=== PATIENT | female | born 1955 | race Caucasian/White ===

== ENCOUNTER → 2020-03-20 09:13 | Outpatient (CLI) | payer MEDICAID, SELFPAY ==
--- NOTE | 2020-03-20 09:13 | US_ITS ---
PROCEDURE: US GALLBLADDER CLINICAL INDICATION: nausea and pain Right upper quadrant pain diarrhea COMPARISON: No exams were available for comparison FINDINGS: Pancreas: Unremarkable/Not well seen Liver: Unremarkable. There is appropriate direction of blood flow within a non dilated portal vein. Right kidney: 3 cm cyst is present along the lower pole of the right kidney. Unremarkable appearing. No hydronephrosis. Gallbladder: No stones are evident. There is no gallbladder wall thickening. Common duct is normal in diameter at 5 mm. IMPRESSION: Negative gallbladder ultrasound. No stones evident. 3 cm right renal cyst Dictated by: Dennys Almaraz MD 03/21/2020 10:21 Electronically signed by Dennys Almaraz MD in [place] 03/21/2020 10:21
--- NOTE | 2020-03-20 09:13 | US_ITS ---
PROCEDURE: US THYROID CLINICAL INDICATION: r/o mass Thyroid nodule COMPARISON: No exams were available for comparison FINDINGS: The right lobe is 3.6 x 1.3 x 1.3 cm. 3 mm mixed nodule mid polar region with some heterogeneous echogenicity. The left lobe is 4.2 x 1.3 x 1.2 cm. There is an isoechoic 1 cm solid nodule in the mid aspect of the left lobe. A 5 mm cyst is present in the lower pole with some internal echoes IMPRESSION: Small bilateral thyroid nodules measuring up to 1 cm in the mid polar region on the left, T rads level 2. Recommend follow-up in 6 months. Dictated by: Dennys Almaraz MD 03/22/2020 08:12 Electronically signed by Dennys Almaraz MD in [place] 03/22/2020 08:12
== END ==
PROVIDERS: PCP Family Medicine; Visit Provider Family Medicine
DX: R10.9 Unspecified abdominal pain (principal); R11.0 Nausea; E04.9 Nontoxic goiter, unspecified
CPT/HCPCS: 76536; 76705

== ENCOUNTER → 2020-06-07 15:15 | Outpatient (CLI) | payer MEDICAID, SELFPAY ==
[2020-06-08 16:53] LABS: Basophils # 0.1 K/mm3 (0-0.2); Basophils % 1.5 % (0.1-2.0); Eosinophils # 0.2 K/mm3 (0.0-0.4); Eosinophils % 2.1 % (0.1-12.0); Hemoglobin 17.4 g/dL (12.2-16.2); Lymphocytes # 2.8 K/mm3 (0.7-4.5); Mean Corpuscular Hemoglobin 31.5 pg (27.0-31.2); Mean Corpuscular Volume 101.6 fl (81-99); Mean Platelet Volume 9.6 fl (7.4-10.4); Monocytes # 0.4 K/mm3 (0.1-1.0); Monocytes % 4.6 % (1.7-9.3); Neutrophils # 5.5 K/mm3 (1.8-7.8); Neutrophils % 60.7 % (37.0-80.0); Platelet Count 321 K/mm3 (142-424); Red Blood Count 5.51 M/mm3 (4.20-5.40); Red Cell Distribution Width 13.5 % (11.5-17.5); White Blood Count 9.1 K/mm3 (4.8-10.8)
[2020-06-08 17:09] LABS: Alanine Aminotransferase 17 U/L (12-78); Albumin/Globulin Ratio 1.5 (1.1-1.8); Alkaline Phosphatase 103 U/L (38-126); Anion Gap 10.7 mEq/L (5-15); Aspartate Amino Transferase 34 U/L (14-36); Bilirubin,Total 0.5 mg/dl (0.2-1.3); Blood Urea Nitrogen 16 mg/dl (7-17); Calcium 9.4 mg/dl (8.4-10.2); Carbon Dioxide 33 mmol/L (22.0-30.0); Chloride 100 mmol/L (98-107); Estimated Glomerular Filt Rate 50 ml/min (>60); GFR (African American) 61 ML/MIN (>60); Globulin 2.6 g/dL (1.3-3.2); Glucose 73 mg/dl (74-100); Potassium 3.7 mmoL/L (3.5-5.1); Sodium 140 mmol/L (136-145); Total Protein,Serum 6.6 g/dl (6.3-8.2)
[2020-06-08 17:26] LABS: T4 (Thyroxine) 9.2 ug/dl (5.53-11.0)
[2020-06-08 17:40] LABS: Thyroid Stimulating Hormone 1.64 uIU/mL (0.465-4.68)
== END ==
PROVIDERS: Visit Provider Family Medicine
DX: G62.9 Polyneuropathy, unspecified (principal); Z98.890 Other specified postprocedural states
CPT/HCPCS: 80053; 84436; 84443; 85025

== ENCOUNTER 2020-11-02 16:23 | Emergency (ER) | payer MEDICAID, SELFPAY ==
[2020-11-02 16:25] VITALS: BP 96/53; PULSE 83; RESP 16; TEMP 37; O2SAT 98; BMI 21.2
--- NOTE | 2020-11-02 16:42 | XR_ITS ---
PROCEDURE: XR FOOT RT MIN 3V CLINICAL INDICATION: injury Pain COMPARISON: No exams were available for comparison FINDINGS: No fracture or dislocation. No lytic or blastic change. There is normal mineralization. The joint spaces are well-preserved. No significant degenerative/arthritic changes. No erosive changes evident. Other findings:None. IMPRESSION: No acute findings. Dictated by: Dennys Almaraz MD 11/02/2020 17:33 Dennys Almaraz MD in [place] 11/02/2020 17:33
--- NOTE | 2020-11-02 16:42 | HMH.EDGENADL ---
ED Disposition Clinical Impression: Right ankle sprain Qualifiers: Encounter type: initial encounter Involved ligament of ankle: unspecified ligament Qualified Code(s): S93.401A - Sprain of unspecified ligament of right ankle, initial encounter Right foot sprain Qualifiers: Encounter type: initial encounter Qualified Code(s): S93.601A - Unspecified sprain of right foot, initial encounter Fracture, fibula, proximal Qualifiers: Encounter type: initial encounter Fracture type: closed Fracture morphology: unspecified fracture morphology Laterality: right Qualified Code(s): S82.831A - Other fracture of upper and lower end of right fibula, initial encounter for closed fracture Disposition: Home, Self-Care Condition on Discharge: Good Instructions: DI for Ankle Sprain, Fibula Shaft Fracture Additional Instructions: Crutches as needed. Orthopedic boot. Ice and elevation to reduce swelling and pain. Ibuprofen for pain. Follow-up with Dr. Gunn, next week. Call Thursday to make appointment Referrals: Branden Rivas MD [Primary Care Provider] - - Critical Care Critical Care Time: No Attestation: On 11/02/20, the high probability of a clinically significant, sudden or life threatening deterioration of the following system(s) required my full and direct attention, intervention and personal management. The time I documented below is in addition to time spent performing reported procedures but includes the following listed in this critical care notation. Medical Decision Making - Medical Records Medical records reviewed: Yes: I reviewed the patient's medical records. MR Comment: Records obtained from [facility]. During the patient's emergency department visit, she had x-rays of both ankles and her right knee. No acute ankle fractures noted. Old avulsion fracture noted left navicular. Unchanged from previous x-rays. Fracture of the fibular neck right lower extremity. - Gerard Inquiry Pt receiving controlled substance: No Vital Signs: 11/02/20 16:25 11/02/20 17:20 Temperature 98.6 F Temperature Source Oral Pulse Rate [Radial] 83 75 Respiratory Rate 16 18 Blood Pressure [Right Arm] 96/53 L 107/60 L Blood Pressure Mean [Right Arm] 67 75 Blood Pressure Source [Right Arm] Automatic Cuff Blood Pressure Position [Right Arm] Sitting Sitting 02 Sat by Pulse Oximetry 98 96 Oxygen Delivery Method Room Air Room Air Orders (Tests/Meds): ORDERS Category Date Time Status Ankle XR -Right minimum 3 Views [XR ankle RT min 3V] Exams 11/02/20 16:43 Taken Stat Foot XR right minimum 3 views [XR foot RT min 3V] Stat Exams 11/02/20 16:42 Taken Tibia/fibula XR right 2 views [XR tibia fibula RT 2V] Exams 11/02/20 16:43 Taken Stat - Radiology Data #1 Image(s): Tib/Fib, Ankle, Foot/Toes Image Reviewed: Yes I reviewed the patient's radiology image Ankle, foot, tib-fib: Acute fracture proximal right fibula. No fracture seen of the ankle or foot. There is soft tissue swelling present. General Adult HPI - General Chief complaint: PAIN Stated complaint: physician referel AO fall injured R knee and ankle Time Seen by Provider: 11/02/20 16:30 Mode of Arrival: Wheelchair Limitations: No Limitations Description of Symptoms (Recalled from ER Triage Doc. by RN): TO ED PER [facility] PT SENT FROM DR RIVAS' OFFICE FOR EVAL DUE TO PAIN RT LEG AND ANKLE. C/O PAIN RT ANKLE AND RT LOWER LEG PT STATES FELL LAST THURSDAY SEEN [facility] DX WITH FRACTURE LEG AND ANKLE SENT HOME WITH KNEE IMMOBILIZER, SEEN BY ORTHO AND IMMOBILIZER WAS D/[facility] AND PT WAS TOLD TO WALK ON IT PT STATES SHE HAS BEEN UNABLE TO BEAR WEIGHT. - History of Present Illness HPI narrative: The patient was sent from her primary care provider, Dr. Rivas, for injuries to her right knee and right ankle. She fell on Thursday 5 days ago at when she got up from the couch. She twisted her ankle. She was seen in the emergency department at
--- NOTE | 2020-11-02 16:43 | XR_ITS ---
PROCEDURE: XR TIBIA FIBULA RT 2V CLINICAL INDICATION: injury Pain COMPARISON: No exams were available for comparison FINDINGS: There is a nondisplaced fracture involving the proximal shaft of the fibula 3 cm distal to the proximal articular surface of the fibula. The joint spaces are well-preserved. No significant degenerative/arthritic changes. No erosive changes evident. Other findings:None. IMPRESSION: Nondisplaced proximal fibular fracture Dictated by: Dennys Almaraz MD 11/02/2020 17:31 Dennys Almaraz MD in [place] 11/02/2020 17:31
--- NOTE | 2020-11-02 16:43 | XR_ITS ---
PROCEDURE: XR ANKLE RT MIN 3V CLINICAL INDICATION: injury Pain pain COMPARISON: No exams were available for comparison FINDINGS: No fracture or dislocation. No lytic or blastic change. There is normal mineralization. The joint spaces are well-preserved. No significant degenerative/arthritic changes. No erosive changes evident. Other findings:Mild soft tissue swelling both medial and lateral. IMPRESSION: Soft tissue swelling otherwise negative Dictated by: Dennys Almaraz MD 11/02/2020 17:32 Dennys Almaraz MD in [place] 11/02/2020 17:32
[2020-11-02 17:20] VITALS: BP 107/60; PULSE 75; RESP 18; O2SAT 96
--- NOTE | 2020-11-02 17:28 | PC.NURSE ---
checked on pt got her a warm blanket. nothing else was needed at this time
[2020-11-02 17:39] VITALS: BP 103/63; PULSE 82; RESP 18; O2SAT 96
[2020-11-02 18:04] VITALS: BP 103/63; PULSE 82; RESP 18; TEMP 37; O2SAT 96
== END 2020-11-02 18:05 | disposition home or self-care (01) ==
PROVIDERS: Emergency Provider Emergency Medicine; PCP Family Medicine
DX: S82.831A Other fracture of upper and lower end of right fibula, initial encounter for closed fracture (principal); X50.1XXA Overexertion from prolonged static or awkward postures, initial encounter; Y92.019 Unspecified place in single-family (private) house as the place of occurrence of the external cause; S93.401A Sprain of unspecified ligament of right ankle, initial encounter; S93.601A Unspecified sprain of right foot, initial encounter; K21.9 Gastro-esophageal reflux disease without esophagitis; I25.10 Atherosclerotic heart disease of native coronary artery without angina pectoris; J44.9 Chronic obstructive pulmonary disease, unspecified; F41.8 Other specified anxiety disorders; Z79.899 Other long term (current) drug therapy
CPT/HCPCS: 73590; 73610; 73630; 99282

== ENCOUNTER 2020-11-12 22:27 | Emergency (ER) | payer MEDICAID, SELFPAY ==
[2020-11-12 22:37] VITALS: BP 121/70; PULSE 98; RESP 22; TEMP 36.5; O2SAT 90; BMI 21.6
[2020-11-12 22:45] VITALS: BP 106/65; PULSE 88; RESP 16; O2SAT 97
--- NOTE | 2020-11-12 23:00 | HMH.EDSOB ---
ED Disposition Clinical Impression: COPD exacerbation Disposition: Home, Self-Care Condition on Discharge: Good Instructions: DI for Chronic Bronchitis Prescriptions: Albuterol Sulfate [Albuterol 0.083% 2.5mg/3mL neb] 2.5 mg IH Q4-6H PRN #30 neb PRN Reason: Shortness Of Breath Transmission Status: Pending to [facility] Doxycycline Hyclate [Doxycycline 100mg Capsule] 100 mg PO Q12 10 Days #20 cap Transmission Status: Pending to [facility] predniSONE [Prednisone 20mg Tab] 40 mg PO DAILY 5 Days #10 tab Transmission Status: Pending to [facility] Referrals: Branden Rivas MD [Primary Care Provider] - Time of Disposition: 00:29 - Critical Care Critical Care Time: No Attestation: On 11/12/20, the high probability of a clinically significant, sudden or life threatening deterioration of the following system(s) required my full and direct attention, intervention and personal management. The time I documented below is in addition to time spent performing reported procedures but includes the following listed in this critical care notation. Medical Decision Making - Medical Records Medical records reviewed: Yes: I reviewed the patient's medical records. - Gerard Inquiry Pt receiving controlled substance: No Vital Signs: 11/12/20 22:37 11/12/20 22:45 Temperature 97.7 F Temperature Source Oral Pulse Rate 88 Pulse Rate [Right] 98 H Respiratory Rate 22 16 Blood Pressure 106/65 L Blood Pressure [Right Arm] 121/70 Blood Pressure Mean [Right Arm] 87 Blood Pressure Source Automatic Cuff Blood Pressure Source [Right Arm] Automatic Cuff Blood Pressure Position Sitting Blood Pressure Position [Right Arm] Supine 02 Sat by Pulse Oximetry 90 L 97 Oxygen Delivery Method Room Air Room Air - Lab Data Lab Results 11/12/20 22:50: WBC 10.3, RBC 4.43, Hgb 13.6, Hct 41.2, MCV 93.1, MCH 30.7, MCHC 33.0, RDW 14.0, Plt Count 361, MPV 7.7, Neut % (Auto) 62.4, Lymph % (Auto) 29.3, Bryan % (Auto) 6.3, Eos % (Auto) 1.3, Baso % (Auto) 0.7, Neut # (Auto) 6.4, Lymph # (Auto) 3.0, Bryan # (Auto) 0.6, Eos # (Auto) 0.1, Baso # (Auto) 0.1 11/12/20 22:50: Sodium 143, Potassium 2.7 L*, Chloride 105, Carbon Dioxide 31 H, Anion Gap 9.7, BUN 6 L, Creatinine 0.80, Estimated Creat Clear 50, Estimated GFR 72, Est GFR ( Amer) 87, Glucose 91, Calcium 9.6, Total Bilirubin 0.5, AST 21, ALT 15, Alkaline Phosphatase 83, Total Protein 6.8, Albumin 3.7, Globulin 3.1, Albumin/Globulin Ratio 1.2 Result diagrams: 11/12/20 22:50 11/12/20 22:50 Orders (Tests/Meds): ED MEDICATIONS Discontinued Medications Generic Name Dose Route Start Last Admin Trade Name Freq PRN Reason Stop Dose Admin Albuterol/Ipratropium 3 ml 11/12/20 23:02 11/12/20 23:20 Albuterol/Ipratropium 3 Ml Neb IH 11/12/20 23:03 3 ml ONCE ONE Administration Methylprednisolone Sodium Succinate 125 mg 11/12/20 23:02 11/12/20 23:20 Methylprednisolone Sod Succ 125mg Vial IV 11/12/20 23:03 125 mg ONCE ONE Administration Potassium Chloride 60 meq 11/13/20 00:08 Potassium Chloride 20meq Tab PO 11/13/20 00:09 ONCE ONE ORDERS Category Date Time Status XR chest AP Stat Exams 11/12/20 23:01 Taken - Radiology Data #1 Image(s): Chest Image Reviewed: Yes I reviewed the patient's radiology image Preliminary Findings: Abnormal Hyperinflation with parenchymal loss consistent with severe chronic lung disease. Atelectasis in the left base with moderate airspace disease in the right lower lobe consistent with pneumonia versus atelectasis. No evidence of pneumothorax or bony abnormality. - ECG Data Tracing #1 Normal sinus rhythm with a rate of [address] segment changes, MA interval within normal limits, QT is 454, no evidence of symptomatic hypokalemia or U wave. ECG initial impression date: 11/13/20 ECG initial impression time: 00:28 Normal Sinus Rhythm: Yes Medical Decision Na
--- NOTE | 2020-11-12 23:01 | XR_ITS ---
PROCEDURE: XR CHEST AP CLINICAL HISTORY: dyspnea COMPARISON: No exams were available for comparison FINDINGS: Emphysema with pulmonary fibrotic changes. No lobar consolidation or collapse. No acute bony findings. Normal heart size. IMPRESSION: Emphysema with pulmonary fibrotic changes Dictated by: Dennys Almaraz MD 11/13/2020 05:21 Dennys Almaraz MD in [place] 11/13/2020 05:21
[2020-11-12 23:08] LABS: Basophils # 0.1 K/mm3 (0-0.2); Basophils % 0.7 % (0.1-2.0); Eosinophils # 0.1 K/mm3 (0.0-0.4); Eosinophils % 1.3 % (0.1-12.0); Hematocrit 41.2 % (37.0-47.0); Hemoglobin 13.6 g/dL (12.2-16.2); Lymphocytes % 29.3 % (10-50); Mean Corpuscular Hemoglobin 30.7 pg (27.0-31.2); Mean Corpuscular Volume 93.1 fl (81-99); Mean Platelet Volume 7.7 fl (7.4-10.4); Monocytes # 0.6 K/mm3 (0.1-1.0); Monocytes % 6.3 % (1.7-9.3); Neutrophils # 6.4 K/mm3 (1.8-7.8); Neutrophils % 62.4 % (37.0-80.0); Platelet Count 361 K/mm3 (142-424); Red Blood Count 4.43 M/mm3 (4.20-5.40); White Blood Count 10.3 K/mm3 (4.8-10.8)
[2020-11-12 23:10] LABS: Chloride 105 mmol/L (98-107); Sodium 143 mmol/L (136-145)
[2020-11-12 23:12] LABS: Blood Urea Nitrogen 6 mg/dl (7-17); Creatinine Clearance Estimated 50 mL/min (50-200); Estimated Glomerular Filt Rate 72 ml/min (>60); GFR (African American) 87 ML/MIN (>60)
[2020-11-12 23:13] LABS: Alanine Aminotransferase 15 U/L (12-78); Albumin Level 3.7 g/dl (3.5-5.0); Albumin/Globulin Ratio 1.2 (1.1-1.8); Alkaline Phosphatase 83 U/L (38-126); Anion Gap 9.7 mEq/L (5-15); Aspartate Amino Transferase 21 U/L (14-36); Bilirubin,Total 0.5 mg/dl (0.2-1.3); Calcium 9.6 mg/dl (8.4-10.2); Carbon Dioxide 31 mmol/L (22.0-30.0); Globulin 3.1 g/dL (1.3-3.2); Glucose 91 mg/dl (74-100); Total Protein,Serum 6.8 g/dl (6.3-8.2)
[2020-11-12 23:26] LABS: Potassium 2.7 mmoL/L (3.5-5.1)
--- NOTE | 2020-11-12 23:27 | PC.NURSE ---
Critical potassium called from lab and relayed to Dr Case
--- NOTE | 2020-11-13 00:10 | ECG_ITS ---
APPROVED REPORT Exam: Resting ECG HR:97 bpm ECG Measurements Heart Rate 97 AXES IL 142 P 82 QRSd 78 QRS 49 QT 358 T 79 QTc 454 Conclusion Normal sinus rhythm Normal ECG Electronically signed by : Nils Martinez, 11/14/2020 17:48:33
[2020-11-13 01:02] VITALS: BP 104/64; PULSE 84; RESP 20; TEMP 36.5; O2SAT 94
== END 2020-11-13 01:05 | disposition home or self-care (01) ==
PROVIDERS: Emergency Provider Student in an Organized Health Care Education/Training Program; PCP Family Medicine
DX: J44.1 Chronic obstructive pulmonary disease with (acute) exacerbation (principal); Z20.822 Contact with and (suspected) exposure to COVID-19; I48.91 Unspecified atrial fibrillation; F41.8 Other specified anxiety disorders; I25.10 Atherosclerotic heart disease of native coronary artery without angina pectoris; K21.9 Gastro-esophageal reflux disease without esophagitis; G43.709 Chronic migraine without aura, not intractable, without status migrainosus; F17.210 Nicotine dependence, cigarettes, uncomplicated; Z79.899 Other long term (current) drug therapy; Z88.0 Allergy status to penicillin; Z88.5 Allergy status to narcotic agent
CPT/HCPCS: 71045; 80053; 85025; 93005; 96374; 99283; U0003

== ENCOUNTER 2021-11-15 11:39 | Emergency (ER) | payer MEDICARE, MEDICAID, SELFPAY ==
[2021-11-15 11:41] VITALS: BP 169/82; PULSE 104; RESP 20; TEMP 36.7; O2SAT 94; BMI 19.8
--- NOTE | 2021-11-15 11:50 | XR_ITS ---
FINAL REPORT TECHNIQUE: Chest PA & Lateral CLINICAL HISTORY: c/o SOA, smoker, dizziness COMPARISON: November 12, 2020 FINDINGS: 2 views of the chest were performed. The heart size is normal. The mediastinum is within normal limits. The lungs are hyperinflated. There is coarse linear density in both lungs probably due to chronic scarring. There are no pleural effusions. There is no pneumothorax. The bony thorax appears intact. IMPRESSION: No acute cardiopulmonary process. Reviewed, Interpreted and Dictated by Michael Nuñez MD Transcribed by David Godinez Authenticated by Michael Nuñez MD on 11/15/2021 12:57:36 PM [facility]
--- NOTE | 2021-11-15 11:51 | PC.NURSE ---
notified Rad of cxr order
--- NOTE | 2021-11-15 12:19 | HMH.EDGENADL ---
ED Disposition Clinical Impression: Acute bronchitis Qualifiers: Bronchitis organism: unspecified organism Qualified Code(s): J20.9 - Acute bronchitis, unspecified COPD (chronic obstructive pulmonary disease) Qualifiers: COPD type: emphysema Emphysema type: unspecified Qualified Code(s): J43.9 - Emphysema, unspecified Disposition: Home, Self-Care Condition on Discharge: Good Instructions: DI for Acute Bronchitis Additional Instructions: Levaquin and Medrol Dosepak as prescribed. See Dr. Rivas on Thursday as scheduled. Return to the emergency department if severe shortness of breath or fever greater than 100 degrees Prescriptions: levoFLOXacin [Levaquin 500mg tab] 500 mg PO DAILY #10 tab Transmission Status: Pending to [facility] methylPREDNISolone [Medrol 4mg tab] 4 mg PO DIRECTED #21 tab Transmission Status: Pending to [facility] Referrals: Branden Rivas MD [Primary Care Provider] - - Critical Care Critical Care Time: No Attestation: On 11/15/21, the high probability of a clinically significant, sudden or life threatening deterioration of the following system(s) required my full and direct attention, intervention and personal management. The time I documented below is in addition to time spent performing reported procedures but includes the following listed in this critical care notation. Medical Decision Making - Gerard Inquiry Pt receiving controlled substance: No Vital Signs: 11/15/21 11:41 Temperature 98.0 F Temperature Source Oral Pulse Rate [Bilateral Radial] 104 H Respiratory Rate 20 Blood Pressure [Right Arm] 169/82 H Blood Pressure Mean [Right Arm] 111 Blood Pressure Source [Right Arm] Automatic Cuff Blood Pressure Position [Right Arm] Sitting 02 Sat by Pulse Oximetry 94 L Oxygen Delivery Method Room Air Orders (Tests/Meds): ORDERS Category Date Time Status Chest XR 2 view (NOT portable) [XR chest 2V] Stat Exams 11/15/21 11:50 Taken Medical Decision Narrative: Continued symptoms of bronchitis. I do not see pneumonia on her chest x-ray. She does have severe emphysema/COPD. Appears to have a resolving right otitis media. I will put her on Levaquin and another Medrol Dosepak and she can follow-up with Dr. Rivas on Thursday as scheduled. General Adult HPI - General Chief complaint: Shortness of Breath/Dyspnea Stated complaint: weakness, soa, sore throat, cough Time Seen by Provider: 11/15/21 12:19 Mode of Arrival: Ambulatory Limitations: No Limitations Description of Symptoms (Recalled from ER Triage Doc. by RN): Pt reports feeling SOA and generalized weakness. Pt states no appetite, poor PO intake. Pt denies n/v/d. Pt states she was treated for pneumonia per her PCP approx 1.5 weeks ago, states not improving. Reports non-productive cough, denies fever - History of Present Illness HPI narrative: States that she has not felt well for a week and a half. She says that she saw her primary care doctor, Dr. Rivas, 11/04/2021. Diagnosed with bronchitis, ear infection, pneumonia. She did not have a chest x-ray. She was given an injection of Rocephin and Decadron and discharged on Zithromax and Medrol Dosepak. She says she has not improved. She has an appointment to see Dr. Rivas on Thursday. She tried to get an sooner but says that she was not able to. She currently complains of shortness of breath, cough producing green sputum. Denies fever. She does not have any earache. She does have a sore throat. - Related Data Home Medications Medication Instructions Recorded Confirmed albuterol sulfate 2.5 mg CONTINUOUS NEBULIZATION 03/16/20 11/04/21 Q4-6H ml aspirin 81 mg tablet,delayed 81 mg PO DAILY 03/16/20 11/04/21 release Previous Rx's Medication Instructions Recorded promethazine 25 mg tablet 25 mg PO Q8H PRN #30 tab 03/08/20 hydrochlorothiazide 25 mg tablet 25 mg PO DAILY #90 tab 03/16/20 potassium chloride 10 mEq 10 meq PO DAILY #90
[2021-11-15 12:50] VITALS: BP 169/82; PULSE 93; RESP 20; TEMP 36.7; O2SAT 97
== END 2021-11-15 12:55 | disposition home or self-care (01) ==
PROVIDERS: Emergency Provider Emergency Medicine; PCP Family Medicine
DX: J20.9 Acute bronchitis, unspecified (principal); J43.9 Emphysema, unspecified; F41.8 Other specified anxiety disorders; K21.9 Gastro-esophageal reflux disease without esophagitis; F17.210 Nicotine dependence, cigarettes, uncomplicated; Z88.0 Allergy status to penicillin; Z79.899 Other long term (current) drug therapy
CPT/HCPCS: 71046; 99283

== ENCOUNTER 2022-04-16 12:15 | Emergency (ER) | payer MEDICARE, MEDICAID, SELFPAY ==
[2022-04-16 14:24] VITALS: BP 0/0; PULSE 0; RESP 0; TEMP -17.7; TEMP 0
== END 2022-04-16 14:25 | disposition home or self-care (01) ==
LOC: UTC 12:21
PROVIDERS: Emergency Provider Nurse Practitioner; PCP Family Medicine
DX: Z53.21 Procedure and treatment not carried out due to patient leaving prior to being seen by health care provider (principal)

== ENCOUNTER → 2022-06-19 12:58 | Outpatient (CLI) | payer MEDICARE, MEDICAID, SELFPAY ==
--- NOTE | 2022-06-19 13:03 | XR_ITS ---
FINAL REPORT TECHNIQUE: Chest PA & Lateral CLINICAL HISTORY: pna COMPARISON: June 08, 2022; October 2021 FINDINGS: 2 views of the chest were performed. The heart size is normal. The mediastinum is within normal limits. The lungs are hyperinflated consistent with COPD. There is a right upper lobe opacity of uncertain significance. There is right apical pleural thickening. There are no pleural effusions. There is no pneumothorax. The bony thorax appears intact. IMPRESSION: Right upper lobe opacity of uncertain significance could represent mycobacterial/fungal disease. Neoplasm cannot be excluded. Reviewed, Interpreted and Dictated by Mark Downs III, MD Transcribed by David Godinez Authenticated and [facility]
== END ==
PROVIDERS: PCP Family Medicine; Visit Provider Family Medicine
DX: J18.9 Pneumonia, unspecified organism (principal)
CPT/HCPCS: 71046

== ENCOUNTER → 2022-08-12 12:43 | Outpatient (CLI) | payer MEDICARE, MEDICAID, SELFPAY ==
--- NOTE | 2022-08-12 13:00 | FL_ITS ---
FINAL REPORT CLINICAL HISTORY: 1:53 FLUORO TIME aspiration pneumonia FINDINGS: MODIFIED BARIUM SWALLOW History: Dysphagia FINDINGS: Fluoroscopy was provided for the speech pathologist to evaluate the swallowing mechanism. The patient was given several different consistencies of barium while the swallow was visualized fluoroscopically. The report of the speech pathologist should be consulted prior to making dietary decisions. FLUOROSCOPY TIME: 1 minute 53 seconds IMPRESSION: Modified barium swallow under fluoroscopic guidance. Please see the report of the speech pathologist for Dietary recommendations. Reviewed, Interpreted and Dictated by Mark Downs III, MD Transcribed by PARUL Harrison Authenticated and [facility]
--- NOTE | 2022-08-13 13:35 | HMH.SLMBS2 ---
Speech & Language Evaluation Speech/Language Mod Barium Swallow Start: 08/12/22 13:41 Freq: once Status: Complete Protocol: Document 08/12/22 13:42 VIDAL (Rec: 08/12/22 14:10 CWEIGLEIN [id number]) General Information General Current Food Consistency Regular,Thin Liquids Dentition Edentulous Oxygen Status Nasal Cannula MBS Recommendations Diet Dietary Recommendations Regular,Thin Liquids Treatment/Strategies Strategy/Precaution Recommend Sitting Upright (90 deg),Small Bites and Sips,Alternate Liquids/Solids Mod Barium Swallow Impressions Summary and Impressions Oral Phase Impression Minimal Impairment Oral Phase Summary Milimal oral dysfunction. Mildly prolonged mastication time with solids 2' lack of dentition. Minimal premature spillage 2' reduced back of tongue strength and coordination. Pharyngeal Phase Impression Minimal Impairment Pharyngeal Phase Summary Minimal pharyngeal dysfunction . No penetration or aspiration was noted on the study. Mild swallow delay. Adequate airway protection noted. Speech/Language MBS Assessment/Goals/Plan Assessment Date of Evaluation: 08/12/22 Evaluation Type Initial Certification Assessment/Problems Aspiration pneumonia Does Patient Qualify for Service No Qualify/Failure Comment Swallow function is WFL, no further skilled ST services warranted at this time. Recommendations PHYSICIAN CERTIFICATION: The specified therapy services are required, authorized, and reviewed every 30 days. Diet Recommendations Normal Liquid Type Recommendations Normal/Thin SL Swallow Guidelines Alt bite w/sip thru meal Dysphagia Swallow Precautions/Strategies Sitting Upright (90 deg),Small Bites and Sips,Alternate Liquids/Solids Place Food on Either side of Mouth Plan Pt/Guardian verbally ack understanding Yes of dx/prognosis/goals Pt/Guardian verbally ack understanding Yes of/consent to tx prog G -code Required No Education Instructions provided MBSS and recommendations discussed with pt and family, who expressed understanding. Pt/Caregiver able to recall information Able to recall/restate Reinforcement needed No Mod Barium Swallow Setup Exam Setup Radiologist Mark Araiza
== END ==
PROVIDERS: PCP Family Medicine; Visit Provider Family Medicine
DX: J69.0 Pneumonitis due to inhalation of food and vomit
CPT/HCPCS: 70371; 92611

== ENCOUNTER 2022-08-25 19:50 | Emergency (ER) | payer MEDICARE, MEDICAID, SELFPAY ==
[2022-08-25] VITALS (8 sets, daily range): BP systolic 77–116; BP diastolic 34–71; PULSE 92–100; RESP 12–22; TEMP 36.5–36.8; O2SAT 96–100; BMI 20.9
--- NOTE | 2022-08-25 19:55 | XR_ITS ---
PROCEDURE INFORMATION: Exam: XR Chest Exam date and time: 08/25/2022 8:38 PM Age: 66 years old Clinical indication: Shortness of breath; Additional info: SOA TECHNIQUE: Imaging protocol: Radiologic exam of the chest. Views: 1 view. COMPARISON: CR XR CHEST 2V 06/19/2022 1:24 PM FINDINGS: Lungs: Hyperventilation with persistent opacity at the right lung apex. Pleural spaces: No pneumothorax. Heart/Mediastinum: No cardiomegaly. Bones/joints: No acute abnormality. IMPRESSION: Hyperventilation with persistent opacity at the right lung apex which may be benign or malignant.
--- NOTE | 2022-08-25 20:11 | HMH.EDGENADL ---
Discharge Plan Disposition Patient Disposition: Home, Self-Care Condition: Good Prescriptions Prescriptions: New Ensure Liquid 3 ea PO DAILY Qty: 3792 2RF No Action mirtazapine 15 mg tablet See Rx Instructions .ROUTE .COMPLEX Qty: 90 3RF Dose Instruction: TAKE ONE TABLET AT BEDTIME FOR APPETITE Rx Instructions: TAKE ONE TABLET AT BEDTIME FOR APPETITE albuterol sulfate 2.5 mg /3 mL (0.083 %) solution for nebulization 2.5 mg continuous nebulization Q4-6H PRN (Reason: Shortness Of Breath) Qty: 90 10RF nicotine 14 mg/24 hr patch 24 hour 1 patch TRANSDERMA Q24H Qty: 28 5RF budesonide-formoterol [Symbicort] 160-4.5 mcg/actuation HFA aerosol inhaler See Rx Instructions .ROUTE .COMPLEX Qty: 10.2 10RF Dose Instruction: INHALE 2 PUFFS BY MOUTH TWO TIMES DAILY Rx Instructions: INHALE 2 PUFFS BY MOUTH TWO TIMES DAILY hydrochlorothiazide 25 mg tablet 25 mg PO DAILY Qty: 90 3RF nicotine 14 mg/24 hr patch 24 hour 1 patch transdermal DAILY Qty: 28 0RF amitriptyline 25 mg tablet See Rx Instructions .ROUTE .COMPLEX Qty: 90 3RF Dose Instruction: TAKE 1 TABLET (25 MG) BY MOUTH ONCE DAILY AT BEDTIME Rx Instructions: TAKE 1 TABLET (25 MG) BY MOUTH ONCE DAILY AT BEDTIME furosemide 40 mg tablet See Rx Instructions .ROUTE .COMPLEX Qty: 90 0RF Dose Instruction: TAKE 1 TABLET BY MOUTH ONCE A DAY Rx Instructions: TAKE 1 TABLET BY MOUTH ONCE A DAY guaifenesin 600 mg tablet extended release 12hr 600 mg PO BID Qty: 60 0RF metoprolol succinate [Toprol XL] 25 mg tablet extended release 24 hr 25 mg PO DAILY Qty: 30 2RF prednisone 10 mg tablet 10 mg PO potassium chloride 10 mEq tablet extended release 10 meq PO DAILY Qty: 90 3RF prednisone 1 mg tablet 1 mg PO Dulera 100-5 mcg/actuation HFA aerosol inhaler 2 inh inhalation levofloxacin 500 mg tablet 500 mg PO DAILY 10 Days Qty: 10 0RF aspirin 81 mg tablet,delayed release (DR/EC) 81 mg PO DAILY ondansetron HCl [Zofran] 4 mg tablet 4 mg PO Q8H Qty: 60 3RF hydroxyzine HCl 50 mg tablet See Rx Instructions .ROUTE .COMPLEX Qty: 90 3RF Dose Instruction: TAKE 1 TABLET (50 MG) BY MOUTH FOUR TIMES DAILY NEEDED FOR ANXIETY Rx Instructions: TAKE 1 TABLET (50 MG) BY MOUTH FOUR TIMES DAILY NEEDED FOR ANXIETY Spiriva Respimat 2.5 mcg/actuation mist 2 inh IH DAILY Qty: 4 10RF alendronate 70 mg tablet See Rx Instructions .ROUTE .COMPLEX Qty: 4 5RF Dose Instruction: TAKE 1 TABLET (70 MG) BY MOUTH ONCE WEEKLY. DO NOT LAY DOWN FOR 30-60 MINUTES AFTER EACH DOSE. TAKE WITH A FULL GLASS OF WATER. Rx Instructions: TAKE 1 TABLET (70 MG) BY MOUTH ONCE WEEKLY. DO NOT LAY DOWN FOR 30-60 MINUTES AFTER EACH DOSE. TAKE WITH A FULL GLASS OF WATER. sumatriptan succinate 100 mg tablet See Rx Instructions .ROUTE .COMPLEX Qty: 9 5RF Dose Instruction: TAKE 1 TABLET BY MOUTH ONCE AT ONSET OF HEADACHE, MAY REPEAT IN 4 HOURS NEEDED, MAX OF 2 TABLETS IN 24 HOURS Rx Instructions: TAKE 1 TABLET BY MOUTH ONCE AT ONSET OF HEADACHE, MAY REPEAT IN 4 HOURS NEEDED, MAX OF 2 TABLETS IN 24 HOURS buspirone 10 mg tablet See Rx Instructions .ROUTE .COMPLEX Qty: 90 5RF Dose Instruction: TAKE 1 TABLET BY MOUTH 3 TIMES A DAY Rx Instructions: TAKE 1 TABLET BY MOUTH 3 TIMES A DAY donepezil 10 mg tablet See Rx Instructions .ROUTE .COMPLEX Qty: 30 5RF Dose Instruction: TAKE 1 TABLET (10 MG) BY MOUTH ONCE DAILY AT BEDTIME Rx Instructions: TAKE 1 TABLET (10 MG) BY MOUTH ONCE DAILY AT BEDTIME gabapentin 100 mg capsule 200 mg PO TID Qty: 180 5RF albuterol sulfate [Ventolin HFA] 90 mcg/actuation HFA aerosol inhaler See Rx Instructions .ROUTE .COMPLEX Qty: 18 10RF Dose Instruction: INAHLE 2 PUFFS BY MOUTH EVERY 4 HOURS NEEDED FOR SHORTNESS OF BREATH Rx Instructions: INAH
[2022-08-25 20:22] LABS: Basophils # 0.1 K/mm3 (0-0.2); Basophils % 0.7 % (0.1-2.0); Eosinophils # 0.2 K/mm3 (0.0-0.4); Eosinophils % 1.8 % (0.1-12.0); Hematocrit 32.6 % (37.0-47.0); Hemoglobin 10.5 g/dL (12.2-16.2); Lymphocytes # 2.3 K/mm3 (0.7-4.5); Mean Corpuscular HGB Conc 32.3 g/dL (31.8-35.4); Mean Corpuscular Hemoglobin 30.6 pg (27.0-31.2); Mean Corpuscular Volume 94.6 fl (81-99); Monocytes # 0.6 K/mm3 (0.1-1.0); Monocytes % 5.3 % (1.7-9.3); Neutrophils # 7.9 K/mm3 (1.8-7.8); Neutrophils % 71.3 % (37.0-80.0); Platelet Count 395 K/mm3 (142-424); Red Blood Count 3.45 M/mm3 (4.20-5.40); Red Cell Distribution Width 15.6 % (11.5-17.5); White Blood Count 11.1 K/mm3 (4.8-10.8)
--- NOTE | 2022-08-25 20:27 | PC.NURSE ---
swab sent to lab
[2022-08-25 20:45] LABS: Coronavirus 19, PCR Not Detected (NotDetected); Influenza A, PCR Not Detected (NotDetected); Influenza B, PCR Not Detected (NotDetected)
[2022-08-25 20:57] LABS: Alanine Aminotransferase 11 U/L (12-78); Albumin Level 2.9 g/dl (3.5-5.0); Albumin/Globulin Ratio 0.9 (1.1-1.8); Alkaline Phosphatase 65 U/L (38-126); Anion Gap 8.3 mEq/L (5-15); Aspartate Amino Transferase 29 U/L (14-36); Bilirubin,Total 0.4 mg/dl (0.2-1.3); Blood Urea Nitrogen 11 mg/dl (7-17); Calcium 7.6 mg/dl (8.4-10.2); Carbon Dioxide 32 mmol/L (22.0-30.0); Chloride 101 mmol/L (98-107); Creatinine Clearance Estimated 47 mL/min (50-200); Estimated Glomerular Filt Rate 84 ml/min (>60); GFR (African American) 101 ML/MIN (>60); Globulin 3.3 g/dL (1.3-3.2); Glucose 109 mg/dl (74-100); Potassium 3.3 mmoL/L (3.5-5.1); Sodium 138 mmol/L (136-145); Total Protein,Serum 6.2 g/dl (6.3-8.2)
[2022-08-25 21:06] LABS: NT Pro Brain Natriuretic Pep. 130 pg/mL (0-125)
[2022-08-25 21:09] LABS: VBG HCO3 34.1 mmol/L (23-30); VBG Oxygen Saturation 37.9 % (50-70); VBG PH 7.32 mmol/L (7.31-7.41); VBG Total CO2 36.2 mmol/L (23-27)
[2022-08-25 21:15] LABS: VBG PCO2 67.4 mmol/L (35-51)
--- NOTE | 2022-08-25 21:19 | CT_ITS ---
PROCEDURE INFORMATION: Exam: CT Chest With Contrast; Diagnostic Exam date and time: 08/25/2022 9:50 PM Age: 66 years old Clinical indication: Shortness of breath; Additional info: Concern for mass TECHNIQUE: Imaging protocol: Diagnostic computed tomography of the chest with contrast. Radiation optimization: All CT scans at this facility use at least one of these dose optimization techniques: automated exposure control; mA and/or kV adjustment per patient size (includes targeted exams where dose is matched to clinical indication); or iterative reconstruction. Contrast material: ISOVUE; Contrast volume: 75 ml; Contrast route: IV; COMPARISON: CR (CHEST, CXR AP LANDSCAPE) 08/25/2022 8:38 PM FINDINGS: Lungs: Advanced emphysema with cavitary area of consolidation within the right upper lobe measuring approximately 4.8 x 6.2 x 5.2 cm. Several additional nodules for example 11 mm nodule within posteromedial right lower lobe and 9 mm subpleural nodule lateral left lower lobe. Pleural spaces: No pneumothorax. No pleural effusion. Heart: No cardiomegaly. No pericardial effusion. Lymph nodes: Enlarged right hilar lymph node measuring 14 mm. Vasculature: Unremarkable. No aortic aneurysm. Bones/joints: No acute fracture. Soft tissues: No signigicant swelling. IMPRESSION: Advanced emphysema with adenopathy multiple pulmonary nodules and dominant masslike area of consolidation anterolateral right upper lobe which may be sequela chronic infectious or inflammatory process versus malignancy.
== END 2022-08-25 23:24 | disposition home or self-care (01) ==
PROVIDERS: Emergency Provider Emergency Medicine; PCP Family Medicine
DX: J42 Unspecified chronic bronchitis (principal); F17.210 Nicotine dependence, cigarettes, uncomplicated; Z87.01 Personal history of pneumonia (recurrent); Z82.49 Family history of ischemic heart disease and other diseases of the circulatory system; Z20.822 Contact with and (suspected) exposure to COVID-19
CPT/HCPCS: 71045; 71260; 80053; 82803; 83605; 83880; 85025; 87040; 99285; C9803; Q9967; U0003; U0005

== ENCOUNTER → 2022-10-03 14:48 | Outpatient (CLI) | payer MEDICARE, MEDICAID, SELFPAY | PROVIDERS: PCP Family Medicine; Visit Provider Family Medicine | DX: J18.9 Pneumonia, unspecified organism (principal) | CPT/HCPCS: 87070; 87116; 87186; 87205; 87206; 87220 ==

== ENCOUNTER 2022-12-01 08:29 | Day surgery (SDC) | payer MEDICARE, MEDICAID, SELFPAY ==
[2022-11-26 09:49] VITALS: BMI 19.7
[2022-12-01] VITALS (11 sets, daily range): BP systolic 103–124; BP diastolic 54–79; PULSE 78–95; RESP 16–18; TEMP 36.1–43; O2SAT 98–100
--- NOTE | 2022-12-01 09:05 | SUR.PREOP ---
Attempted to go through all home medications one by one to determine last dose but pt says they are packaged by pharmacy and her son takes care of all of that so doesn't know the names or when she took them last. Just says she took spiriva and albuterol this morning and some pills last night and some yesterday morning.
--- NOTE | 2022-12-01 09:38 | P.PN_ITS ---
[facility] Disclaimer: The information contained in this section may have been updated after the patient was seen, as this information can be updated by other users. Medical History Anxiety and depression Arrhythmia Cavitary lesion of lung Chronic respiratory failure with hypoxia COPD (chronic obstructive pulmonary disease) COPD mixed type Dyspnea on exertion Family history of coronary artery disease Lung abscess Pulmonary emphysema Smoking greater than 30 pack years Tobacco abuse Surgical History No history of previous surgery Family History Other Cancer Diabetes Social History Smoking Status: Current every day smoker tobacco type: cigarettes packs per day: 2 alcohol intake: never substance use type: denies use current occupational status: unemployed and retired Travel in the last 8 weeks: None [facility] Anesthesia Checklist Patient Identification Patient Identification: Arm Band and Verbal (Name & ) Structural Data Admitted From: Home Planned Operative Procedure/s: Bronchoscopy Consent for Planned Operative Procedure(s) Verified: Yes NPO Status Verified Time NPO: 00:00 Additional verifications Anesthesia Reactions: No Hx Blood Transfusions: No Airway Assessment C-Spine Mobility Assessed: Yes TMJ Mobility Assessed: Yes Dentition: Edentulous Neurological Assessment Level of Consciousness: Awake Hx Seizures: No Numbness or tingling in extremities: No Anesthesia Plan Anesthesia Risk discussed: Yes Anesthesia Plan: Verified ASA Class: IV Anesthesia Type: General
--- NOTE | 2022-12-01 09:38 | SUR.PREOP ---
Notified Dayana Kraft RN of pt unsure of medication days and times. Verbalized understanding.
--- NOTE | 2022-12-01 10:56 | XR_ITS ---
FINAL REPORT CLINICAL HISTORY: BRONCHOSCOPY, FLUORO TIME 138 SECONDS FINDINGS: FLUORO TIME PROCEDURE: Bronchoscopy FINDINGS: Fluoroscopy time was provided by the radiology department for the clinical service. Three films were obtained. Fluoroscopy exposure time: 138 seconds IMPRESSION: See above Reviewed, Interpreted and Dictated by Mark Downs III, MD Transcribed by Rosa Rivas Authenticated and [facility]
--- NOTE | 2022-12-01 11:08 | EXP.ANES.I ---
[facility] Anesthesia Record Part I Anesthesia Record I Intake, IV Amount: 900 Estimated blood loss (mL): 0 Urine output (mL): 0 Blood Products used (#): none Blood Pressure: 124/77 SaO2: 100 Pulse Rate: 84 Respiratory Rate: 16 Temperature: 97.5 F Patient is:: Drowsy and Stable Stable to PACU at:: 11:05
--- NOTE | 2022-12-01 11:12 | XR_ITS ---
FINAL REPORT CLINICAL HISTORY: S/P bronchoscopy COMPARISON: 08/25/2022 FINDINGS: A single portable view of the chest was obtained. The heart size and pulmonary vascularity are within normal limits. The mediastinum is within normal limits. There is worsening right upper lobe opacity. There is bilateral scarring. There is no pneumothorax. The bony thorax is intact. IMPRESSION: Worsening right upper lobe opacity with bilateral pulmonary scarring. No pneumothorax. Reviewed, Interpreted and Dictated by Mark Downs III, MD Transcribed by Rosa Rivas Authenticated and [facility]
--- NOTE | 2022-12-01 11:15 | EXP.BRONCH.N ---
Procedure: Date: 12/01/22 Patient Date of :: 1955 Procedure Performed:: Bronchoscopy airway examination, bronchoalveolar lavage and transbronchial lung biopsy Indications:: Cavitary Lung lesion, Fungal Pneumonia. Performing Provider:: Ana Rosa Aly MD Referring Provider:: Dr:Branden Corona MD Sedation:: General Anesthesia Procedure:: Bronchoscopy airway examination, bronchoalveolar lavage and transbronchial lung biopsy: A clean DIAGNOSTIC bronchoscopy was advanced through the ET tube and airways were examined up to subsegmental bronchi. Airways appeared grossly normal except for Copious amount of mucoid secretions noted. No evidence of mucous plugging active bleeding/old blood clots noted. Bronchoalveolar lavage was performed in the RIGHT UPPER LOBE with instillation of 60 cc normal saline with return of 30 cc back. BAL fluid was sent for cell count and differential along with bacterial fungal and AFB stain and cultures. Transbronchial biopsy was performed in the RIGHT UPPER LOBE with a total of 7 biopsies performed, 5 biopsy specimens were sent in formalin for cytopathologic examination. The other 2 biopsy samples, were sent one each in two separate normal saline specimen cups for bacterial fungal and AFB stain cultures. Special request was also made for the pathologist to evaluate for AFB and fungal organisms on the cytopathologic examination. Patient tolerated the procedure with no immediate acute complications. We will follow the patient in pulmonary clinic in 7 to 10 days. Findings:: Please see the procedure notes. Recommendations:: Follow in clinic in 5-7 days. Bronchoscopy postprocedure discharge instruction Complications:: No acute immediate complicitions Estimated blood obtained (mL): 10
--- NOTE | 2022-12-01 11:21 | PC.NURSE ---
Chest XR completed per radiology.
[2022-12-01 12:32] LABS: Basophils # 0.1 K/mm3 (0-0.2); Basophils % 0.4 % (0.1-2.0); Eosinophils # 0.2 K/mm3 (0.0-0.4); Eosinophils % 1.5 % (0.1-12.0); Hematocrit 41.5 % (37.0-47.0); Hemoglobin 12.5 g/dL (12.2-16.2); Lymphocytes # 2.3 K/mm3 (0.7-4.5); Lymphocytes % 20.2 % (10-50); Mean Corpuscular HGB Conc 30.1 g/dL (31.8-35.4); Mean Corpuscular Hemoglobin 28.2 pg (27.0-31.2); Mean Corpuscular Volume 93.6 fl (81-99); Mean Platelet Volume 7.2 fl (7.4-10.4); Monocytes # 0.3 K/mm3 (0.1-1.0); Monocytes % 2.9 % (1.7-9.3); Neutrophils # 8.6 K/mm3 (1.8-7.8); Neutrophils % 75.1 % (37.0-80.0); Platelet Count 424 K/mm3 (142-424); Red Blood Count 4.43 M/mm3 (4.20-5.40); Red Cell Distribution Width 15.8 % (11.5-17.5); White Blood Count 11.5 K/mm3 (4.8-10.8)
--- NOTE | 2022-12-01 12:36 | EXP.ANES.II ---
[facility] Anesthesia Record Part II Anesthesia Record Part II Discharge Time: 11:25 Destination: Surgical Day Care (OP Surgery) PACU nurse assessment reviewed?: Yes Patient Condition:: Good Anesthesia Complications:: None Swallowing reflex intact?: Yes Cyanosis?: No Blood Pressure: 111/69 Pulse Rate: 79 Temperature: 97 F Mental Status: Alert & Oriented Pain level:: 0 Nausea and/or vomitting:: None Intake, IV Amount: 0
[2022-12-01 14:25] LABS: Chloride 104 mmol/L (98-107); Potassium 4.1 mmoL/L (3.5-5.1); Sodium 141 mmol/L (136-145)
[2022-12-01 14:28] LABS: Alanine Aminotransferase 15 U/L (12-78); Albumin Level 3.6 g/dl (3.5-5.0); Albumin/Globulin Ratio 1.1 (1.1-1.8); Alkaline Phosphatase 83 U/L (38-126); Anion Gap 8.1 mEq/L (5-15); Aspartate Amino Transferase 29 U/L (14-36); Bilirubin,Total 0.3 mg/dl (0.2-1.3); Blood Urea Nitrogen 9 mg/dl (7-17); Carbon Dioxide 33 mmol/L (22.0-30.0); Creatinine Clearance Estimated 46 mL/min (50-200); Estimated Glomerular Filt Rate 84 ml/min (>60); GFR (African American) 101 ML/MIN (>60); Globulin 3.3 g/dL (1.3-3.2); Total Protein,Serum 6.9 g/dl (6.3-8.2)
[2022-12-01 14:29] LABS: Glucose 105 mg/dl (74-100)
[2022-12-01 14:34] LABS: C-Reactive Protein 6.8 mg/L (0-4)
[2022-12-03 19:56] LABS: QuantiFERON-TB Gold Plus Negative (Negative)
[2022-12-04 06:13] LABS: Aspergillus Antigen, BAL/Serum 0.06 Index (0.00-0.49)
[2022-12-04 16:33] LABS: M003-IgE Aspergillus fumigatus <0.10 kU/L (Class 0)
[2022-12-07 11:08] LABS: Aspergillus flavus Negative (Neg:<1:1); Aspergillus niger Negative (Neg:<1:1); Blastomyces Antibody Negative (Neg:<1:1)
== END 2022-12-01 12:11 | disposition home or self-care (01) ==
PROVIDERS: PCP Family Medicine; Visit Provider Internal Medicine Pulmonary Disease
DX: J84.10 Pulmonary fibrosis, unspecified (principal); B44.9 Aspergillosis, unspecified; B49 Unspecified mycosis; J16.8 Pneumonia due to other specified infectious organisms; J45.909 Unspecified asthma, uncomplicated; J84.9 Interstitial pulmonary disease, unspecified; R06.09 Other forms of dyspnea; F17.210 Nicotine dependence, cigarettes, uncomplicated; Z79.899 Other long term (current) drug therapy; J98.4 Other disorders of lung
CPT/HCPCS: 31624; 31628; 36415; 71045; 80053; 85025; 86003; 86140; 86480; 86606; 86612; 87070; 87077; 87102; 87116; 87186; 87205; 87206; 87305; 88112; 88305; 89051; J2405

== ENCOUNTER 2023-09-20 17:44 | Inpatient (IN) | payer MEDICARE, OTHER, MEDICAID, SELFPAY ==
[2023-09-20 17:46] VITALS: BP 100/67; PULSE 95; RESP 31; TEMP 36.6; O2SAT 97; BMI 19.5
[2023-09-20 18:07] VITALS: BP 100/67; PULSE 95; RESP 26; O2SAT 96
--- NOTE | 2023-09-20 18:27 | ECG_ITS ---
APPROVED REPORT Exam: Resting ECG HR:75 bpm ECG Measurements Heart Rate 75 AXES QRSd 79 QRS 24 QT 364 T 78 QTc 393 Conclusion SUPRAVENTRICULAR RHYTHM NONSPECIFIC ST & T-WAVE ABNORMALITY ABNORMAL RHYTHM ECG UNCONFIRMED REPORT Electronically signed by : Nils Martinez MD 09/22/2023 16:43:56
[2023-09-20 18:32] LABS: Microscopic, Urine URINE MICROSCOPIC (MICROSCOPIC)
[2023-09-20 18:32] LABS: Coronavirus 19, PCR Not Detected (NotDetected); Influenza A, PCR Not Detected (NotDetected); Influenza B, PCR Not Detected (NotDetected)
[2023-09-20 18:34] LABS: Basophils # 0.1 K/mm3 (0-0.2); Basophils % 0.5 % (0.1-2.0); Eosinophils % 0.1 % (0.1-12.0); Hematocrit 40.2 % (37.0-47.0); Hemoglobin 13.4 g/dL (12.2-16.2); Lymphocytes # 2.9 K/mm3 (0.7-4.5); Lymphocytes % 15.9 % (10-50); Mean Corpuscular HGB Conc 33.2 g/dL (31.8-35.4); Mean Corpuscular Hemoglobin 30.2 pg (27.0-31.2); Mean Corpuscular Volume 90.9 fl (81-99); Mean Platelet Volume 7.8 fl (7.4-10.4); Monocytes # 0.5 K/mm3 (0.1-1.0); Monocytes % 2.8 % (1.7-9.3); Neutrophils # 14.5 K/mm3 (1.8-7.8); Neutrophils % 80.6 % (37.0-80.0); Platelet Count 229 K/mm3 (142-424); Red Blood Count 4.42 M/mm3 (4.20-5.40); Red Cell Distribution Width 14.8 % (11.5-17.5)
[2023-09-20 18:36] LABS: Appearance,Urine CLEAR (Clear); Bilirubin,Urine Negative (Negative); Blood, Urine TRACE-I (Negative); Color,Urine YELLOW (Yellow); Glucose,Urine (UA) Negative (Negative); Ketones,Urine Negative (Negative); Leukocyte Esterase,Urine Negative (Negative); Nitrate,Urine Negative (Negative); Protein,Urine 1+ (Negative); Specific Gravity, Urine 1.025 (1.005-1.030); Urobilinogen,Urine 0.2 EU/dl (0.2)
[2023-09-20 18:36] LABS: Chloride 82 mmol/L (98-107); Sodium 135 mmol/L (136-145)
[2023-09-20 18:39] LABS: Alanine Aminotransferase 30 U/L (12-78); Albumin Level 3.2 g/dl (3.5-5.0); Albumin/Globulin Ratio 0.9 (1.1-1.8); Alkaline Phosphatase 95 U/L (38-126); Aspartate Amino Transferase 53 U/L (14-36); Bilirubin,Total 0.6 mg/dl (0.2-1.3); Blood Urea Nitrogen 9 mg/dl (7-17); Creatinine Clearance Estimated 43 mL/min (50-200); Estimated Glomerular Filt Rate 55 ml/min (>60); GFR (African American) 67 ML/MIN (>60); Globulin 3.6 g/dL (1.3-3.2); MANUAL DIFFERENTIAL MANUAL DIFFERENTIAL (MANUAL DIFF); Total Protein,Serum 6.8 g/dl (6.3-8.2)
[2023-09-20 18:40] LABS: Glucose 107 mg/dl (74-100)
[2023-09-20 18:47] LABS: Anion Gap 8.7 mEq/L (5-15); Carbon Dioxide 47 mmol/L (22.0-30.0)
[2023-09-20 18:48] LABS: Potassium 2.7 mmoL/L (3.5-5.1)
[2023-09-20 18:50] LABS: Bacteria,Urine Trace /lpf; Hyaline Casts,Urine Occasional #/lpf (0); RBC,Urine Occasional #/hpf (0-3)
[2023-09-20 18:51] LABS: Troponin I 0.02 ng/ml (0.00-0.034)
[2023-09-20 18:53] LABS: Lymphocytes % 23 % (10-50); Monocytes % 2 % (2-9); Neutrophils % 75 % (42-76); Platelet Estimate Normal; Total Cells Counted 100
[2023-09-20 18:54] LABS: Hypochromasia 1+
--- NOTE | 2023-09-20 19:00 | HMH.EDGENADL ---
Discharge Plan Disposition Patient Disposition: Admitted Prescriptions Prescriptions: No Action hydroxyzine HCl 50 mg tablet See Rx Instructions .ROUTE .COMPLEX Qty: 120 0RF Rx Instructions: TAKE 1 TABLET (50 MG) BY MOUTH FOUR TIMES DAILY NEEDED FOR ANXIETY itraconazole 100 mg capsule 200 mg PO BID Qty: 60 0RF Rx Instructions: Must administer with a meal/food albuterol sulfate [Ventolin HFA] 90 mcg/actuation HFA aerosol inhaler See Rx Instructions .ROUTE .COMPLEX Qty: 8.5 10RF Rx Instructions: INAHLE 2 PUFFS BY MOUTH EVERY 4 HOURS NEEDED FOR SHORTNESS OF BREATH alendronate 70 mg tablet See Rx Instructions .ROUTE .COMPLEX Qty: 5 10RF Rx Instructions: TAKE 1 TABLET (70 MG) BY MOUTH ONCE WEEKLY. DO NOT LAY DOWN FOR 30-60 MINUTES AFTER EACH DOSE. TAKE WITH A FULL GLASS OF WATER. amitriptyline 25 mg tablet See Rx Instructions .ROUTE .COMPLEX Qty: 90 3RF Rx Instructions: TAKE 1 TABLET (25 MG) BY MOUTH ONCE DAILY AT BEDTIME diazepam 10 mg tablet 10 mg PO QHS PRN (Reason: Anxiety) Qty: 30 5RF gabapentin 100 mg capsule 200 mg PO TID Qty: 90 5RF ipratropium-albuterol 0.5 mg-3 mg(2.5 mg base)/3 mL solution for nebulization 3 ml inhalation Q6H PRN (Reason: shortness of breath or wheezing) Qty: 180 10RF Rx Instructions: for 3 doses ipratropium-albuterol 0.5 mg-3 mg(2.5 mg base)/3 mL solution for nebulization 3 ml inhalation QID PRN (Reason: shortness of breath or wheezing) 90 Days Qty: 270 3RF Trelegy Ellipta 200-62.5-25 mcg blister with device 1 inh inhalation DAILY Qty: 60 10RF furosemide 20 mg tablet 20 mg PO DAILY Qty: 30 0RF prednisone 20 mg tablet 20 mg PO .COMPLEX Qty: 15 0RF Rx Instructions: 20 mg orally BID x 5 days then daily x 5 days levofloxacin 500 mg tablet 500 mg PO Q24H Qty: 10 0RF Spiriva Respimat 2.5 mcg/actuation mist See Rx Instructions .ROUTE .COMPLEX Qty: 4 10RF Dose Instruction: USE 2 INHALATIONS BY MOUTH DAILY Rx Instructions: USE 2 INHALATIONS BY MOUTH DAILY dronabinol [Marinol] 2.5 mg capsule 2.5 mg PO BID PRN (Reason: appetite) Qty: 60 3RF Rx Instructions: administer before lunch and evening meal/dinner sumatriptan succinate 100 mg tablet See Rx Instructions .ROUTE .COMPLEX Qty: 9 0RF Dose Instruction: TAKE 1 TABLET BY MOUTH ONCE AT ONSET OF HEADACHE, MAY REPEAT IN 4 HOURS NEEDED, MAX OF 2 TABLETS IN 24 HOURS Rx Instructions: TAKE 1 TABLET BY MOUTH ONCE AT ONSET OF HEADACHE, MAY REPEAT IN 4 HOURS NEEDED, MAX OF 2 TABLETS IN 24 HOURS levofloxacin 750 mg tablet 750 mg PO DAILY 10 Days Qty: 10 0RF prochlorperazine maleate 10 mg tablet See Rx Instructions .ROUTE .COMPLEX Qty: 60 0RF Dose Instruction: TAKE 1 TABLET BY MOUTH 2 TIMES A DAY NEEDED FOR NAUSEA AND/OR VOMITING Rx Instructions: TAKE 1 TABLET BY MOUTH 2 TIMES A DAY NEEDED FOR NAUSEA AND/OR VOMITING [id number]-[id number] [Fioricet] 50-300-40 mg capsule 1 cap PO TID PRN (Reason: headache) Qty: 60 3RF aspirin 81 mg tablet,delayed release (DR/EC) 81 mg PO DAILY Dulera 100-5 mcg/actuation HFA aerosol inhaler 2 inh inhalation BID Referrals Follow up/Referrals: Branden Rivas MD [Primary Care Provider] - See instructions Clinical Impressions Clinical Impression: Dehydration, moderate, Diarrhea, Generalized weakness, Hypokalemia, Adult failure to thrive Discharge ED Provider: Priyanka Lenz General Adult HPI General Chief complaint: Weakness Stated complaint: [id number], weak, fell at home Time Seen by Provider: 09/20/23 18:46 Mode of Arrival: Wheelchair Source of Information: Patient and Relative Limitations: No Limitations Description of Symptoms (Recalled from ER Triage Doc. by RN): pt is here today for generalized weakness x2 weeks, pt is very thin and fragile appearing and wearing a nasal cannula on empty o2 tank. family states she had messed on herself. pt has hx of chf and opd. pt family is worried about feet swelling not going down with her lasix History of Present Illness HPI narrative: Patient is a 67-year-old female presents today with multiple complaints. States that she was started several weeks ago on antibiotics for lower extremity cellulitis which has since improved but since that time she developed diarrhea and has had persistent diarrhea for the last 2 weeks. And over the last several days she has had profound decline in her functional status she typically lives at home but has required him creased help with her sons. States she is very generally weak at the moment. No focal weakness. No significant abdominal pain chest pain shortness of breath fevers chills etc. Related Data Home Medications Medication Instructions Recorded Confirmed aspirin 81 mg tablet,delayed 81 mg PO DAILY Supplement 11/26/22 09/08/23 release mometasone-formoterol HFA 100 2 inh inhalation BID . 11/26/22 09/08/23 mcg-5 mcg/actuation aerosol inhaler (Dulera) Previous Rx's Medication Instructions Recorded hydroxyzine HCl 50 mg tablet See Rx Instructions .Route 12/26/22 .COMPLEX . #120 tabs tiotropium bromide 2.5 See Rx Instructions .Route 02/03/23 mcg/actuation mist for inhalation .COMPLEX #4 grams (Spiriva Respimat) itraconazole 100 mg capsule 200 mg PO BID #60 caps 02/10/23 dronabinol 2.5 mg capsule (Marinol) 2.5 mg PO BID PRN appetite #60 caps 02/12/23 sumatriptan succinate 100 mg tablet See Rx Instructions .Route 05/06/23 .COMPLEX #9 tabs albuterol sulfate 90 mcg/actuation See Rx Instructions .Route 07/03/23 aerosol inhaler (Ventolin HFA) .COMPLEX COPD #8.5 grams alendronate 70 mg tablet See Rx Instructions .Route 07/03/23 .COMPLEX . #5 tabs amitriptyline 25 mg tablet See Rx Instructions .Route 07/03/23 .COMPLEX Depression #90 tabs diazepam 10 mg tablet 10 mg PO QHS PRN Anxiety #30 tabs 07/03/23 fluticasone fur. 200 mcg-umeclid 1 inh inhalation DAILY #60 ea 07/03/23 62.5 mcg-vilant 25 mcg inhalat.powder (Trelegy Ellipta) gabapentin 100 mg capsule 200 mg PO TID Pain #90 caps 07/03/23 ipratropium 0.5 mg-albuterol 3 mg 3 ml inhalation Q6H PRN shortness 07/03/23 (2.5 mg base)/3 mL nebulization of breath or wheezing #180 mL soln ipratropium 0.5 mg-albuterol 3 mg 3 ml inhalation QID PRN shortness 07/03/23 (2.5 mg base)/3 mL nebulization of breath or wheezing 90 days #270 soln mL furosemide 20 mg tablet 20 mg PO DAILY #30 tabs 09/08/23 levofloxacin 500 mg tablet 500 mg PO Q24H #10 tabs 09/08/23 prednisone 20 mg tablet 20 mg PO .COMPLEX #15 tabs 09/08/23 levofloxacin 750 mg tablet 750 mg PO DAILY 10 days #10 tabs 09/16/23 rfdggkgpfe-biaodxitizeao-irydcnji 1 cap PO TID PRN headache #60 caps 09/18/23 50 mg-300 mg-40 mg capsule (Fioricet) prochlorperazine maleate 10 mg See Rx Instructions .Route 09/18/23 tablet .COMPLEX #60 tabs Allergies Allergy/AdvReac Type Severity Reaction Status Date / Time codeine Allergy Verified 09/08/23 08:52 Penicillins Allergy Verified 09/08/23 08:52 lithium AdvReac Unknown Verified 09/08/23 08:52 [facility] Disclaimer: The information contained in this section may have been updated after the patient was seen, as this information can be updated by other users. Medical History (Updated 09/20/23 @ 19:00 by Priyanka Lenz MD) Abnormal computerized axial tomography of chest Anxiety and depression Arrhythmia Bilateral lower extremity edema Bronchopulmonary aspergillosis Cavitary lesion of lung Chronic respiratory failure with hypoxia COPD (chronic obstructive pulmonary disease) COPD mixed type Dyspnea on exertion Family history of coronary artery disease Fungal pneumonia ILD (interstitial lung disease) Lung abscess Pulmonary emphysema Smoking greater than 30 pack years Tobacco abuse Surgical History History of knee surgery Family History Other Cancer Diabetes Social History Smoking Status: Current every day smoker tobacco type: cigarettes packs per day: 2 alcohol intake: never substance use type: denies use current occupational status: unemployed and retired Travel in the last 8 weeks: None ROS Obtained: Yes All systems reviewed & no additional complaints except as documented Physical Exam General General appearance: cachectic Respiratory Respiratory exam: Present normal lung sounds bilaterally; Absent respiratory distress Cardiovascular Cardiovascular exam: Present other (Delayed capillary refill poor skin turgor dry mucous membrane); Absent tachycardia Abdominal Exam Abdominal exam: Present soft; Absent distention or tenderness Neurological Exam Neurological exam: Present alert and oriented X3 Medical Decision Making Gerard Inquiry Pt receiving controlled substance: No Vital Signs: 09/20/23 17:46 Temperature 97.9 F Temperature Source Oral Pulse Rate [Right Radial] 95 H Respiratory Rate 31 H Blood Pressure [Right Arm] 100/67 L Blood Pressure Mean [Right Arm] 78 02 Sat by Pulse Oximetry 97 Oxygen Delivery Method Nasal Cannula Oxygen Flow Rate (LPM) 3 Lab Data Lab results reviewed: Yes I reviewed the patient's lab results. Lab Results 09/20/23 17:55: SARS-CoV-2 (PCR) Not detected, Influenza A Untype (PCR) Not detected, Influenza Type B (PCR) Not detected 09/20/23 18:05: WBC 18.0 H, RBC 4.42, Hgb 13.4, Hct 40.2, MCV 90.9, MCH 30.2, MCHC 33.2, RDW 14.8, Plt Count 229, MPV 7.8, Neut % (Auto) 80.6 H, Lymph % (Auto) 15.9, [place] % (Auto) 2.8, Eos % (Auto) 0.1, Baso % (Auto) 0.5, Neut # (Auto) 14.5 H, Lymph # (Auto) 2.9, [place] # (Auto) 0.5, Eos # (Auto) 0.0, Baso # (Auto) 0.1, Total Counted 100, Neutrophils % (Manual) 75, Lymphocytes % (Manual) 23, Monocytes % (Manual) 2, Platelet Estimate Normal, Hypochromasia 1+, Sodium 135 L, Potassium 2.7 L*, Chloride 82 L, Carbon Dioxide 47 H*, Anion Gap 8.7, BUN 9, Creatinine 1.00, Estimated Creat Clear 43, Estimated GFR 55 L, Est GFR ( Amer) 67, Glucose 107 H, Calcium 8.0 L, Total Bilirubin 0.6, AST 53 H, ALT 30, Alkaline Phosphatase 95, Troponin I 0.02, Total Protein 6.8, Albumin 3.2 L, Globulin 3.6 H, Albumin/Globulin Ratio 0.9 L 09/20/23 18:06: Urine Color Yellow, Urine Appearance Clear, Urine pH 6.0, Ur Specific [place] 1.025, Urine Protein 1+, Urine Glucose (UA) Negative, Urine Ketones Negative, Urine Blood Trace-i, Urine Nitrate Negative, Urine Bilirubin Negative, Urine Urobilinogen 0.2, Ur Leukocyte Esterase Negative, Urine RBC Occasional, Urine WBC 3-5, Ur Squamous Epith Cells 3-5, Urine Bacteria Trace, Hyaline Casts Occasional 09/20/23 18:05 09/20/23 18:05 Orders (Tests/Meds): ED MEDICATIONS Generic Name Dose Route Start Last Admin Trade Name Freq PRN Reason Stop Dose Admin Lactated Ringer's 500 mls @ 999 mls/hr 09/20/23 19:00 Lactated Ringer's 1000 Ml Bag IV 09/20/23 19:30 .Q31M IVANA Potassium Chloride/Water 100 mls @ 100 mls/hr 09/20/23 19:00 Potassium Chloride 10meq/100ml Ivpb IV 09/20/23 21:59 Q1H IVANA Potassium Chloride 40 meq 09/20/23 18:55 Potassium Chloride 20meq Tab PO 09/20/23 18:56 ONCE ONE ORDERS Category Date Time Status Complete Blood Count Auto Diff Stat Lab 09/20/23 18:05 Completed Comprehensive Metabolic Panel Stat Lab 09/20/23 18:05 Completed Diarrhea 23 Panel, PCR Stat Lab 09/20/23 18:55 Ordered Lactic Acid Stat Lab 09/20/23 18:55 Ordered Magnesium Stat Lab 09/20/23 18:55 Ordered Phosphorous Stat Lab 09/20/23 18:55 Ordered Rapid PCR Covid and Flu A/B Stat Lab 09/20/23 17:55 Completed Troponin I Q3H Lab 09/20/23 21:30 Ordered Troponin I Q3H Lab 09/21/23 00:30 Ordered Troponin I Stat Lab 09/20/23 18:05 Completed UA [Urinalysis and Microscopic] Stat Lab 09/20/23 18:06 Completed Medical Decision Narrative: Patient is a 67-year-old cachectic appearing female presenting today with functional decline after several weeks of diarrhea that were preceded by antibiotic use for lower extremity cellulitis which is since improved. I suspect she probably has C. difficile colitis we will send a GI PCR panel off. IV fluids are initiated she is profoundly hypokalemic this will require an extensive period of replacement. Abdominal exam is completely benign at this point I do not suspect toxic megacolon no indication for emergent CT imaging. She will need to be admitted for IV fluids and replacement of her potassium and further evaluation and treatment for possible C. difficile colitis. Family is aware of this plan I discussed the case with hospital medicine. Critical Care Critical Care Time Critical Care Time: No
[2023-09-20 19:07] LABS: Phosphorous 3.1 mg/dl (2.5-4.5)
[2023-09-20 19:08] LABS: Magnesium 1.5 mg/dl (1.6-2.3)
[2023-09-20 19:10] LABS: Lactic Acid 2.5 mmol/L (0.7-2.1)
[2023-09-20] MEDS: POTASSIUM CHLORIDE 20MEQ TAB 40 MEQ PO (19:21)
[2023-09-20] MEDS: LACTATED RINGERS 1000ML 500 ML 999 ML IV (19:22)
[2023-09-20] MEDS: KCl 10mEq/100ml 100 ML 100 MEQ IV ×3 (19:38→22:48)
--- NOTE | 2023-09-20 20:01 | EXP.HP ---
History of Present Illness *Admission Date: 09/20/23 *Reason for visit:: dehydration. weakness *History of present illness: This is a 67-year-old female with extensive PMHx, including but not limited to COPD, with cachexia, smoker, ILD, Afib, of presented today c/o weakness, secondary to diarrhea. Stated she been on antibiotic (levofloxacin) for cellulitis of the lower extremities, and developed a persistent diarrhea over the last 2 weeks . She also c/o for over the last several days she has had profound weakness with declining in her functional status. Requiring help from her son. States she is very generally weak at the moment. No focal weakness. No significant abdominal pain chest pain shortness of breath fevers chills etc. [facility] Disclaimer: The information contained in this section may have been updated after the patient was seen, as this information can be updated by other users. Medical History (Updated 09/21/23 @ 10:58 by Jordan Pacheco MD) Abnormal computerized axial tomography of chest Anxiety and depression Arrhythmia Bilateral lower extremity edema Bronchopulmonary aspergillosis Cavitary lesion of lung Chronic respiratory failure with hypoxia COPD (chronic obstructive pulmonary disease) COPD mixed type Dyspnea on exertion Family history of coronary artery disease Fungal pneumonia ILD (interstitial lung disease) Lung abscess Pulmonary emphysema Smoking greater than 30 pack years Tobacco abuse Surgical History (Updated 09/20/23 @ 23:13 by Adamaris Katz RN) H/O thyroidectomy History of knee surgery Family History Other Cancer Diabetes Social History Smoking Status: Current every day smoker tobacco type: cigarettes packs per day: 2 alcohol intake: never substance use type: denies use current occupational status: unemployed and retired Travel in the last 8 weeks: None Review of Systems Review of Systems Review of systems:: pertinent systems reviewed and negative unless documented below Meds Home Medications and Allergies Home Medications Medication Instructions Recorded Confirmed Type gabapentin 100 mg capsule 200 mg PO TID Pain #90 caps 07/03/23 09/21/23 Rx albuterol sulfate 90 mcg/actuation 2 puff inhalation Q4HP PRN 09/21/23 09/21/23 History aerosol inhaler (Ventolin HFA) Shortness Of Breath Or Wheezing alendronate 70 mg tablet 70 mg PO WEEKLY Bone Health 09/21/23 09/21/23 History amitriptyline 25 mg tablet 25 mg PO HS Mood 09/21/23 09/21/23 History budesonide-formoterol HFA 160 2 puff inhalation BID Breathing 09/21/23 09/21/23 History mcg-4.5 mcg/actuation aerosol Problems inhaler (Symbicort) buspirone 10 mg tablet 10 mg PO TID Anxiety 09/21/23 09/21/23 History bjhobfjium-fhccijcrembdq-lxqsojns 1 cap PO TIDP PRN headache 09/21/23 09/21/23 History 50 mg-300 mg-40 mg capsule (Fioricet) diazepam 10 mg tablet 10 mg PO HSP PRN Insomnia 09/21/23 09/21/23 History fluticasone fur. 200 mcg-umeclid 1 inh inhalation DAILY Breathing 09/21/23 09/21/23 History 62.5 mcg-vilant 25 mcg Problems inhalat.powder (Trelegy Ellipta) furosemide 20 mg tablet 20 mg PO DAILY Fluid 09/21/23 09/21/23 History ipratropium 0.5 mg-albuterol 3 mg 3 ml inhalation Q6HP PRN shortness 09/21/23 09/21/23 History (2.5 mg base)/3 mL nebulization of breath or wheezing soln metoprolol succinate 25 mg 25 mg PO DAILY High Blood Pressure 09/21/23 09/21/23 History tablet,extended release 24 hr mirtazapine 15 mg tablet (Remeron) 15 mg PO HS Mood 09/21/23 09/21/23 History potassium chloride 10 mEq 10 meq PO DAILY 09/21/23 09/21/23 History tablet,extended release prochlorperazine maleate 10 mg 10 mg PO BIDP PRN Nausea And 09/21/23 09/21/23 History tablet Vomiting tiotropium bromide 2.5 2 puff inhalation DAILY Breathing 09/21/23 09/21/23 History mcg/actuation mist for inhalation Problems (Spiriva Respimat) New Prescriptions to Start Prescriptions: Allergies Allergy/AdvReac Type Severity Reaction Status Date / Time codeine Allergy Verified 09/08/23 08:52 Penicillins Allergy Verified 09/08/23 08:52 lithium AdvReac Unknown Verified 09/08/23 08:52 Exam Data for Last 24 hours Vital signs and Labs for Last 24 Hours: Temp Pulse Resp BP Pulse Ox O2 Del Method O2 Flow Rate 97.9 F 95 H 31 H 100/67 L 97 Nasal Cannula 3 09/20/23 17:46 09/20/23 17:46 09/20/23 17:46 09/20/23 17:46 09/20/23 17:46 09/20/23 17:46 09/20/23 17:46 Laboratory Results - last 24 hr 09/20/23 17:55: SARS-CoV-2 (PCR) Not detected, Influenza A Untype (PCR) Not detected, Influenza Type B (PCR) Not detected 09/20/23 18:05: WBC 18.0 H, RBC 4.42, Hgb 13.4, Hct 40.2, MCV 90.9, MCH 30.2, MCHC 33.2, RDW 14.8, Plt Count 229, MPV 7.8, Neut % (Auto) 80.6 H, Lymph % (Auto) 15.9, Bailey % (Auto) 2.8, Eos % (Auto) 0.1, Baso % (Auto) 0.5, Neut # (Auto) 14.5 H, Lymph # (Auto) 2.9, Bailey # (Auto) 0.5, Eos # (Auto) 0.0, Baso # (Auto) 0.1, Total Counted 100, Neutrophils % (Manual) 75, Lymphocytes % (Manual) 23, Monocytes % (Manual) 2, Platelet Estimate Normal, Hypochromasia 1+, Sodium 135 L, Potassium 2.7 L*, Chloride 82 L, Carbon Dioxide 47 H*, Anion Gap 8.7, BUN 9, Creatinine 1.00, Estimated Creat Clear 43, Estimated GFR 55 L, Est GFR ( Amer) 67, Glucose 107 H, Lactate 2.5 H, Calcium 8.0 L, Phosphorus 3.1, Magnesium 1.5 L, Total Bilirubin 0.6, AST 53 H, ALT 30, Alkaline Phosphatase 95, Troponin I 0.02, Total Protein 6.8, Albumin 3.2 L, Globulin 3.6 H, Albumin/Globulin Ratio 0.9 L 09/20/23 18:06: Urine Color Yellow, Urine Appearance Clear, Urine pH 6.0, Ur Specific Mcintosh 1.025, Urine Protein 1+, Urine Glucose (UA) Negative, Urine Ketones Negative, Urine Blood Trace-i, Urine Nitrate Negative, Urine Bilirubin Negative, Urine Urobilinogen 0.2, Ur Leukocyte Esterase Negative, Urine RBC Occasional, Urine WBC 3-5, Ur Squamous Epith Cells 3-5, Urine Bacteria Trace, Hyaline Casts Occasional I & O for Last 24 hours: Intake & Output 09/17/23 09/18/23 09/19/23 09/20/23 23:59 23:59 23:59 23:59 Weight 49.895 kg Constitutional Constitutional: cachectic, chronically ill appearing and cooperative *Routine HEENT Exam Head: Present normocephalic and atraumatic Eye: Present EOMI, PERRL and normal accommodation ENT: Present mucous membranes dry *Routine Neck Exam Neck: Present supple, full ROM and trachea midline *Routine Respiratory Exam Respiratory: Present decreased breath sounds, prolonged expiratory phase, wheezes, normal respiratory effort and symmetric chest movement *Routine Cardiovascular Exam Cardiovascular: Present RRR, Normal S1, Normal S2 and tachycardia *Routine Abdominal Exam Abdominal: Present soft and normoactive bowel sounds; Absent organomegaly *Routine Rectal Exam Rectal:: deferred *Routine Genitalia Exam Genitalia:: deferred *Routine Extremities Exam Extremities: Present clubbing, edema, full ROM and pulses intact; Absent cyanosis *Routine Skin Exam Skin: Present intact, dry, warm and rash *Routine Neurological Exam Neurological: Present alert, oriented X3, normal reflexes, moving all extremities and normal speech Routine Psychiatric Exam Psychiatric: Present normal thought process, cooperative and good judgment H&P: Result Imaging and Cardiology EKG: Status: image reviewed by me and Preliminary report Assessment and Plan *Assessment and plan (1) Hypokalemia: Status: Acute Category: Medical Code(s): E87.6 - Hypokalemia (2) Diarrhea: Status: Acute Qualifiers: Diarrhea type: unspecified type Qualified Code(s): R19.7 - Diarrhea, unspecified Category: Medical Code(s): R19.7 - Diarrhea, unspecified (3) Generalized weakness: Status: Acute Category: Medical Code(s): R53.1 - Weakness (4) Dehydration, moderate: Status: Acute Category: Medical Code(s): E86.0 - Dehydration (5) COPD mixed type: Status: Chronic Category: Medical Code(s): J44.9 - Chronic obstructive pulmonary disease, unspecified (6) Smoking greater than 30 pack years: Status: Chronic Category: Social Hx Code(s): F17.210 - Nicotine dependence, cigarettes, uncomplicated (7) Pulmonary cachexia due to COPD: Status: Acute Category: Medical Code(s): J44.9 - Chronic obstructive pulmonary disease, unspecified; R64 - Cachexia Plan 67-year-old female with extensive PMHx, including but not limited to COPD, with cachexia, smoker, ILD, Afib, of presented today c/o weakness, secondary to diarrhea. Patient arrived to the ER with an empty oxygen tank. Supposed to be on 2L . Dehydrated. Labs showed severe hypokalemia. CO2 was elevated. As well as lactic acid. Patient started on IV fluids. Magnesium and potassium being replaced. ER called for admission. Discussed findings with the provider. In the setting of chronic diarrhea and previous antibiotic regimen, C. difficile colitis concern has been raised. Blood culture was taking diarrhea panel ordered .Due to was revealed lesions in the electrolyte and potential results complication patient was admitted for further treatment and management. Plan as follow: -Severe hypokalemia, likely secondary to chronic diarrhea: To rule out C. difficile colitis. Or any other infectious diarrhea. Patient be on antibiotics for several days prior to admission. \ Admit patient for medical services. Dispo MedSurg Continue IV fluid hydration. Normal saline at 50. Magnesium replaced at ER Potassium ordered x 3 Patient on current potassium pills. Resumed Repeat CMP in the morning. Watch for other electrolyte imbalance director of instructional technology Diarrhea panel ordered. Started on vancomycin p.o. CBC. Ordered C. difficile toxin ordered -Generalized weakness. Likely secondary to dehydration and hypokalemia: Continue plan as above Functional decline: Suspected protein calorie malnutrition versus pulmonary COPD PT/OT to eval and treat supportive care. supplemental house shake -History of COPD, pulmonary aspergillosis,ILD: Elevated CO2 on admission. Monitor for O2 saturation Oxygen 2 L continuously mask cannula douneb q6h Resume home nebulizer home regimen History of tobacco dependency: Nicotine patch as needed. Lovenox for DVT prophylaxis. On Protonix for GI bleed protection and GERD Full code Rounded on patient after nurse practitioner. Personally examined and interviewed patient. Agree with exam findings and care plan as documented.
--- NOTE | 2023-09-20 20:17 | PC.NURSE ---
report called to Adamaris PALMER
[2023-09-20 20:26] VITALS: BP 100/63; PULSE 90; RESP 20; TEMP 36.6; O2SAT 96
[2023-09-20 20:31] VITALS: BP 100/63; RESP 26; O2SAT 97
--- NOTE | 2023-09-20 21:03 | PC.NURSE ---
called lab, spoke with So who stated they only had one set of cultures. Notified receiving nurse they needed 1 additional set.
[2023-09-20 21:56] VITALS: BP 118/71; PULSE 91; RESP 28; TEMP 37.8; O2SAT 99; BMI 17.7
[2023-09-20] MEDS: PANTOPRAZOLE 40MG TABLET 40 MG PO (22:03)
[2023-09-20 22:15] LABS: Reflex Lactic Add Lactic Reflex
[2023-09-20 22:34] LABS: Lactic Acid Follow Up (RFLX 1) 1.9 mmol/L (0.7-2.1)
[2023-09-20] MEDS: 0.9 % SODIUM CHLORIDE 1000ML 1,000 ML 50 ML IV (22:48)
[2023-09-20] MEDS: MAGNESIUM SULFATE IN WATER 2 GM/50 ML PIGGYBACK IV (22:48)
[2023-09-20 23:00] VITALS: O2SAT 97
[2023-09-20 23:19] LABS: Troponin I 0.02 ng/ml (0.00-0.034)
[2023-09-21] VITALS (13 sets, daily range): BP systolic 72–127; BP diastolic 44–67; PULSE 84–113; RESP 16–24; TEMP 36.6–36.8; O2SAT 90–97; BMI 17.9
[2023-09-21] MEDS: VANCOMYCIN HCL 50MG/ML 150ML KIT 125 MG PO ×5 (00:47→21:03)
[2023-09-21 01:09] LABS: Troponin I 0.01 ng/ml (0.00-0.034)
[2023-09-21] MEDS: ALBUTEROL-HFA 90MCG/PUFF INHALER 8GM 1 PUFF IH (04:51)
[2023-09-21] MEDS: IPRATROPIUM/ALBUTEROL 3 ML NEB IH ×4 (05:52→22:14)
[2023-09-21 06:26] LABS: Basophils % 0.2 % (0.1-2.0); Eosinophils % 0.1 % (0.1-12.0); Hematocrit 38.3 % (37.0-47.0); Hemoglobin 12.5 g/dL (12.2-16.2); Lymphocytes # 2.8 K/mm3 (0.7-4.5); Lymphocytes % 14.4 % (10-50); Mean Corpuscular HGB Conc 32.7 g/dL (31.8-35.4); Mean Corpuscular Hemoglobin 29.9 pg (27.0-31.2); Mean Corpuscular Volume 91.5 fl (81-99); Mean Platelet Volume 7.9 fl (7.4-10.4); Monocytes # 0.6 K/mm3 (0.1-1.0); Monocytes % 2.9 % (1.7-9.3); Neutrophils # 15.9 K/mm3 (1.8-7.8); Neutrophils % 82.5 % (37.0-80.0); Platelet Count 214 K/mm3 (142-424); Red Blood Count 4.18 M/mm3 (4.20-5.40); Red Cell Distribution Width 14.8 % (11.5-17.5); White Blood Count 19.3 K/mm3 (4.8-10.8)
[2023-09-21 06:38] LABS: Alanine Aminotransferase 21 U/L (12-78); Albumin Level 2.9 g/dl (3.5-5.0); Albumin/Globulin Ratio 0.9 (1.1-1.8); Alkaline Phosphatase 86 U/L (38-126); Aspartate Amino Transferase 41 U/L (14-36); Bilirubin,Total 0.6 mg/dl (0.2-1.3); Blood Urea Nitrogen 6 mg/dl (7-17); Chloride 90 mmol/L (98-107); Creatinine Clearance Estimated 40 mL/min (50-200); Estimated Glomerular Filt Rate 72 ml/min (>60); GFR (African American) 87 ML/MIN (>60); Globulin 3.2 g/dL (1.3-3.2); Glucose 92 mg/dl (74-100); Magnesium 2.3 mg/dl (1.6-2.3); Potassium 3.1 mmoL/L (3.5-5.1); Sodium 136 mmol/L (136-145); Total Protein,Serum 6.1 g/dl (6.3-8.2)
[2023-09-21 06:40] LABS: MANUAL DIFFERENTIAL MANUAL DIFFERENTIAL (MANUAL DIFF)
[2023-09-21 06:45] LABS: Anion Gap 10.1 mEq/L (5-15); Carbon Dioxide 39 mmol/L (22.0-30.0)
--- NOTE | 2023-09-21 07:43 | HMH.PHAINT1 ---
Pharmacy Intervention Comments: MEDICATION RECONCILIATION COMPLETED ON PATIENT USING EXTERNAL FILL HISTORY FROM PHARMACY. -EDDI BARRIOS, BRITD
[2023-09-21 07:52] LABS: Lymphocytes % 16 % (10-50); Monocytes % 5 % (2-9); Neutrophils % 75 % (42-76); Total Cells Counted 100
[2023-09-21 07:55] LABS: Anisocytosis 1+; Platelet Estimate Normal; Rouleaux 1+
[2023-09-21 07:56] LABS: Hypochromasia 1+
--- NOTE | 2023-09-21 08:33 | PC.NURSE ---
pt stating at 99 on room air
--- NOTE | 2023-09-21 08:38 | PC.NURSE ---
Pt's O2 ON RA Is 74%. states she wears 02-5L AT HOME.
[2023-09-21] MEDS: PANTOPRAZOLE 40MG TABLET 40 MG PO (09:28)
[2023-09-21] MEDS: BUSPIRONE HCL 10 MG TABLET PO ×3 (09:28→21:05)
[2023-09-21] MEDS: LACTOBACILLUS PROBIOTIC COMB CAPSULE 1 CAP PO (09:28)
[2023-09-21] MEDS: METOPROLOL SUCCINATE XL 25MG TABLET 25 MG PO (09:28)
[2023-09-21] MEDS: POTASSIUM CHLORIDE 20MEQ TAB 40 MEQ PO ×2 (09:28→21:05)
--- NOTE | 2023-09-21 09:35 | SW/DCPLANNER ---
Addendum entered by Caprice Milford 09/28/23 08:53: Updated patient information has been faxed to [facility] tran/ Taya Bowser. Addendum entered by Caprice Milford 09/25/23 13:10: Per A.D. marc/ Taya Bowser patient has been admitted as Hospice inpatient as of 11:45AM 09/25/23. Addendum entered by Caprice Milford 09/21/23 13:09: Patient is agreeable to home health services w/ [facility] at time of discharge. Addendum entered by Caprice Milford 09/21/23 12:46: I spoke w/ patient's son (Abdi) this afternoon. Abdi stated that patient will have a sitter w/ her at home through [facility], family checks on her often and they are not interested in placement at this time. I will speak w/ patient about home health services prior to discharge. Discharge date is unknown at this time. Original Note: I spoke w/ patient regarding plans once medically stable for discharge. PT/OT evaluated patient and recommended SNF level of care. Patient stated that she resides at home alone, her children assist w/ her care at home and she does wear home O2. Patient is adamant to return home once medically stable for discharge. Patient is NOT interested in SNF level of care. I did ask patient if I could call and discuss discharge plans w/ her son (Rl) and she is agreeable. I attempted to contact Rl: no answer at this time. I will continue to get in contact w/ patient's family. Discharge date is unknown at this time.
--- NOTE | 2023-09-21 09:47 | HMH.OTEV ---
OT Inpatient Evaluation Rehab OT IP Evaluation Start: 09/21/23 02:40 Freq: ONCE Status: Active Protocol: Document 09/21/23 09:41 EDYTA (Rec: 09/21/23 09:47 JOHANNEDES MOINES [id number]) Rehab OT IP Assessment Subjective History Pt oriented x 3 on arrival. Pt agreeable to engage in therapy evaluation. Pt admitted on 09/20/23 due to dehydration and hypokalemia. History and physical report: This is a 67-year-old female with extensive PMHx, including but not limited to COPD, with cachexia, smoker, ILD, Afib, of presented today c/o weakness, secondary to diarrhea. Stated she been on antibiotic (levofloxacin) for cellulitis of the lower extremities, and developed a persistent diarrhea over the last 2 weeks . She also c/o for over the last several days she has had profound weakness with declining in her functional status. Requiring help from her son. States she is very generally weak at the moment. No focal weakness. No significant abdominal pain chest pain shortness of breath fevers chills etc. Subjective Don't make me do much. Pt reports prior to being in the hospital, pt lived at home alone. Pt claims normally she is independent with all ADLs and IADLs. Family does assist with heavier household tasks and grocery shopping. Pt uses a walker at all times and is on oxygen 16/03. Pt claims she still drives. Pt has steps to get in her home she must have assitance getting up and down. Objective Patient Orientation Person,Place,Birthday Right Upper Extremity Gross ROM Min Limitation <25% Left Upper Extremity Gross ROM Min Limitation <25% Shoulder ROM Limitations Muscle Weakness Elbow ROM Limitations Muscle Weakness Wrist Limitations of Range of Motion Muscle Weakness Bed Mobility bed mobility-scooting,bed mobility - supine/sit Assist Level Minimal x 1 (25% assist) Transfer Training Sit/Stand Transfer Assist Level Minimal x 1 (25% assist) Lower Body Dressing Ability Maximum Assistance Rehab OT IP prob,goals,plan Problems Date of Evaluation: 09/21/23 OT IP Problems Bed Mobility,Transfers,Balance ,Self care,Safety Rehab Potential Rehab Potential Good Equipment Needs Assistive Devices Rolling / Wheeled Walker Plan OT intervention Plan Bed Mobility,Transfers,Balance ,Self care,Safety,Therapeutic Exercise OT Plan Frequency Daily Duration LOS Discharge Goals Bed Mobility Ability Standby Assistance Sit to Stand Chair Transfer Ability Contact Guard/Hand Hold Chair Transfer Ability Contact Guard/Hand Hold Chair Transfer Technique Sit to/from Ambulatory Chair Transfer Assistive Devices Rolling Walker Feeding Ability Assist with Tray Set Up Lower Body Dressing Ability Minimal Assistance Upper Body Dressing Ability Standby Assistance Bathing Ability Minimal Assistance Performing Toilet Hygiene Ability Minimal Assistance Overall Commode/Toilet Transfer Ability Contact Guard Commode/Toilet Transfer Technique Sit to/from Ambulatory Commode/Toilet Transfer Assistive Raised Toilet Seat,Grab Bars Devices Oral Care Assist Standby Assistance Decrease in Endurance Yes Discharge Plan OT Discharge Plan Pt will continues to be seen for OT services while at [facility]. Pt would benefit most from short term rehab at [facility]. However, pt appears to be reluctant to do this. Pt could return home with 24/7 assist from family and HHOT evaluation. Continued skilled therapy is important for patient to reach PLOF. Eval Complexity Eval Charge Codes 55749 - Moderate Complexity PHYSICIAN CERTIFICATION: I certify the specified therapy services for Christelle Yuan are required, authorized, and reviewed every 30 days.
--- NOTE | 2023-09-21 10:06 | HMH.PTEV ---
Physical Therapy Evaluation Rehab PT IP Evaluation Start: 09/21/23 02:40 Freq: ONCE Status: Active Protocol: Document 09/21/23 09:57 JAY (Rec: 09/21/23 10:03 JAY [id number]) Subjective/History History History Per history and physical: This is a 67-year-old female with extensive PMHx, including but not limited to COPD, with cachexia, smoker, ILD, Afib, of presented today c/o weakness, secondary to diarrhea. Stated she been on antibiotic (levofloxacin) for cellulitis of the lower extremities, and developed a persistent diarrhea over the last 2 weeks . She also c/o for over the last several days she has had profound weakness with declining in her functional status. Requiring help from her son. States she is very generally weak at the moment. No focal weakness. No significant abdominal pain chest pain shortness of breath fevers chills etc. Subjective Subjective Pt agreeable to PT evaluation. Pt reports she lives by herself independently using a RW. Pt reports there are a few steps to enter her home but requires assistance from children to negotiate steps. Pt driving and using supplemental O2 prior to admission. New diagnosis of cancer in past 12 No months? Rehab PT IP Eval Objective Appearance Patient Behavior Appropriate,Cooperative Patient Orientation Person,Place,Birthday Speech Pattern Clear Ambulation Patient Able to Ambulate No Transfers Bed Transfer Ability Moderate x 1 (50% assist) Sit to Stand Bed Transfer Ability Minimal x 1 (25% assist) Rehab PT IP prob,goals,plan Problems Date of Evaluation: 09/21/23 PT IP Problems Bed Mobility,Transfers,Gait, Balance,Self care,Safety Rehab Potential Rehab Potential Good Equipment Needs Assistive Devices Rolling / Wheeled Walker Plan PT Intervention Plan Bed Mobility,Transfers,Gait, Balance,Self care,Safety, Therapeutic Exercise Other Intervention Plan 1-2 x daily PT Plan Frequency Daily Discharge Goals Bed Transfer Ability Minimal x 1 (25% assist) Sit to Stand Chair Transfer Ability Contact Guard/Hand Hold Ambulation Assistive Device Rolling Walker Ambulation Distance (feet) 10 Discharge Plan PT Discharge Plan Recommending pt d/c to short- term rehabilitation placement as pt is not safe to return home alone at this time. Pt would benefit from skilled physical therapy while at [facility] to address deficits and decrease further functional decline. Eval Complexity Eval Charge Codes 77952 - High Complexity PHYSICIAN CERTIFICATION: I certify the specified therapy services for Christelle Lissy are required, authorized, and reviewed every 30 days.
--- NOTE | 2023-09-21 10:56 | P.PN_ITS ---
Subjective *Date: 09/21/23 *Time: 10:56 Interval history: On 5 L nasal cannula this morning. Patient cachectic. Afebrile overnight. No diarrhea since admission. Adamant she wants to go home when she is better. Denies any chest pain. Still feels quite weak. Medical Exam Vital signs and Labs for Last 24 Hours: Vital Signs Temp Pulse Pulse Resp BP BP Pulse Ox 09/21/23 08:00 90 09/21/23 09:42 09/21/23 09:00 09/21/23 07:39 97.8 F 95 H 16 101/52 L 94 L 09/21/23 07:00 09/21/23 05:00 09/21/23 05:52 90 09/21/23 05:52 92 H 09/21/23 04:20 88 09/21/23 04:00 97.8 F 85 24 115/60 95 09/21/23 00:30 84 09/21/23 03:00 09/21/23 00:00 98.2 F 86 22 127/67 95 09/21/23 01:00 09/20/23 23:00 09/20/23 21:00 09/20/23 23:00 97 09/20/23 21:56 100.1 F H 91 H 28 H 118/71 99 09/20/23 20:31 26 H 100/63 L 97 09/20/23 18:07 95 H 26 H 100/67 L 96 09/20/23 20:26 98 F 90 20 100/63 L 09/20/23 17:46 97.9 F 95 H 31 H 100/67 L 97 O2 Del Method O2 Flow Rate 09/21/23 08:00 09/21/23 09:42 Nasal Cannula 3 09/21/23 09:00 Nasal Cannula 3 09/21/23 07:39 Nasal Cannula 4 09/21/23 07:00 Nasal Cannula 5 09/21/23 05:00 Nasal Cannula 5 09/21/23 05:52 09/21/23 05:52 09/21/23 04:20 09/21/23 04:00 Nasal Cannula 4 09/21/23 00:30 09/21/23 03:00 Nasal Cannula 4 09/21/23 00:00 Nasal Cannula 5 09/21/23 01:00 Nasal Cannula 5 09/20/23 23:00 Nasal Cannula 5 09/20/23 21:00 Nasal Cannula 5 09/20/23 23:00 Nasal Cannula 5 09/20/23 21:56 5 09/20/23 20:31 09/20/23 18:07 09/20/23 20:26 Nasal Cannula 2.5 09/20/23 17:46 Nasal Cannula 3 Intake and Output 09/20/23 09/21/23 09/21/23 23:59 07:59 15:59 Intake Total 240 / 240 Output Total 0 / 0 Balance 240 / 240 Intake: Intake, Oral Amount 240 / 240 Output: Output, Urine Amount 0 / 0 Other: Number of Unmeasured Voids 1 Weight 45.388 kg 45.841 kg Patient Weight 09/21/23 23:59 Weight 45.841 kg Laboratory Results - last 24 hr 09/20/23 17:55: SARS-CoV-2 (PCR) Not detected, Influenza A Untype (PCR) Not detected, Influenza Type B (PCR) Not detected 09/20/23 18:05: WBC 18.0 H, RBC 4.42, Hgb 13.4, Hct 40.2, MCV 90.9, MCH 30.2, MCHC 33.2, RDW 14.8, Plt Count 229, MPV 7.8, Neut % (Auto) 80.6 H, Lymph % (Auto) 15.9, [place] % (Auto) 2.8, Eos % (Auto) 0.1, Baso % (Auto) 0.5, Neut # (Auto) 14.5 H, Lymph # (Auto) 2.9, [place] # (Auto) 0.5, Eos # (Auto) 0.0, Baso # (Auto) 0.1, Total Counted 100, Neutrophils % (Manual) 75, Lymphocytes % (Manual) 23, Monocytes % (Manual) 2, Platelet Estimate Normal, Hypochromasia 1+, Sodium 135 L, Potassium 2.7 L*, Chloride 82 L, Carbon Dioxide 47 H*, Anion Gap 8.7, BUN 9, Creatinine 1.00, Estimated Creat Clear 43, Estimated GFR 55 L, Est GFR ( Amer) 67, Glucose 107 H, Lactate 2.5 H, Calcium 8.0 L, Phosphorus 3.1, Magnesium 1.5 L, Total Bilirubin 0.6, AST 53 H, ALT 30, Alkaline Phosphatase 95, Troponin I 0.02, Total Protein 6.8, Albumin 3.2 L, Globulin 3.6 H, Albumin/Globulin Ratio 0.9 L 09/20/23 18:06: Urine Color Yellow, Urine Appearance Clear, Urine pH 6.0, Ur Specific [place] 1.025, Urine Protein 1+, Urine Glucose (UA) Negative, Urine Ketones Negative, Urine Blood Trace-i, Urine Nitrate Negative, Urine Bilirubin Negative, Urine Urobilinogen 0.2, Ur Leukocyte Esterase Negative, Urine RBC Occasional, Urine WBC 3-5, Ur Squamous Epith Cells 3-5, Urine Bacteria Trace, Hyaline Casts Occasional 09/20/23 22:00: Lactate 1.9, Troponin I 0.02 09/21/23 00:35: Troponin I 0.01 09/21/23 05:35: WBC 19.3 H, RBC 4.18 L, Hgb 12.5, Hct 38.3, MCV 91.5, MCH 29.9, MCHC 32.7, RDW 14.8, Plt Count 214, MPV 7.9, Neut % (Auto) 82.5 H, Lymph % (Auto) 14.4, [place] % (Auto) 2.9, Eos % (Auto) 0.1, Baso % (Auto) 0.2, Neut # (Auto) 15.9 H, Lymph # (Auto) 2.8, [place] # (Auto) 0.6, Eos # (Auto) 0.0, Baso # (Auto) 0.0, Total Counted 100, Neutrophils % (Manual) 75, Band Neutrophils % 4.0, Lymphocytes % (Manual) 16, Monocytes % (Manual) 5, Platelet Estimate Normal, Hypochromasia 1+, Anisocytosis 1+, Rouleaux 1+, Sodium 136, Potassium 3.1 L, Chloride 90 L, Carbon Dioxide 39 H, Anion Gap 10.1, BUN 6 L D, Creatinine 0.80, Estimated Creat Clear 40, Estimated GFR 72, Est GFR ( Amer) 87 D, Glucose 92, Calcium 8.0 L, Magnesium 2.3 D, Total Bilirubin 0.6, AST 41 H, ALT 21 D, Alkaline Phosphatase 86, Total Protein 6.1 L, Albumin 2.9 L, Globulin 3.2, Albumin/Globulin Ratio 0.9 L I & O for Labs for Last 24 Hours: Intake & Output 09/18/23 09/19/23 09/20/23 09/21/23 23:59 23:59 23:59 23:59 Intake Total 240 / 240 Output Total 0 / 0 Balance 240 / 240 Weight 45.388 kg 45.841 kg Constitutional: Present mild distress, cachectic and chronically ill appearing Head: Present atraumatic and normocephalic ENT: Present normal exam Comment:: Bitemporal wasting Respiratory: Present prolonged expiratory phase and wheezes; Absent rhonchi or crackles Cardiac: Present Reg Rate and Rhythm GI: Present soft, tenderness (Nonfocal) and normal bowel sounds; Absent distention Extremities: Present normal inspection and full ROM Comment:: Sarcopenia Skin: Present intact; Absent erythema Neuro: Present Grossly Intact, alert, awake, oriented x 3 and moves all extremities Assessment and Plan *Assessment and plan (1) Hypokalemia: Status: Acute Category: Medical Code(s): E87.6 - Hypokalemia (2) Diarrhea: Status: Acute Qualifiers: Diarrhea type: unspecified type Qualified Code(s): R19.7 - Diarrhea, unspecified Category: Medical Code(s): R19.7 - Diarrhea, unspecified (3) Generalized weakness: Status: Acute Category: Medical Code(s): R53.1 - Weakness (4) Dehydration, moderate: Status: Acute Category: Medical Code(s): E86.0 - Dehydration (5) COPD mixed type: Status: Chronic Category: Medical Code(s): J44.9 - Chronic obstructive pulmonary disease, unspecified (6) Smoking greater than 30 pack years: Status: Chronic Category: Social Hx Code(s): F17.210 - Nicotine dependence, cigarettes, uncomplicated (7) Pulmonary cachexia due to COPD: Status: Acute Category: Medical Code(s): J44.9 - Chronic obstructive pulmonary disease, unspecified; R64 - Cachexia (8) Severe protein-calorie malnutrition: Status: Acute Category: Medical Code(s): E43 - Unspecified severe protein-calorie malnutrition Plan 67-year-old female with extensive PMHx, including but not limited to COPD, with cachexia, smoker, ILD, Afib, of presented today c/o weakness, secondary to diarrhea. Patient arrived to the ER with an empty oxygen tank. Supposed to be on 2L . Dehydrated. Labs showed severe hypokalemia. CO2 was elevated. As well as lactic acid. Patient started on IV fluids. Magnesium and potassium being replaced. ER called for admission. Discussed findings with the provider. In the setting of chronic diarrhea and previous antibiotic regimen, C. difficile colitis concern has been raised. Blood culture was taking diarrhea panel ordered. Patient continues to require inpatient management. Plan as follows: -Severe hypokalemia, likely secondary to chronic diarrhea: -Suspected C. difficile colitis -Generalized weakness -Severe protein calorie malnutrition Continue oral vancomycin 125 mg p.o. 4 times a day. Stool panel pending. C. difficile toxin pending. continue IV fluid hydration. Normal saline at 50. Magnesium replaced at ER, magnesium 2.3 this morning. Repeat CBC, CMP, magnesium ordered for the morning. Increase potassium supplementation to 40 mEq twice daily. Potassium 3.1 this morning. PT/OT to eval and treat Nutrition consulted, supplementation with meals -History of COPD, pulmonary aspergillosis,ILD: Elevated CO2 on admission. Monitor for O2 saturation O2 sat goal greater than 90%. Currently on 5 L nasal cannula oxygen douneb increased to every 4 hours scheduled Resume home nebulizer home regimen History of tobacco dependency:Nicotine patch as needed. Lovenox for DVT prophylaxis On Protonix for GI bleed protection and GERD Full code
--- NOTE | 2023-09-21 12:33 | PC.NURSE ---
RT called for breathing treatment.
[2023-09-21] MEDS: 0.9 % SODIUM CHLORIDE 1000ML 1,000 ML 50 ML IV (18:16)
[2023-09-21] MEDS: MIRTAZAPINE 15 MG TABLET PO (21:05)
[2023-09-21] MEDS: ACETAMINOPHEN 325MG TAB 650 MG PO (21:05)
[2023-09-22] VITALS (17 sets, daily range): BP systolic 74–141; BP diastolic 49–93; PULSE 62–112; RESP 16–28; TEMP 36.2–38.9; O2SAT 91–100; BMI 18.8
--- NOTE | 2023-09-22 00:11 | PC.NURSE ---
[employer] notified in house PA of low Blood Pressure of 74/44. New orders to give 500cc Bolus of 0.9% NS and then increase IV Fluids from 50mL/hr to 100mL/hr. [employer] notified patient and she verbalized understanding. Patient is alert and orient X4. Voiced to marine underwriter that she just feels a little tired . Will continue to monitor.
[2023-09-22] MEDS: IPRATROPIUM/ALBUTEROL 3 ML NEB IH ×5 (02:23→21:36)
[2023-09-22] MEDS: 0.9 % SODIUM CHLORIDE 1000ML 1,000 ML 100 ML IV ×2 (02:44→17:04)
[2023-09-22] MEDS: SODIUM CHLORIDE 0.9% 500ML BAG 500 ML IV (02:44)
--- NOTE | 2023-09-22 05:27 | PC.NURSE ---
Patient alert and orient X4. Patient rested in bed with eyes closed intermittently this shift. Patient denies any pain or discomfort. Patient tolerated the 500mL bolus of 0.9% NaCl and the increase in fluids from 50mL/hr of 0.9% NaCl to 100mL/hr. BP is 96/60
[2023-09-22] MEDS: FLUTICASONE/UMECLIDIN/VILANTER 200/62.5/25MCG INHALER 1 PUFF IH (06:03)
[2023-09-22] MEDS: TIOTROPIUM 18MCG/PUFF INHALER 1 CAP IH (06:03)
[2023-09-22 06:40] LABS: Basophils % 0.2 % (0.1-2.0); Eosinophils % 0.1 % (0.1-12.0); Hematocrit 34.7 % (37.0-47.0); Hemoglobin 11.1 g/dL (12.2-16.2); Lymphocytes # 1.5 K/mm3 (0.7-4.5); Mean Corpuscular HGB Conc 32.1 g/dL (31.8-35.4); Mean Corpuscular Hemoglobin 29.9 pg (27.0-31.2); Mean Corpuscular Volume 93.1 fl (81-99); Mean Platelet Volume 8.2 fl (7.4-10.4); Monocytes # 0.7 K/mm3 (0.1-1.0); Monocytes % 3.9 % (1.7-9.3); Neutrophils # 16.2 K/mm3 (1.8-7.8); Neutrophils % 87.8 % (37.0-80.0); Platelet Count 197 K/mm3 (142-424); Red Blood Count 3.72 M/mm3 (4.20-5.40); Red Cell Distribution Width 14.7 % (11.5-17.5); White Blood Count 18.4 K/mm3 (4.8-10.8)
[2023-09-22 06:43] LABS: Alanine Aminotransferase 17 U/L (12-78); Albumin Level 2.3 g/dl (3.5-5.0); Albumin/Globulin Ratio 0.9 (1.1-1.8); Alkaline Phosphatase 67 U/L (38-126); Aspartate Amino Transferase 30 U/L (14-36); Bilirubin,Total 0.5 mg/dl (0.2-1.3); Blood Urea Nitrogen 7 mg/dl (7-17); Calcium 7.6 mg/dl (8.4-10.2); Carbon Dioxide 38 mmol/L (22.0-30.0); Chloride 105 mmol/L (98-107); Creatinine Clearance Estimated 42 mL/min (50-200); Estimated Glomerular Filt Rate 83 ml/min (>60); GFR (African American) 101 ML/MIN (>60); Globulin 2.7 g/dL (1.3-3.2); Glucose 96 mg/dl (74-100); Sodium 141 mmol/L (136-145)
[2023-09-22 06:49] LABS: MANUAL DIFFERENTIAL MANUAL DIFFERENTIAL (MANUAL DIFF)
[2023-09-22] MEDS: LACTOBACILLUS PROBIOTIC COMB CAPSULE 1 CAP PO (08:16)
[2023-09-22] MEDS: PANTOPRAZOLE 40MG TABLET 40 MG PO (08:16)
[2023-09-22] MEDS: BUSPIRONE HCL 10 MG TABLET PO ×3 (08:16→20:10)
[2023-09-22] MEDS: METOPROLOL SUCCINATE XL 25MG TABLET 25 MG PO (08:17)
[2023-09-22] MEDS: POTASSIUM CHLORIDE 20MEQ TAB 40 MEQ PO ×2 (08:17→20:10)
[2023-09-22] MEDS: ENOXAPARIN 40MG/0.4ML SYRINGE 40 MG SQ (08:24)
[2023-09-22] MEDS: VANCOMYCIN HCL 50MG/ML 150ML KIT 125 MG PO ×4 (08:24→21:03)
[2023-09-22 08:54] LABS: Lymphocytes % 5 % (10-50); Monocytes % 4 % (2-9); Neutrophils % 87 % (42-76); Total Cells Counted 100
[2023-09-22 08:57] LABS: Anisocytosis 1+; Hypochromasia 1+; Platelet Estimate Normal
--- NOTE | 2023-09-22 09:14 | CT_ITS ---
FINAL REPORT TECHNIQUE: Axial images through the abdomen and pelvis were performed without contrast. This study was performed with techniques to keep radiation doses as low as reasonably achievable, (ALARA). Individualized dose reduction techniques using automated exposure control or adjustment of mA and/or kV according to the patient's size were employed. CLINICAL HISTORY: abd pain COMPARISON: 09/22/2023 FINDINGS: ABDOMEN: There is new airspace disease within the right lower lobe, probably pneumonia although given the mild nodularity, neoplasm is not entirely excluded. There is a new small right pleural effusion. Advanced emphysema is identified. The heart size is normal. Limited images of the liver are unremarkable. The gallbladder is contracted. The spleen is normal. No adrenal mass is identified. The aorta is normal in caliber. There is no significant free fluid or adenopathy. There is a 45 mm nodular mass in the lower pole of the right kidney, probably a cyst although not well characterized without contrast. There is no nephrolithiasis. There is no hydronephrosis. PELVIS: The appendix is normal. The bladder is distended. Pelvic bowel loops are unremarkable. There is no significant free fluid or adenopathy. IMPRESSION: No bowel obstruction or obvious intra-abdominal inflammatory changes. Distended bladder. Right lower lobe parenchymal opacity, favor pneumonia over neoplasm. Recommend [address] follow-up. Reviewed, Interpreted and Dictated by Triin Ortiz MD Transcribed by Angie Villegas Authenticated and [facility]
--- NOTE | 2023-09-22 16:43 | XR_ITS ---
PROCEDURE INFORMATION: Exam: XR Chest Exam date and time: 09/22/2023 5:11 PM Age: 67 years old Clinical indication: Cough; Additional info: Pna TECHNIQUE: Imaging protocol: Radiologic exam of the chest. Views: 1 view. COMPARISON: CR XR CHEST PORTABLE 12/01/2022 11:11 AM FINDINGS: Lungs: Interval development of right basilar interstitial and airspace opacities suggesting developing pneumonia. Questionable developing subtle similar changes in the left lung base. Biapical pleural-parenchymal scarring [id number]-left and emphysematous changes redemonstrated. Lungs are otherwise clear. Pleural spaces: Interval development of small left effusion. Heart/Mediastinum: Unremarkable. No cardiomegaly. Bones/joints: Unremarkable. IMPRESSION: 1. Developing bibasilar opacities [id number]-left suggesting developing pneumonia. Associated small left effusion. Advise follow-up to ensure resolution. 2. Emphysematous changes and biapical scarring.
--- NOTE | 2023-09-22 16:44 | P.PN_ITS ---
Subjective *Date: 09/22/23 *Time: 16:51 Interval history: Seen and examined at bedside. Patient appears cachectic, but not in distress, alert and awake Exam Data for Last 24 hours Vital signs and Labs for Last 24 Hours: Temp Pulse Resp BP Pulse Ox O2 Del Method O2 Flow Rate 97.2 F L 103 H 20 121/65 97 Nasal Cannula 5 09/22/23 15:30 09/22/23 15:30 09/22/23 15:30 09/22/23 15:30 09/22/23 15:30 09/22/23 15:30 09/22/23 15:30 Laboratory Results - last 24 hr 09/22/23 05:57: WBC 18.4 H, RBC 3.72 L, Hgb 11.1 L, Hct 34.7 L, MCV 93.1, MCH 29.9, MCHC 32.1, RDW 14.7, Plt Count 197, MPV 8.2, Neut % (Auto) 87.8 H, Lymph % (Auto) 8.0 L, [place] % (Auto) 3.9, Eos % (Auto) 0.1, Baso % (Auto) 0.2, Neut # (Auto) 16.2 H, Lymph # (Auto) 1.5, [place] # (Auto) 0.7, Eos # (Auto) 0.0, Baso # (Auto) 0.0, Total Counted 100, Neutrophils % (Manual) 87 H, Band Neutrophils % 4.0, Lymphocytes % (Manual) 5 L, Monocytes % (Manual) 4, Platelet Estimate Normal, Hypochromasia 1+, Anisocytosis 1+, Sodium 141, Potassium 4.0 D, Chloride 105, Carbon Dioxide 38 H, Anion Gap 2.0 L, BUN 7, Creatinine 0.70, Estimated Creat Clear 42, Estimated GFR 83, Est GFR ( Amer) 101, Glucose 96, Calcium 7.6 L, Magnesium 2.0 D, Total Bilirubin 0.5, AST 30 D, ALT 17, Alkaline Phosphatase 67, Total Protein 5.0 L, Albumin 2.3 L D, Globulin 2.7, Albumin/Globulin Ratio 0.9 L I & O for Last 24 hours: Intake & Output 09/19/23 09/20/23 09/21/23 09/22/23 23:59 23:59 23:59 23:59 Intake Total 1050 / 1360 2462 / 2462 Output Total 0 / 0 850 / 850 Balance 1050 / 1360 1612 / 1612 Weight 45.388 kg 45.84 kg 48.308 kg Constitutional Constitutional: no acute distress Comments: appears weak and frail *Routine HEENT Exam Head: Present normocephalic Eye: Present EOMI and PERRL ENT: Present mucous membranes moist *Routine Neck Exam Neck: Present supple; Absent lymphadenopathy *Routine Respiratory Exam Respiratory: Present CTA bilaterally *Routine Cardiovascular Exam Cardiovascular: Present RRR *Routine Abdominal Exam Abdominal: Present soft and normoactive bowel sounds; Absent tenderness *Routine Extremities Exam Extremities: Absent cyanosis, clubbing or edema *Routine Skin Exam Skin: Present warm; Absent rash *Routine Neurological Exam Neurological: Present alert and oriented X3 Assessment and Plan *Assessment and plan (1) Hypokalemia: Status: Acute Category: Medical Code(s): E87.6 - Hypokalemia (2) Diarrhea: Status: Acute Qualifiers: Diarrhea type: unspecified type Qualified Code(s): R19.7 - Diarrhea, unspecified Category: Medical Code(s): R19.7 - Diarrhea, unspecified (3) Generalized weakness: Status: Acute Category: Medical Code(s): R53.1 - Weakness (4) Dehydration, moderate: Status: Acute Category: Medical Code(s): E86.0 - Dehydration (5) COPD mixed type: Status: Chronic Category: Medical Code(s): J44.9 - Chronic obstructive pulmonary disease, unspecified (6) Smoking greater than 30 pack years: Status: Chronic Category: Social Hx Code(s): F17.210 - Nicotine dependence, cigarettes, uncomplicated (7) Pulmonary cachexia due to COPD: Status: Acute Category: Medical Code(s): J44.9 - Chronic obstructive pulmonary disease, unspecified; R64 - Cachexia (8) Severe protein-calorie malnutrition: Status: Acute Category: Medical Code(s): E43 - Unspecified severe protein-calorie malnutrition Plan 67-year-old female with extensive PMHx, including but not limited to COPD, with cachexia, smoker, ILD, Afib, of presented today c/o weakness, secondary to diarrhea. Patient arrived to the ER with an empty oxygen tank. Supposed to be on 2L . Dehydrated. Labs showed severe hypokalemia. CO2 was elevated. As well as lactic acid. Patient started on IV fluids. Magnesium and potassium being replaced. ER called for admission. Discussed findings with the provider. In the setting of chronic diarrhea and previous antibiotic regimen, C. difficile colitis concern has been raised. Blood culture was taking diarrhea panel ordered. Patient continues to require inpatient management. Plan as follows: -Severe hypokalemia, likely secondary to chronic diarrhea: - improved, no BM in past 2 days -Suspected C. difficile colitis -Generalized weakness -Severe protein calorie malnutrition Continue oral vancomycin 125 mg p.o. 4 times a day. Stool panel pending. C. difficile toxin pending. continue IV fluid hydration. Normal saline at 50. PT/OT to eval and treat - patient and family wishes to go to Home with Nutrition consulted, supplementation with meals Lung opacities on CT abd check CXR start empirical Abx with vanc and cefepime check PCT -History of COPD, pulmonary aspergillosis,ILD: Elevated CO2 on admission. Monitor for O2 saturation O2 sat goal greater than 90%. Currently on 5 L nasal cannula oxygen douneb increased to every 4 hours scheduled Resume home nebulizer home regimen History of tobacco dependency:Nicotine patch as needed. Lovenox for DVT prophylaxis On Protonix for GI bleed protection and GERD Full code
[2023-09-22] MEDS: CEFEPIME HCL 2 GM in 0.9 % SODIUM CHLORIDE 100 ML IV (17:04)
[2023-09-22 17:20] LABS: Procalcitonin 0.485 ng/mL (0.0-2.0)
[2023-09-22] MEDS: VANCOMYCIN HCL 1,000 MG in 0.9 % SODIUM CHLORIDE 250 ML 125 MG IV (18:11)
[2023-09-22] MEDS: ACETAMINOPHEN 325MG TAB 650 MG PO (18:55)
--- NOTE | 2023-09-22 19:02 | PC.NURSE ---
pt has a fever. nurse is aware. pt thermostat turned down, blankets removed and fan placed on and in the room. Nurse administered medicine (see MAR) pt situated in bed, bed alarm is set and call light is within reach.
[2023-09-22] MEDS: MIRTAZAPINE 15 MG TABLET PO (20:10)
[2023-09-22] MEDS: FUROSEMIDE 40MG/4ML VIAL 40 MG IV (20:10)
[2023-09-22] MEDS: NYSTATIN SUSP 500,000 UNITS/5ML UDC 500000 UNIT PO (21:03)
[2023-09-23] VITALS (14 sets, daily range): BP systolic 99–142; BP diastolic 64–89; PULSE 60–124; RESP 18–28; TEMP 36.4–37; O2SAT 92–99; BMI 18.8
[2023-09-23] MEDS: CEFEPIME HCL 2 GM in 0.9 % SODIUM CHLORIDE 100 ML IV ×3 (01:10→20:07)
[2023-09-23] MEDS: IPRATROPIUM/ALBUTEROL 3 ML NEB IH ×6 (01:31→21:24)
[2023-09-23] MEDS: TIOTROPIUM 18MCG/PUFF INHALER 1 CAP IH (06:02)
[2023-09-23] MEDS: FLUTICASONE/UMECLIDIN/VILANTER 200/62.5/25MCG INHALER 1 PUFF IH (06:02)
[2023-09-23 07:17] LABS: Alanine Aminotransferase 16 U/L (12-78); Albumin Level 2.6 g/dl (3.5-5.0); Albumin/Globulin Ratio 0.8 (1.1-1.8); Alkaline Phosphatase 84 U/L (38-126); Anion Gap 6.7 mEq/L (5-15); Aspartate Amino Transferase 27 U/L (14-36); Bilirubin,Total 0.8 mg/dl (0.2-1.3); Blood Urea Nitrogen 8 mg/dl (7-17); Calcium 8.1 mg/dl (8.4-10.2); Carbon Dioxide 33 mmol/L (22.0-30.0); Chloride 107 mmol/L (98-107); Creatinine Clearance Estimated 42 mL/min (50-200); Estimated Glomerular Filt Rate 83 ml/min (>60); GFR (African American) 101 ML/MIN (>60); Globulin 3.3 g/dL (1.3-3.2); Glucose 92 mg/dl (74-100); Potassium 4.7 mmoL/L (3.5-5.1); Sodium 142 mmol/L (136-145); Total Protein,Serum 5.9 g/dl (6.3-8.2)
--- NOTE | 2023-09-23 07:44 | EXP.PHA.CONS ---
Pharmacy Consult Date: 09/23/23 Time: 07:44 Referring provider: DR. GREENWOOD Reason for Consult:: VANCOMYCIN DOSING Allergies Allergy/AdvReac Type Severity Reaction Status Date / Time codeine Allergy Verified 09/08/23 08:52 Penicillins Allergy Verified 09/08/23 08:52 lithium AdvReac Unknown Verified 09/08/23 08:52 Home Medications Medication Instructions Recorded Confirmed Type gabapentin 100 mg capsule 200 mg PO TID Pain #90 caps 07/03/23 09/21/23 Rx albuterol sulfate 90 mcg/actuation 2 puff inhalation Q4HP PRN 09/21/23 09/21/23 History aerosol inhaler (Ventolin HFA) Shortness Of Breath Or Wheezing alendronate 70 mg tablet 70 mg PO WEEKLY Bone Health 09/21/23 09/21/23 History amitriptyline 25 mg tablet 25 mg PO HS Mood 09/21/23 09/21/23 History budesonide-formoterol HFA 160 2 puff inhalation BID Breathing 09/21/23 09/21/23 History mcg-4.5 mcg/actuation aerosol Problems inhaler (Symbicort) buspirone 10 mg tablet 10 mg PO TID Anxiety 09/21/23 09/21/23 History xlkhnbtlsp-ghmgrumspvixg-wjmiqngg 1 cap PO TIDP PRN headache 09/21/23 09/21/23 History 50 mg-300 mg-40 mg capsule (Fioricet) diazepam 10 mg tablet 10 mg PO HSP PRN Insomnia 09/21/23 09/21/23 History fluticasone fur. 200 mcg-umeclid 1 inh inhalation DAILY Breathing 09/21/23 09/21/23 History 62.5 mcg-vilant 25 mcg Problems inhalat.powder (Trelegy Ellipta) furosemide 20 mg tablet 20 mg PO DAILY Fluid 09/21/23 09/21/23 History ipratropium 0.5 mg-albuterol 3 mg 3 ml inhalation Q6HP PRN shortness 09/21/23 09/21/23 History (2.5 mg base)/3 mL nebulization of breath or wheezing soln metoprolol succinate 25 mg 25 mg PO DAILY High Blood Pressure 09/21/23 09/21/23 History tablet,extended release 24 hr mirtazapine 15 mg tablet (Remeron) 15 mg PO HS Mood 09/21/23 09/21/23 History potassium chloride 10 mEq 10 meq PO DAILY 09/21/23 09/21/23 History tablet,extended release prochlorperazine maleate 10 mg 10 mg PO BIDP PRN Nausea And 09/21/23 09/21/23 History tablet Vomiting tiotropium bromide 2.5 2 puff inhalation DAILY Breathing 09/21/23 09/21/23 History mcg/actuation mist for inhalation Problems (Spiriva Respimat) New Prescriptions to Start Prescriptions: Height: 1.6 m Weight: 48.308 kg Laboratory Results:: Laboratory Results - last 24 hr 09/22/23 05:57: Total Counted 100, Neutrophils % (Manual) 87 H, Band Neutrophils % 4.0, Lymphocytes % (Manual) 5 L, Monocytes % (Manual) 4, Platelet Estimate Normal, Hypochromasia 1+, Anisocytosis 1+, Procalcitonin 0.485 09/23/23 06:23: Sodium 142, Potassium 4.7, Chloride 107, Carbon Dioxide 33 H, Anion Gap 6.7, BUN 8, Creatinine 0.70, Estimated Creat Clear 42, Estimated GFR 83, Est GFR ( Amer) 101, Glucose 92, Calcium 8.1 L, Total Bilirubin 0.8, AST 27, ALT 16, Alkaline Phosphatase 84, Total Protein 5.9 L, Albumin 2.6 L D, Globulin 3.3 H, Albumin/Globulin Ratio 0.8 L Medical History: Medical History (Updated 09/21/23 @ 10:58 by Jordan Pacheco MD) Abnormal computerized axial tomography of chest Anxiety and depression Arrhythmia Bilateral lower extremity edema Bronchopulmonary aspergillosis Cavitary lesion of lung Chronic respiratory failure with hypoxia COPD (chronic obstructive pulmonary disease) COPD mixed type Dyspnea on exertion Family history of coronary artery disease Fungal pneumonia ILD (interstitial lung disease) Lung abscess Pulmonary emphysema Smoking greater than 30 pack years Tobacco abuse Assessment and Plan Assessment and plan all Dx Assessment and Plan for all problems:: Pharmacokinetic dosing service Objective: Patient: Floor: Age: 67 yo Serum creatinine: 1 mg/dL Height: 63.0 Inches Weight (kg): 48 Assessment: IBW (kg): 52.40 Dosing wt(kg): 48 Estimated Creatinine clearance (ml/min): 41.4 CRCL method: Cockcroft and Gault using ibw(default). Drug selected: Vancomycin Loading dose (mg): 0 Vd (liters): 38.4 (factor used: 0.8 L/kg) Jean Marie (hr-1): 0.039 Half life (hrs): 17.77 Recommended dose: 750 mg Interval: 24 hrs Infusion time (hrs): 2.0 Predicted peak (mcg/mL): 30.9 Predicted trough (mcg/mL): 13.10 Total body weight is being used for vancomycin dosing. Recommendations: Give Vancomycin 750 mg q 24 hrs with an expected Cpeak of 30.9 mcg/ml and an expected Ctrough of 13.10 mcg/ml ----Vanco only - ignore for aminoglycosides----- CLvanco= 1.50 L/hr AUC 0-24 /TOLU Data: TOLU 0.5 mcg/mL: AUC/TOLU: 1000.0 TOLU 1.0 mcg/mL: AUC/TOLU: 500.0 --------- TOLU 1.5 mcg/mL: AUC/TOLU: 333.3 TOLU 2.0 mcg/mL: AUC/TOLU: 250.0
[2023-09-23] MEDS: ENOXAPARIN 40MG/0.4ML SYRINGE 40 MG SQ (08:25)
[2023-09-23] MEDS: BUSPIRONE HCL 10 MG TABLET PO ×3 (08:25→20:08)
[2023-09-23] MEDS: POTASSIUM CHLORIDE 20MEQ TAB 40 MEQ PO ×2 (08:26→20:08)
[2023-09-23] MEDS: METOPROLOL SUCCINATE XL 25MG TABLET 25 MG PO (08:26)
[2023-09-23] MEDS: PANTOPRAZOLE 40MG TABLET 40 MG PO (08:26)
[2023-09-23] MEDS: VANCOMYCIN HCL 50MG/ML 150ML KIT 125 MG PO ×4 (08:26→20:08)
[2023-09-23] MEDS: LACTOBACILLUS PROBIOTIC COMB CAPSULE 1 CAP PO (08:26)
[2023-09-23] MEDS: NYSTATIN SUSP 500,000 UNITS/5ML UDC 500000 UNIT PO ×4 (08:27→20:07)
--- OUTSIDE RECORDS SUMMARY | 2023-09-23 08:33 | XMS_ITS | Continuity of Care Document ---
Author Name Unknown Organization [facility] Address [address] [place] [address] Phone Care Team Providers Care Horticultural Farm Manager Name Role Phone No Information Unavailable Unavailable Advance Directives Directive Yes / No Effective Date File Name No Information Encounters Encounter Description Practice Location Reason(s) For Visit Diagnoses Date Provider Providers Copied on Encounter [facility] , [address], [place], [address], [place] tel:[phone] MANOHAR [place] No Information No Information Family History Family Member Type Diagnosis Age At Onset No Information Payers Payer name Insurance type Covered democrat ID Authoriza tion(s) No Information Social History Type Description Quantity Date Captured Comments Sex Female Smoking Status No Information Chief Complaint And Reason For Visit No Information Reason For Referral Reason For Referral No Information History Of Present Illness Encounter Date Complaint History Of Prese nt Illness No Information Functional Status Date Functional Assessmen t No Information Instructions Date Instruction Additional Infor mation No Information Assessments Type Assessment Date No Information Patient Care Teams Name Effective Dates (start - stop) Status Members No Information
--- OUTSIDE RECORDS SUMMARY | 2023-09-23 08:33 | XMS_ITS | Continuity of Care Document ---
Author Name Unknown Organization [facility] Address [address] [place] [address] Phone Care Team Providers Care Book Author Name Role Phone No Information Unavailable Unavailable Advance Directives Directive Yes / No Effective Date File Name No Information Encounters Encounter Description Practice Location Reason(s) For Visit Diagnoses Date Provider Providers Copied on Encounter [facility] , [address], [place], [address], [place] tel:[phone] MANOHAR [place] No Information No Information Family History Family Member Type Diagnosis Age At Onset No Information Payers Payer name Insurance type Covered constitution party ID Authoriza tion(s) No Information Social History [...]
[2023-09-23] MEDS: ALBUTEROL-HFA 90MCG/PUFF INHALER 8GM 2 PUFF IH (09:05)
[2023-09-23 09:21] LABS: Basophils # 0.1 K/mm3 (0-0.2); Basophils % 0.2 % (0.1-2.0); Eosinophils % 0.1 % (0.1-12.0); Hematocrit 38.4 % (37.0-47.0); Hemoglobin 12.2 g/dL (12.2-16.2); Lymphocytes # 2.3 K/mm3 (0.7-4.5); Lymphocytes % 9.1 % (10-50); Mean Corpuscular HGB Conc 31.8 g/dL (31.8-35.4); Mean Corpuscular Hemoglobin 30.3 pg (27.0-31.2); Mean Corpuscular Volume 95.3 fl (81-99); Mean Platelet Volume 9.3 fl (7.4-10.4); Monocytes # 0.9 K/mm3 (0.1-1.0); Monocytes % 3.6 % (1.7-9.3); Neutrophils # 22.1 K/mm3 (1.8-7.8); Platelet Count 242 K/mm3 (142-424); Red Blood Count 4.03 M/mm3 (4.20-5.40); White Blood Count 25.4 K/mm3 (4.8-10.8)
[2023-09-23 09:24] LABS: MANUAL DIFFERENTIAL MANUAL DIFFERENTIAL (MANUAL DIFF)
[2023-09-23 09:36] LABS: NT Pro Brain Natriuretic Pep. 12600 pg/mL (0-125)
[2023-09-23 09:52] LABS: Anisocytosis 1+; Hypochromasia 1+; Lymphocytes % 6 % (10-50); Macrocytosis 1+; Monocytes % 7 % (2-9); Neutrophils % 83 % (42-76); Total Cells Counted 100
[2023-09-23 09:53] LABS: Ovalocytes 1+; Platelet Estimate Normal
[2023-09-23 11:22] LABS: Troponin I 0.13 ng/ml (0.00-0.034)
--- NOTE | 2023-09-23 12:25 | DIET.NUTRFU ---
RD attended rounds this morning where reported meal refusals to provider for both dinner last night and breakfast this morning. Patient was noted to have fever throughout night and nursing reported very lethargic this morning. Nursing also reported edema to her arm this morning. Cardio was consulted. Will continue to offer cardiac diet with ensures for additional calories/protein.
--- NOTE | 2023-09-23 14:26 | PC.NURSE ---
THIS NURSE ASSESSED PT, PT FOUND TO HAVE MORE LABORED BREATHING THAN BEFORE. HR IN HIGH 1-TEENS TO 120, RR 32 AT THIS TIME. PT ANSWERS TO NAME, HOWEVER IS VERY SLEEPY. CONTACTED MD GREENWOOD TO UPDATE ON PT STATUS, NNO, STATES HE IS GOING TO CONSULT CARDIOLOGY.
--- NOTE | 2023-09-23 14:27 | CT_ITS ---
FINAL REPORT TECHNIQUE: Thin section axial CT with contrast with multiplanar reconstruction. This study was performed with techniques to keep radiation doses as low as reasonably achievable (ALARA). Individualized dose reduction techniques using automated exposure control or adjustment of mA and/or kV according to the patient's size were employed. CLINICAL HISTORY: SOB COMPARISON: 08/25/2022 FINDINGS: Pulmonary vessels enhance in normal fashion without evidence of embolism. Thoracic aorta shows no dissection or aneurysm. Severe emphysematous changes are identified. There is interstitial prominence. There is a cavitary lesion in the right lung apex, roughly similar to prior. Small pericardial effusion is identified. There is no significant pleural effusion. No mediastinal or hilar adenopathy is present. There is fatty infiltration of the liver. Right renal cyst is noted. IMPRESSION: No evidence of pulmonary embolism. Cavitary lesion right lung apex, similar to previous. Reviewed, Interpreted and Dictated by Trini Ortiz MD Transcribed by Angie Villegas Authenticated and [facility]
--- NOTE | 2023-09-23 14:49 | CA_ITS ---
APPROVED REPORT EXAM: Comprehensive 2D, Doppler, and color-flow Echocardiogram Collection Development Librarian: Tisha Gonzales RT(R) Ht: 5 ft 2 in Wt: 106lbs BSA: 1.46 BP: 121/65 mmHg Indications: SOB, AFIB, Abn EKG, AFIB, home O2, COPD, edema, ROBLERO, smoker. Patient is upright and in a kyphotic positiion, limiting windows for echo. 2D Dimensions LVEF (Croft's) 50.00 % F: 54 - 74 LV Volume 43.20 mL F: 46 - 106 LV Volume Index 29.6 mL/m2 F: 29 - 61 EF AP4 41.20 % EF AP2 55.5 % EF BP 50.0 % GL Strain -15.3 % LV Diastology E Decel Time 173 (160-240 msec) E/A Ratio 0.6 Mitral Valve MV E Max Torrey. 73.0 (40-130 cm/s) MV A Velocity 115.0 (40-130 cm/s) E/A Ratio 0.63 MV PHT 51.0 ms Left Ventricle The left ventricle is normal size. There is a severely reduced LV systolic function. There is increased LV wall thickness. The septal and inferoseptal LV cerda are akinetic. Diastolic function is indeterminate. LVEF is 25%. Right Ventricle The right ventricle is normal size. The right ventricular systolic function is normal. Atria The left atrium size is normal. The right atrium size is normal. There is no Doppler evidence of interatrial shunt. Aortic Valve The aortic valve is mildly thickened. There is no aortic valvular stenosis. No aortic regurgitation is present. Mitral Valve The mitral valve leaflets are mildly thickened. Trace mitral regurgitation. Tricuspid Valve The tricuspid valve leaflets are thin and pliable. Trace tricuspid regurgitation. There is insufficient TR jet to estimate RVSP. Pulmonic Valve The pulmonary valve is normal in structure. Trace pulmonic regurgitation. Great Vessels The aortic root is normal in size. The ascending aorta is not well-visualized. The IVC is not well-visualized. Pericardium There is a moderate-sized pericardial effusion noted anteriorly. The largest pocket measures 1.0 cm in diastole. There is significant respirophasic variation across the tricuspid valve and RV invagination (but without true collapse) during diastole, both of which are suggestive of possible early tamponade features. Other Information Study Quality: Fair Conclusion Severely reduced LV systolic function (LVEF 25%). Akinetic septal and inferoseptal LV cerda. No significant valvular stenosis or regurgitation. Moderate-sized pericardial effusion noted anteriorly. The largest pocket measures 1.0 cm in diastole. There is significant respirophasic variation across the tricuspid valve and RV invagination (but without true collapse) during diastole, both of which are suggestive of possible early tamponade features. Electronically signed by : Lorene Napoles MD 09/24/2023 11:04:07
--- NOTE | 2023-09-23 15:00 | PC.NURSE ---
PT OFF FLOOR TO CT AT THIS TIME
--- NOTE | 2023-09-23 15:11 | P.PN_ITS ---
Subjective *Date: 09/23/23 *Time: 15:11 Interval history: Seen and examined at bedside. appears confused, Patient appears cachectic, but not in distress Exam Data for Last 24 hours Vital signs and Labs for Last 24 Hours: Temp Pulse Resp BP Pulse Ox O2 Del Method O2 Flow Rate 97.8 F 124 H 28 H 128/80 96 Nasal Cannula 2 09/23/23 11:45 09/23/23 13:31 09/23/23 11:45 09/23/23 11:45 09/23/23 11:45 09/23/23 12:09/23/23 12:31 Laboratory Results - last 24 hr 09/22/23 05:57: Procalcitonin 0.485 09/23/23 06:23: WBC 25.4 H* D, RBC 4.03 L, Hgb 12.2, Hct 38.4, MCV 95.3, MCH 30.3, MCHC 31.8, RDW 15.0, Plt Count 242, MPV 9.3, Neut % (Auto) 87.0 H, Lymph % (Auto) 9.1 L, [place] % (Auto) 3.6, Eos % (Auto) 0.1, Baso % (Auto) 0.2, Neut # (Auto) 22.1 H, Lymph # (Auto) 2.3, [place] # (Auto) 0.9, Eos # (Auto) 0.0, Baso # (Auto) 0.1, Total Counted 100, Neutrophils % (Manual) 83 H, Lymphocytes % (Manual) 6 L, Atypical Lymphs % 4.0, Monocytes % (Manual) 7, Platelet Estimate Normal, Hypochromasia 1+, Anisocytosis 1+, Macrocytosis 1+, Ovalocytes 1+, Sodium 142, Potassium 4.7, Chloride 107, Carbon Dioxide 33 H, Anion Gap 6.7, BUN 8, Creatinine 0.70, Estimated Creat Clear 42, Estimated GFR 83, Est GFR ( Amer) 101, Glucose 92, Calcium 8.1 L, Total Bilirubin 0.8, AST 27, ALT 16, Alkaline Phosphatase 84, NT-Pro-B Natriuret Pep 83892 H, Total Protein 5.9 L, Albumin 2.6 L D, Globulin 3.3 H, Albumin/Globulin Ratio 0.8 L 09/23/23 10:40: Troponin I 0.13 H I & O for Last 24 hours: Intake & Output 09/20/23 09/21/23 09/22/23 09/23/23 23:59 23:59 23:59 23:59 Intake Total 1050 / 1360 3002 / 3002 135 / 135 Output Total 0 / 0 2550 / 2550 550 / 550 Balance 1050 / 1360 452 / 452 -415 / -415 Weight 45.388 kg 45.84 kg 48.308 kg 48.308 kg Constitutional Constitutional: no acute distress Comments: appears weak and frail *Routine HEENT Exam Head: Present normocephalic Eye: Present EOMI and PERRL ENT: Present mucous membranes moist *Routine Neck Exam Neck: Present supple; Absent lymphadenopathy *Routine Respiratory Exam Respiratory: Present CTA bilaterally *Routine Cardiovascular Exam Cardiovascular: Present RRR *Routine Abdominal Exam Abdominal: Present soft and normoactive bowel sounds; Absent tenderness *Routine Extremities Exam Extremities: Absent cyanosis, clubbing or edema *Routine Skin Exam Skin: Present warm; Absent rash *Routine Neurological Exam Neurological: Present alert and oriented X3 Assessment and Plan *Assessment and plan (1) Hypokalemia: Status: Acute Category: Medical Code(s): E87.6 - Hypokalemia (2) Diarrhea: Status: Acute Qualifiers: Diarrhea type: unspecified type Qualified Code(s): R19.7 - Diarrhea, unspecified Category: Medical Code(s): R19.7 - Diarrhea, unspecified (3) Generalized weakness: Status: Acute Category: Medical Code(s): R53.1 - Weakness (4) Dehydration, moderate: Status: Acute Category: Medical Code(s): E86.0 - Dehydration (5) COPD mixed type: Status: Chronic Category: Medical Code(s): J44.9 - Chronic obstructive pulmonary disease, unspecified (6) Smoking greater than 30 pack years: Status: Chronic Category: Social Hx Code(s): F17.210 - Nicotine dependence, cigarettes, uncomplicated (7) Pulmonary cachexia due to COPD: Status: Acute Category: Medical Code(s): J44.9 - Chronic obstructive pulmonary disease, unspecified; R64 - Cachexia (8) Severe protein-calorie malnutrition: Status: Acute Category: Medical Code(s): E43 - Unspecified severe protein-calorie malnutrition Plan 67-year-old female with extensive PMHx, including but not limited to COPD, with cachexia, smoker, ILD, Afib, of presented today c/o weakness, secondary to diarrhea. Patient arrived to the ER with an empty oxygen tank. Supposed to be on 2L . Dehydrated. Labs showed severe hypokalemia. CO2 was elevated. As well as lactic acid. Patient started on IV fluids. Magnesium and potassium being replaced. ER called for admission. Discussed findings with the provider. In the setting of chronic diarrhea and previous antibiotic regimen, C. difficile colitis concern has been raised. Blood culture was taking diarrhea panel ordered. Patient continues to require inpatient management. Plan as follows: -Severe hypokalemia, likely secondary to chronic diarrhea: - improved, no BM in past 2 days -Suspected C. difficile colitis -Generalized weakness -Severe protein calorie malnutrition Cancel stool studies given no BM in past 3 days, dc c -diff empirical Abx continue IV fluid hydration. Normal saline at 50. PT/OT to eval and treat - patient and family wishes to go to Home with Nutrition consulted, supplementation with meals Lung opacities on CT abd check CXR start empirical Abx with vanc and cefepime check PCT check blood cultures - NGTD consult Pumonary Pleural efffusion elevated proBNP and troponin consult cardiology, monitor troponin order CTA chest to r/o PE -History of COPD, pulmonary aspergillosis,ILD: Elevated CO2 on admission. Monitor for O2 saturation O2 sat goal greater than 90%. Currently on 5 L nasal cannula oxygen douneb increased to every 4 hours scheduled Resume home nebulizer home regimen History of tobacco dependency:Nicotine patch as needed. Lovenox for DVT prophylaxis On Protonix for GI bleed protection and GERD Full code
[2023-09-23] MEDS: 0.9 % SODIUM CHLORIDE 50 ML VIAL 40 ML IV (15:23)
[2023-09-23] MEDS: IOPAMIDOL-370 (76%);100ML BOTTLE 70 ML IV (15:23)
[2023-09-23] MEDS: SODIUM CHLORIDE 0.9% 10ML SYR (RAD ONLY) 10 ML IV (15:23)
--- NOTE | 2023-09-23 15:34 | P.CONCA_ITS ---
History of Present Illness History of Present Illness Consult date: 09/23/23 Requesting physician: Blue Arnold Consult reason: shortness of breath Chief complaint: Pneumonia, Tachycardia Additional Medical History:: 1. History of paroxysmal atrial fibrillation A. Treated with beta-lilian therapy and reportedly had remained in sinus rhythm for many years B. [id number] score C. Echocardiogram, 2018, normal LV size with EF 60-65%. 2. Tobacco use A. COPD B. history of pulmonary aspergillosis C. Interstitial lung disease 3. Pneumonia, 08/2023 4. History of bipolar disorder 5. Anxiety 6. History of benign thyroid tumor, status post removal History of present illness: 67-year-old white female presented to the ER with multiple complaints including diarrhea and weakness over the last couple of weeks. Reportedly carried a history of CHF and had recently had some lower extremity edema. Patient was admitted to the hospitalist service for treatment of severe hypokalemia secondary to chronic diarrhea with concern for C. difficile after being on antibiotics over the last 2 weeks. Patient has slowly developed worsening pulmonary infiltrates and now tachycardia with elevated BNP and increasing troponins. Cardiology consulted for evaluation and recommendations. Patient just returned from CT of the chest to look for pulmonary embolus. She keeps her eyes closed and answers in very short sentences. She is mildly tachypneic. She denies any chest pain, pressure or tightness. BNP noted to be 12,600 Troponin early on admission was normal now 0.13 White count elevated to 25,000 BUN and creatinine normal Hypokalemia of 2.7 has resolved with potassium of 4.7 now. [facility] Disclaimer: The information contained in this section may have been updated after the patient was seen, as this information can be updated by other users. Medical History (Updated 09/24/23 @ 11:22 by Ana Rosa Aly MD) Abnormal computerized axial tomography of chest Acute and chronic respiratory failure with hypoxia Anxiety and depression Arrhythmia Bilateral lower extremity edema Bronchopulmonary aspergillosis Cavitary lesion of lung Chronic respiratory failure with hypoxia COPD (chronic obstructive pulmonary disease) COPD mixed type Dyspnea on exertion Family history of coronary artery disease Fungal pneumonia ILD (interstitial lung disease) Lung abscess Pulmonary emphysema Smoking greater than 30 pack years Tobacco abuse Surgical History (Updated 09/20/23 @ 23:13 by Adamaris Katz RN) H/O thyroidectomy History of knee surgery Family History Other Cancer Diabetes Social History Smoking Status: Current every day smoker tobacco type: cigarettes packs per day: 2 alcohol intake: never substance use type: denies use current occupational status: unemployed and retired Travel in the last 8 weeks: None Review of Systems Review of Systems Review of systems:: pertinent systems reviewed and negative unless documented below *Cardiovascular Cardiovascular: Denies chest pain and Reports dyspnea *Respiratory Respiratory: Reports dyspnea Exam Data for Last 24 hours Vital signs and Labs for Last 24 Hours: Temp Pulse Resp BP Pulse Ox O2 Del Method O2 Flow Rate 97.8 F 124 H 28 H 128/80 96 Nasal Cannula 2 09/23/23 11:45 09/23/23 13:31 09/23/23 11:45 09/23/23 11:45 09/23/23 11:45 09/23/23 12:31 09/23/23 12:31 Laboratory Results - last 24 hr 09/22/23 05:57: Procalcitonin 0.485 09/23/23 06:23: WBC 25.4 H* D, RBC 4.03 L, Hgb 12.2, Hct 38.4, MCV 95.3, MCH 30.3, MCHC 31.8, RDW 15.0, Plt Count 242, MPV 9.3, Neut % (Auto) 87.0 H, Lymph % (Auto) 9.1 L, [place] % (Auto) 3.6, Eos % (Auto) 0.1, Baso % (Auto) 0.2, Neut # (Auto) 22.1 H, Lymph # (Auto) 2.3, [place] # (Auto) 0.9, Eos # (Auto) 0.0, Baso # (Auto) 0.1, Total Counted 100, Neutrophils % (Manual) 83 H, Lymphocytes % (Manual) 6 L, Atypical Lymphs % 4.0, Monocytes % (Manual) 7, Platelet Estimate Normal, Hypochromasia 1+, Anisocytosis 1+, Macrocytosis 1+, Ovalocytes 1+, Sodium 142, Potassium 4.7, Chloride 107, Carbon Dioxide 33 H, Anion Gap 6.7, BUN 8, Creatinine 0.70, Estimated Creat Clear 42, Estimated GFR 83, Est GFR ( Amer) 101, Glucose 92, Calcium 8.1 L, Total Bilirubin 0.8, AST 27, ALT 16, Alkaline Phosphatase 84, NT-Pro-B Natriuret Pep 06109 H, Total Protein 5.9 L, Albumin 2.6 L D, Globulin 3.3 H, Albumin/Globulin Ratio 0.8 L 09/23/23 10:40: Troponin I 0.13 H I & O for Last 24 hours: Intake & Output 09/21/23 09/22/23 09/23/23 09/24/23 11:59 11:59 11:59 11:59 Intake Total 240 / 240 1290 / 1290 2522 / 2522 135 / 135 Output Total 0 / 0 550 / 550 2350 / 2350 200 / 200 Balance 240 / 240 740 / 740 172 / 172 -65 / -65 Weight 101 lb 0.958 oz 106 lb 8 oz 106 lb 8.014 oz Constitutional Constitutional: mild distress, thin and cachectic *Routine Respiratory Exam Respiratory: Present rhonchi; Absent wheezes *Routine Cardiovascular Exam Cardiovascular: Present tachycardia *Routine Extremities Exam Extremities: Absent edema *Routine Neurological Exam Neurological: Present alert Meds Home Medications and Allergies Home Medications Medication Instructions Recorded Confirmed Type gabapentin 100 mg capsule 200 mg PO TID Pain #90 caps 07/03/23 09/21/23 Rx albuterol sulfate 90 mcg/actuation 2 puff inhalation Q4HP PRN 09/21/23 09/21/23 History aerosol inhaler (Ventolin HFA) Shortness Of Breath Or Wheezing alendronate 70 mg tablet 70 mg PO WEEKLY Bone Health 09/21/23 09/21/23 History amitriptyline 25 mg tablet 25 mg PO HS Mood 09/21/23 09/21/23 History budesonide-formoterol HFA 160 2 puff inhalation BID Breathing 09/21/23 09/21/23 History mcg-4.5 mcg/actuation aerosol Problems inhaler (Symbicort) buspirone 10 mg tablet 10 mg PO TID Anxiety 09/21/23 09/21/23 History lfpkaelqwt-nnnqfgsmtylou-alcqbdje 1 cap PO TIDP PRN headache 09/21/23 09/21/23 History 50 mg-300 mg-40 mg capsule (Fioricet) diazepam 10 mg tablet 10 mg PO HSP PRN Insomnia 09/21/23 09/21/23 History fluticasone fur. 200 mcg-umeclid 1 inh inhalation DAILY Breathing 09/21/23 09/21/23 History 62.5 mcg-vilant 25 mcg Problems inhalat.powder (Trelegy Ellipta) furosemide 20 mg tablet 20 mg PO DAILY Fluid 09/21/23 09/21/23 History ipratropium 0.5 mg-albuterol 3 mg 3 ml inhalation Q6HP PRN shortness 09/21/23 09/21/23 History (2.5 mg base)/3 mL nebulization of breath or wheezing soln metoprolol succinate 25 mg 25 mg PO DAILY High Blood Pressure 09/21/23 09/21/23 History tablet,extended release 24 hr mirtazapine 15 mg tablet (Remeron) 15 mg PO HS Mood 09/21/23 09/21/23 History potassium chloride 10 mEq 10 meq PO DAILY 09/21/23 09/21/23 History tablet,extended release prochlorperazine maleate 10 mg 10 mg PO BIDP PRN Nausea And 09/21/23 09/21/23 History tablet Vomiting tiotropium bromide 2.5 2 puff inhalation DAILY Breathing 09/21/23 09/21/23 History mcg/actuation mist for inhalation Problems (Spiriva Respimat) New Prescriptions to Start Prescriptions: Allergies Allergy/AdvReac Type Severity Reaction Status Date / Time codeine Allergy Verified 09/08/23 08:52 Penicillins Allergy Verified 09/08/23 08:52 lithium AdvReac Unknown Verified 09/08/23 08:52 Assessment and Plan *Assessment and plan (1) PAF (paroxysmal atrial fibrillation): Status: Acute Category: Medical Code(s): I48.0 - Paroxysmal atrial fibrillation (2) PNA (pneumonia): Status: Acute Qualifiers: Laterality: bilateral Lung location: lower lobe of lung Pneumonia type: due to unspecified organism Qualified Code(s): J18.9 - Pneumonia, unspecified organism Category: Medical Code(s): J18.9 - Pneumonia, unspecified organism (3) Declining functional status: Status: Acute Category: Medical Code(s): R53.81 - Other malaise (4) Generalized weakness: Status: Acute Category: Medical Code(s): R53.1 - Weakness (5) ILD (interstitial lung disease): Status: Chronic Category: Medical Code(s): J84.9 - Interstitial pulmonary disease, unspecified (6) Smoking greater than 30 pack years: Status: Chronic Category: Social Hx Code(s): F17.210 - Nicotine dependence, cigarettes, uncomplicated (7) COPD (chronic obstructive pulmonary disease): Status: Chronic Qualifiers: COPD type: chronic bronchitis Chronic bronchitis type: unspecified Qualified Code(s): J42 - Unspecified chronic bronchitis Category: Medical Code(s): J44.9 - Chronic obstructive pulmonary disease, unspecified (8) Tobacco abuse: Status: Chronic Category: Medical Code(s): Z72.0 - Tobacco use Plan 1. Worsening pneumonia with increasing white count -Antibiotic therapy per hospitalist, on vancomycin, nystatin and cefepime -Concern for aspiration pneumonia -Pulmonary has been consulted 2. Tachycardia with history of paroxysmal atrial fibrillation -Likely related to worsening pneumonia but will monitor and increase beta- lilian as needed -Check echocardiogram -CTA of the chest today negative for pulmonary embolus 3. Elevated BNP in setting of IV fluids for dehydration -Diuretic therapy has been started with Lasix 40 mg twice daily 4. Elevated troponins -Likely related to worsening pneumonia but will assess ejection fraction on echocardiogram 5. COPD and interstitial lung disease with tobacco use -Cavitary lesion right lung apex, similar to previous study August 2022 6. Hypokalemia, resolved 7. Hypoproteinemia and hypoalbuminemia Check EKG and echo. Further recommendations to follow.
[2023-09-23] MEDS: FUROSEMIDE 40MG/4ML VIAL 40 MG IV (16:22)
--- NOTE | 2023-09-23 16:22 | ECG_ITS ---
APPROVED REPORT Exam: Resting ECG HR:96 bpm ECG Measurements Heart Rate 96 AXES WA 135 P 75 QRSd 64 QRS -83 QT 302 T 68 QTc 355 Conclusion SINUS RHYTHM LOW QRS VOLTAGE IN PRECORDIAL LEADS Marked artifact limits interpretation ABNORMAL ECG UNCONFIRMED REPORT Electronically signed by : Nils Martinez MD 09/23/2023 22:37:37
[2023-09-23] MEDS: NICOTINE 21MG/24HR PATCH 21 MG TD (16:58)
--- NOTE | 2023-09-23 17:33 | PC.NURSE ---
PT IS A&OX4, HOWEVER HAS BEEN VERY SLEEPY AND SLOW TO RESPOND THIS SHIFT. PT IS TOLERATING 4LNC WELL AT THIS TIME. HAVE HAD TO INCREASE T/O SHIFT. PT HAS COURSE CRACKLES AND RHONCI T/O LUNGS PER AUSCULTATION. HAS INTERMITTENT HACKING NON-PRODUCTIVE COUGH. PT IS VERY WEAK. RECEIVING SCHEDULED BREATHING TXS. HAS HAD 2 LOOSE BMS SO FAR THIS SHIFT. HAS REMAINED IN BED, X2 ASSIST. PURE WICK IN PLACE DRAINING VERY DARK YELLOW URINE. PT HAS HAD NO C/O THUS FAR THIS SHIFT. HAS BEEN TACHYCARDIC. WILL BE NPO AFTER MIDNIGHT FOR POSSIBLE PERICARDIAL DRAINAGE PER CARDS. VSS.
[2023-09-23] MEDS: VANCOMYCIN HCL 750 MG in 0.9 % SODIUM CHLORIDE 250 ML 250 MG IV (17:42)
--- NOTE | 2023-09-23 18:00 | PC.NURSE ---
THIS NURSE REMOVED COBAND AND GAUZE FROM R FOREARM D/T EDEMA NOTED. WHILE REMOVING, SKIN TEAR NOTED TO R FOREARM. PT AND FAMILY AWARE, PT HAS NO C/O, DRESSING APPLIED.
[2023-09-23] MEDS: MIRTAZAPINE 15 MG TABLET PO (20:08)
--- NOTE | 2023-09-23 21:27 | PC.NURSE ---
ultrasound guided IV placed in right forearm
[2023-09-24] VITALS (27 sets, daily range): BP systolic 76–112; BP diastolic 30–68; PULSE 105–130; RESP 17–44; TEMP 36.4–37.9; O2SAT 94–100; BMI 18.6
--- NOTE | 2023-09-24 | CA_ITS ---
APPROVED REPORT EXAM: Comprehensive 2D, Doppler, and color-flow Echocardiogram Plasma Processing Centrifuge Operator: Soraida Chester CRT Ht: 5 ft 2 in Wt: 106lbs BSA: 1.46 BP: 124/64 mmHg Indications: Pericardiocentesis Other Information Study Quality: Fair Conclusion This is a limited TTE to evaluate for pericardial effusion intraprocedurally during pericardiocentesis. Limited windows were obtained. Pre-procedurally, there is a large-sized circumferential pericardial effusion present. The largest pocket is noted anteriorly and measures 2.1 cm in diastole. The pericardial fluid is of heterogeneous echodensity, suggestive of possible hemorrhagic component. There is also RV collapse in diastole, suggestive of likely tamponade. Compared to prior study from 1 day prior on 09/23/2023, the pericardial effusion appears larger. Post-procedurally with JANELLE drain in place and actively draining, the effusion appears smaller in size, in moderate range measuring up to 1.3 cm in diastole. The RV cavity appears more expanded. The primary cardiology team was notified of the above findings intraprocedurally during the acquisition of the study images. Electronically signed by : Lorene Napoles MD 09/25/2023 14:48:34
[2023-09-24] MEDS: IPRATROPIUM/ALBUTEROL 3 ML NEB IH ×4 (01:50→17:53)
[2023-09-24] MEDS: TIOTROPIUM 18MCG/PUFF INHALER 1 CAP IH (05:55)
[2023-09-24] MEDS: FLUTICASONE/UMECLIDIN/VILANTER 200/62.5/25MCG INHALER 1 PUFF IH (05:55)
[2023-09-24 07:16] LABS: Chloride 107 mmol/L (98-107); Potassium 4.9 mmoL/L (3.5-5.1); Sodium 141 mmol/L (136-145)
[2023-09-24 07:19] LABS: Alanine Aminotransferase 16 U/L (12-78); Albumin Level 2.5 g/dl (3.5-5.0); Albumin/Globulin Ratio 0.7 (1.1-1.8); Alkaline Phosphatase 86 U/L (38-126); Anion Gap 7.9 mEq/L (5-15); Aspartate Amino Transferase 24 U/L (14-36); Bilirubin,Total 0.8 mg/dl (0.2-1.3); Blood Urea Nitrogen 11 mg/dl (7-17); Calcium 8.5 mg/dl (8.4-10.2); Carbon Dioxide 31 mmol/L (22.0-30.0); Creatinine Clearance Estimated 41 mL/min (50-200); Estimated Glomerular Filt Rate 72 ml/min (>60); GFR (African American) 87 ML/MIN (>60); Globulin 3.5 g/dL (1.3-3.2); Glucose 95 mg/dl (74-100)
[2023-09-24] MEDS: CEFEPIME HCL 2 GM in 0.9 % SODIUM CHLORIDE 100 ML IV ×2 (08:38→20:37)
[2023-09-24] MEDS: BUSPIRONE HCL 10 MG TABLET PO (08:38)
[2023-09-24] MEDS: FUROSEMIDE 40MG/4ML VIAL 40 MG IV ×2 (08:39→16:19)
[2023-09-24] MEDS: LACTOBACILLUS PROBIOTIC COMB CAPSULE 1 CAP PO (08:39)
[2023-09-24] MEDS: ENOXAPARIN 40MG/0.4ML SYRINGE 40 MG SQ (08:39)
[2023-09-24] MEDS: NYSTATIN SUSP 500,000 UNITS/5ML UDC 500000 UNIT PO ×3 (08:39→16:19)
[2023-09-24] MEDS: VANCOMYCIN HCL 50MG/ML 150ML KIT 125 MG PO (08:39)
[2023-09-24] MEDS: PANTOPRAZOLE 40MG TABLET 40 MG PO (08:44)
[2023-09-24 08:48] LABS: Chloride 107 mmol/L (98-107); Sodium 142 mmol/L (136-145)
[2023-09-24 08:50] LABS: Basophils % 0.2 % (0.1-2.0); Eosinophils % 0.2 % (0.1-12.0); Hemoglobin 11.1 g/dL (12.2-16.2); Lymphocytes # 2.2 K/mm3 (0.7-4.5); Lymphocytes % 12.3 % (10-50); Mean Corpuscular HGB Conc 31.8 g/dL (31.8-35.4); Mean Corpuscular Hemoglobin 30.1 pg (27.0-31.2); Mean Corpuscular Volume 94.5 fl (81-99); Mean Platelet Volume 9.1 fl (7.4-10.4); Monocytes # 0.8 K/mm3 (0.1-1.0); Monocytes % 4.6 % (1.7-9.3); Neutrophils # 14.7 K/mm3 (1.8-7.8); Neutrophils % 82.6 % (37.0-80.0); Platelet Count 265 K/mm3 (142-424); Red Cell Distribution Width 15.1 % (11.5-17.5); White Blood Count 17.7 K/mm3 (4.8-10.8)
[2023-09-24 08:51] LABS: Blood Urea Nitrogen 11 mg/dl (7-17); Carbon Dioxide 32 mmol/L (22.0-30.0); Creatinine Clearance Estimated 41 mL/min (50-200); Estimated Glomerular Filt Rate 72 ml/min (>60); GFR (African American) 87 ML/MIN (>60)
[2023-09-24 08:52] LABS: Calcium 8.6 mg/dl (8.4-10.2); Glucose 94 mg/dl (74-100)
[2023-09-24 09:09] LABS: MANUAL DIFFERENTIAL MANUAL DIFFERENTIAL (MANUAL DIFF)
--- NOTE | 2023-09-24 09:51 | P.CONS_ITS ---
History of Present Illness History of present illness: Ms. Yuan is a 67-year-old female history of COPD, chronic hypoxic respiratory failure, right upper lobe cavitary lesion positive serology for Aspergillus, will do bronchoscopy transbronchial biopsy, initial itraconazole 200 mg twice daily in October 2022 he was last seen in pulmonary clinic presented to the ER on 09/20/2023 complaining of worsening weakness and diarrhea. Patient also been treating with levofloxacin for lower extremity cellulitis. [facility] Disclaimer: The information contained in this section may have been updated after the patient was seen, as this information can be updated by other users. Medical History (Updated 09/24/23 @ 11:22 by Ana Rosa Aly MD) Abnormal computerized axial tomography of chest Acute and chronic respiratory failure with hypoxia Anxiety and depression Arrhythmia Bilateral lower extremity edema Bronchopulmonary aspergillosis Cavitary lesion of lung Chronic respiratory failure with hypoxia COPD (chronic obstructive pulmonary disease) COPD mixed type Dyspnea on exertion Family history of coronary artery disease Fungal pneumonia ILD (interstitial lung disease) Lung abscess Pulmonary emphysema Smoking greater than 30 pack years Tobacco abuse Surgical History (Updated 09/20/23 @ 23:13 by Adamaris Katz RN) H/O thyroidectomy History of knee surgery Family History Other Cancer Diabetes Social History Smoking Status: Current every day smoker tobacco type: cigarettes packs per day: 2 alcohol intake: never substance use type: denies use current occupational status: unemployed and retired Travel in the last 8 weeks: None Review of Systems Constitutional Constitutional: Reports anorexia, Reports body ache(s) and Reports fatigue Eyes Eyes: Denies eye discharge, Denies dry eyes, Denies irritation and Denies itchy eyes ENT Ears, Nose, Mouth, and Throat: Denies epistaxis, Denies facial pain, Denies lip swelling and Denies throat swelling *Cardiovascular Cardiovascular: Reports dyspnea, Reports dyspnea on exertion, Reports leg edema and Reports orthopnea *Respiratory Respiratory: Reports chest congestion, Reports cough, Reports dyspnea, Reports dyspnea on exertion, Denies excessive phlegm production and Denies wheezing *Gastrointestinal Gastrointestinal: Denies abdominal pain, Denies belching and Denies cramping *Musculoskeletal Musculoskeletal: Reports back pain, Reports myalgias and Reports other (No small joint swelling or Pain) Psychiatric Psychiatric: Denies homicidal ideation and Denies suicidal ideation Endocrine Endocrine: Reports fatigue and Denies heat intolerance Hematologic/Lymphatic Hematologic/Lymphatic: Denies easy bleeding and Denies lymphadenopathy Allergic/Immunologic Allergic/Immunologic: Denies itchy eyes, Denies lip swelling, Denies throat swelling and Denies wheezing Pulmonology Exam Inpatient Vital signs and Labs for Last 24 Hours: Temp Pulse Resp BP Pulse Ox O2 Del Method O2 Flow Rate 97.7 F 106 H 20 83/51 L 95 Nasal Cannula 3 09/24/23 08:00 09/24/23 09:03 09/24/23 08:00 09/24/23 08:00 09/24/23 09:03 09/24/23 09:03 09/24/23 09:03 Laboratory Results - last 24 hr 09/23/23 06:23: Total Counted 100, Neutrophils % (Manual) 83 H, Lymphocytes % (Manual) 6 L, Atypical Lymphs % 4.0, Monocytes % (Manual) 7, Platelet Estimate Normal, Hypochromasia 1+, Anisocytosis 1+, Macrocytosis 1+, Ovalocytes 1+ 09/23/23 10:40: Troponin I 0.13 H 09/24/23 06:35: WBC 17.7 H D, RBC 3.70 L, Hgb 11.1 L, Hct 35.0 L, MCV 94.5, MCH 30.1, MCHC 31.8, RDW 15.1, Plt Count 265, MPV 9.1, Neut % (Auto) 82.6 H, Lymph % (Auto) 12.3, [place] % (Auto) 4.6, Eos % (Auto) 0.2, Baso % (Auto) 0.2, Neut # (Auto) 14.7 H, Lymph # (Auto) 2.2, [place] # (Auto) 0.8, Eos # (Auto) 0.0, Baso # (Auto) 0.0, Sodium 141 09/24/23 06:35: Sodium 142, Potassium 4.9 09/24/23 06:35: Potassium 5.0, Chloride 107 09/24/23 06:35: Chloride 107, Carbon Dioxide 31 H 09/24/23 06:35: Carbon Dioxide 32 H, Anion Gap 7.9 09/24/23 06:35: Anion Gap 8.0, BUN 11 D 09/24/23 06:35: BUN 11, Creatinine 0.80 09/24/23 06:35: Creatinine 0.80, Estimated Creat Clear 41 09/24/23 06:35: Estimated Creat Clear 41, Estimated GFR 72 09/24/23 06:35: Estimated GFR 72, Est GFR ( Amer) 87 09/24/23 06:35: Est GFR ( Amer) 87, Glucose 95 09/24/23 06:35: Glucose 94, Calcium 8.5 09/24/23 06:35: Calcium 8.6, Total Bilirubin 0.8, AST 24, ALT 16, Alkaline Phosphatase 86, Total Protein 6.0 L, Albumin 2.5 L, Globulin 3.5 H, Albumin/Globulin Ratio 0.7 L I & O for Labs for Last 24 Hours: Intake & Output 09/21/23 09/22/23 09/23/23 09/24/23 23:59 23:59 23:59 23:59 Intake Total 1050 / 1360 3002 / 3002 795 / 795 Output Total 0 / 0 2550 / 2550 1250 / 1250 1200 / 1200 Balance 1050 / 1360 452 / 452 -455 / -455 -1200 / -1200 Weight 101 lb 0.958 oz 106 lb 8 oz 106 lb 8.014 oz 105 lb 8 oz Microbiology Reports for the Last 24 Hours: Microbiology 09/20/23 18:05 Blood Blood Culture - Preliminary 09/20/23 22:00 Blood Blood Culture - Preliminary Constitutional: Present severe distress Head: Present normocephalic and atraumatic ENT: Present normal exam, normal oropharynx and mucous membranes moist Neck: Present normal inspection and full ROM Respiratory: Present respiratory distress, crackles, diminished air movement and able to speak in complete sentences; Absent wheezes or normal respiratory effort Cardiac: Present S1/S2, Tachycardia and radial pulses present GI: Present soft and distention; Absent tenderness or guarding Rectal (female): Present deferred (female): Present deferred Skin: Present intact; Absent cyanosis or jaundice Neuro: Present awake; Absent alert or oriented x 3 Extremities: Present normal inspection; Absent clubbing or cyanosis Psychiatric: Present normal affect and cooperative Meds Home Medications and Allergies Home Medications Medication Instructions Recorded Confirmed Type gabapentin 100 mg capsule 200 mg PO TID Pain #90 caps 07/03/23 09/21/23 Rx albuterol sulfate 90 mcg/actuation 2 puff inhalation Q4HP PRN 09/21/23 09/21/23 History aerosol inhaler (Ventolin HFA) Shortness Of Breath Or Wheezing alendronate 70 mg tablet 70 mg PO WEEKLY Bone Health 09/21/23 09/21/23 History amitriptyline 25 mg tablet 25 mg PO HS Mood 09/21/23 09/21/23 History budesonide-formoterol HFA 160 2 puff inhalation BID Breathing 09/21/23 09/21/23 History mcg-4.5 mcg/actuation aerosol Problems inhaler (Symbicort) buspirone 10 mg tablet 10 mg PO TID Anxiety 09/21/23 09/21/23 History mincflpaev-demgcmbqqdxvi-scozaiiv 1 cap PO TIDP PRN headache 09/21/23 09/21/23 History 50 mg-300 mg-40 mg capsule (Fioricet) diazepam 10 mg tablet 10 mg PO HSP PRN Insomnia 09/21/23 09/21/23 History fluticasone fur. 200 mcg-umeclid 1 inh inhalation DAILY Breathing 09/21/23 09/21/23 History 62.5 mcg-vilant 25 mcg Problems inhalat.powder (Trelegy Ellipta) furosemide 20 mg tablet 20 mg PO DAILY Fluid 09/21/23 09/21/23 History ipratropium 0.5 mg-albuterol 3 mg 3 ml inhalation Q6HP PRN shortness 09/21/23 09/21/23 History (2.5 mg base)/3 mL nebulization of breath or wheezing soln metoprolol succinate 25 mg 25 mg PO DAILY High Blood Pressure 09/21/23 09/21/23 History tablet,extended release 24 hr mirtazapine 15 mg tablet (Remeron) 15 mg PO HS Mood 09/21/23 09/21/23 History potassium chloride 10 mEq 10 meq PO DAILY 09/21/23 09/21/23 History tablet,extended release prochlorperazine maleate 10 mg 10 mg PO BIDP PRN Nausea And 09/21/23 09/21/23 History tablet Vomiting tiotropium bromide 2.5 2 puff inhalation DAILY Breathing 09/21/23 09/21/23 History mcg/actuation mist for inhalation Problems (Spiriva Respimat) New Prescriptions to Start Prescriptions: Allergies Allergy/AdvReac Type Severity Reaction Status Date / Time codeine Allergy Verified 09/08/23 08:52 Penicillins Allergy Verified 09/08/23 08:52 lithium AdvReac Unknown Verified 09/08/23 08:52 Results Laboratory Findings 09/24/23 06:35 09/24/23 06:35 Abnormal lab findings: Abnormal Labs 09/20/23 09/21/23 09/22/23 18:05 05:35 05:57 WBC 18.0 H 19.3 H 18.4 H RBC 4.18 L 3.72 L Hgb 11.1 L Hct 34.7 L Neut % (Auto) 80.6 H 82.5 H 87.8 H Lymph % (Auto) 8.0 L Neut # (Auto) 14.5 H 15.9 H 16.2 H Neutrophils % (Manual) 87 H Lymphocytes % (Manual) 5 L Sodium 135 L Potassium 2.7 L* 3.1 L Chloride 82 L 90 L Carbon Dioxide 47 H* 39 H 38 H Anion Gap 2.0 L BUN 6 L D Estimated GFR 55 L Glucose 107 H Lactate 2.5 H Calcium 8.0 L 8.0 L 7.6 L Magnesium 1.5 L AST 53 H 41 H Troponin I NT-Pro-B Natriuret Pep Total Protein 6.1 L 5.0 L Albumin 3.2 L 2.9 L 2.3 L D Globulin 3.6 H Albumin/Globulin Ratio 0.9 L 0.9 L 0.9 L 09/23/23 09/23/23 09/24/23 06:23 10:40 06:35 WBC 25.4 H* D 17.7 H D RBC 4.03 L 3.70 L Hgb 11.1 L Hct 35.0 L Neut % (Auto) 87.0 H 82.6 H Lymph % (Auto) 9.1 L Neut # (Auto) 22.1 H 14.7 H Neutrophils % (Manual) 83 H Lymphocytes % (Manual) 6 L Sodium Potassium Chloride Carbon Dioxide 33 H 31 H Anion Gap BUN Estimated GFR Glucose Lactate Calcium 8.1 L Magnesium AST Troponin I 0.13 H NT-Pro-B Natriuret Pep 79310 H Total Protein 5.9 L Albumin 2.6 L D Globulin 3.3 H Albumin/Globulin Ratio 0.8 L 09/24/23 06:35 WBC RBC Hgb Hct Neut % (Auto) Lymph % (Auto) Neut # (Auto) Neutrophils % (Manual) Lymphocytes % (Manual) Sodium Potassium Chloride Carbon Dioxide 32 H Anion Gap BUN Estimated GFR Glucose Lactate Calcium Magnesium AST Troponin I NT-Pro-B Natriuret Pep Total Protein 6.0 L Albumin 2.5 L Globulin 3.5 H Albumin/Globulin Ratio 0.7 L Assessment and Plan *Assessment and plan (1) COPD mixed type: Status: Chronic Category: Medical Code(s): J44.9 - Chronic obstructive pulmonary disease, unspecified (2) Acute and chronic respiratory failure with hypoxia: Status: Acute Category: Medical Code(s): J96.21 - Acute and chronic respiratory failure with hypoxia (3) Fungal pneumonia: Status: Chronic Category: Medical Code(s): J16.8 - Pneumonia due to other specified infectious organisms; B49 - Unspecified mycosis Plan Ms. Yuan is a 67-year-old female history of COPD, chronic hypoxic respiratory failure, right upper lobe cavitary lesion positive serology for Aspergillus, will do bronchoscopy transbronchial biopsy, initial itraconazole 200 mg twice daily in October 2022 he was last seen in pulmonary clinic presented to the ER on 09/20/2023 complaining of worsening weakness and diarrhea. Patient also been treating with levofloxacin for lower extremity cellulitis. Patient since admission is being treated for diarrhea, C. difficile colitis, pneumonia for noted pulm infiltrates with vancomycin and cefepime. CTA on this admission no evidence of pulmonary embolism. Improving right upper lobe cavitary lesion. No other dense consolidation or airspace disease noted. Echocardiogram severely reduced LV systolic function with a EF of 25%. Moderate pericardial effusion status post pericardiocentesis. Plan: DuoNebs every 6 hours scheduled along with Pulmicort every 12 scheduled Continue oxygen supplementation to maintain O2 saturation goal of 90% and above Antibiotics can be weaned to Augmentin to complete a total of 7-day course from pulmonary standpoint fpr presumed Pneumoia given no concerning evidence of airspace disease noted We will hold off on reinitiating itraconazole at this point of time given improvement in her cavitary lung disease, will follow as an outpatient basis Follow with cardiology recommendations # Thank you for involving pulmonary in this patient care. Will continue to follow.
--- NOTE | 2023-09-24 09:53 | EXP.CARD.PN ---
Subjective Subjective Date: 09/24/23 Time: 09:53 Principal diagnosis: Pericardial effusion, pneumonia, tachycardia Interval history: 67-year-old female in bed undergoing breathing treatment at this time. Still with conversational dyspnea. Heart rate still tachycardic in the 100-120 bpm range Discussed with Dr. Paulson and would recommend proceeding with pericardiocentesis due to borderline early signs of tamponade. Exam Data for Last 24 hours Vital signs and Labs for Last 24 Hours: Temp Pulse Resp BP Pulse Ox O2 Del Method O2 Flow Rate 97.7 F 106 H 20 83/51 L 95 Nasal Cannula 3 09/24/23 08:00 09/24/23 09:03 09/24/23 08:00 09/24/23 08:00 09/24/23 09:03 09/24/23 09:03 09/24/23 09:03 Laboratory Results - last 24 hr 09/23/23 06:23: Total Counted 100, Neutrophils % (Manual) 83 H, Lymphocytes % (Manual) 6 L, Atypical Lymphs % 4.0, Monocytes % (Manual) 7, Platelet Estimate Normal, Hypochromasia 1+, Anisocytosis 1+, Macrocytosis 1+, Ovalocytes 1+ 09/23/23 10:40: Troponin I 0.13 H 09/24/23 06:35: WBC 17.7 H D, RBC 3.70 L, Hgb 11.1 L, Hct 35.0 L, MCV 94.5, MCH 30.1, MCHC 31.8, RDW 15.1, Plt Count 265, MPV 9.1, Neut % (Auto) 82.6 H, Lymph % (Auto) 12.3, [place] % (Auto) 4.6, Eos % (Auto) 0.2, Baso % (Auto) 0.2, Neut # (Auto) 14.7 H, Lymph # (Auto) 2.2, [place] # (Auto) 0.8, Eos # (Auto) 0.0, Baso # (Auto) 0.0, Sodium 141 09/24/23 06:35: Sodium 142, Potassium 4.9 09/24/23 06:35: Potassium 5.0, Chloride 107 09/24/23 06:35: Chloride 107, Carbon Dioxide 31 H 09/24/23 06:35: Carbon Dioxide 32 H, Anion Gap 7.9 09/24/23 06:35: Anion Gap 8.0, BUN 11 D 09/24/23 06:35: BUN 11, Creatinine 0.80 09/24/23 06:35: Creatinine 0.80, Estimated Creat Clear 41 09/24/23 06:35: Estimated Creat Clear 41, Estimated GFR 72 09/24/23 06:35: Estimated GFR 72, Est GFR ( Amer) 87 09/24/23 06:35: Est GFR ( Amer) 87, Glucose 95 09/24/23 06:35: Glucose 94, Calcium 8.5 09/24/23 06:35: Calcium 8.6, Total Bilirubin 0.8, AST 24, ALT 16, Alkaline Phosphatase 86, Total Protein 6.0 L, Albumin 2.5 L, Globulin 3.5 H, Albumin/Globulin Ratio 0.7 L I & O for Last 24 hours: Intake & Output 09/21/23 09/22/23 09/23/23 09/24/23 11:59 11:59 11:59 11:59 Intake Total 240 / 240 1290 / 1290 2522 / 2522 795 / 795 Output Total 0 / 0 550 / 550 2350 / 2350 2100 / 2100 Balance 240 / 240 740 / 740 172 / 172 -1305 / -1305 Weight 101 lb 0.958 oz 106 lb 8 oz 106 lb 8.014 oz 105 lb 8 oz Microbiology Reports for the Last 24 Hours: Microbiology 09/20/23 18:05 Blood Blood Culture - Preliminary 09/20/23 22:00 Blood Blood Culture - Preliminary Constitutional Constitutional: mild distress and moderate distress *Routine Respiratory Exam Respiratory: Present rhonchi *Routine Cardiovascular Exam Cardiovascular: Present tachycardia Progress Note: A&P Assessment and plan (1) PAF (paroxysmal atrial fibrillation): Status: Acute (2) PNA (pneumonia): Status: Acute (3) Declining functional status: Status: Acute (4) Generalized weakness: Status: Acute (5) ILD (interstitial lung disease): Status: Chronic (6) Smoking greater than 30 pack years: Status: Chronic (7) COPD (chronic obstructive pulmonary disease): Status: Chronic (8) Tobacco abuse: Status: Chronic (9) Pericardial effusion: Status: Acute Assessment and Plan Assessment and Plan for All Diagnoses:: 1. Pericardial effusion now with early signs of tamponade including sustained tachycardia and drop in blood pressure -Recommend pericardiocentesis today 2. Worsening pneumonia with increasing white count -Antibiotic therapy per hospitalist, on vancomycin, nystatin and cefepime -Concern for aspiration pneumonia -Pulmonary consulted 3. Tachycardia with history of paroxysmal atrial fibrillation -Combination of pericardial effusion and pneumonia -CTA of the chest negative for pulmonary embolus 3. HFrEF -Diuretic therapy has been started with Lasix 40 mg twice daily -Echo EF 25% with akinetic septal and inferoseptal LV cerda. No significant valve disease. -Recommend left heart catheterization today -BNP 12,600 4. Elevated troponins/non-STEMI -EKG yesterday shows sinus rhythm with marked artifact limiting interpretation but appears to have poor R wave progression anteriorly without acute ST segment changes. Similar to 2020 tracing -Recommend left heart catheterization today in setting of reduced EF and akinetic wall motion abnormality 5. COPD and interstitial lung disease with tobacco use and history of aspergillosis -Cavitary lesion right lung apex, similar to previous study August 2022 6. Hypokalemia, resolved 7. Hypoproteinemia and hypoalbuminemia Plan pericardiocentesis and left heart catheterization today. Discussed with patient risk, benefits and procedure and she agrees to proceed. Pericardiocentesis performed without complications with drain placed to gravity. LHC today showed nonflow limiting CAD with myocardial LAD bridge of of no clinical significance. Ejection fraction estimated at 40% with hypokinetic anterior basal area. LVEDP estimated at less than 10 mmHg Will discontinue metoprolol. Start Entresto 24/26 mg twice daily tonight and if blood pressure allows then will start Coreg 3.125 mg twice daily tomorrow.
[2023-09-24 10:21] LABS: Lymphocytes % 20 % (10-50); Monocytes % 4 % (2-9); Neutrophils % 76 % (42-76); Total Cells Counted 100
[2023-09-24 10:24] LABS: Platelet Estimate Normal; RBC Morphology Normal
--- NOTE | 2023-09-24 10:42 | PC.NURSE ---
CALLED TO LET SONS KNOW ABOUT PERICARDIOCENTESIS. UPDATED ON POC.
--- NOTE | 2023-09-24 11:28 | PC.NURSE ---
GRANDDAUGHTER AT BEDSIDE AT THIS TIME. UPDATED ON POC. THIS NURSE HAD BROUGHT ORAL SWABS IN ROOM FOR ORAL CARE, BUT GRANDDAUGHTER STATES SHE WISHES TO PERFORM THE CARE. GRANDDAUGHTER HAS ALSO BRUSHED PT HAIR AND WASHED HER FACE. PT UNABLE TO SIGN CONSENT FOR PROCEDURES, STATES SHE WANTS HER SON TO WHEN HE GETS HERE TODAY.
--- NOTE | 2023-09-24 12:00 | IR_ITS ---
APPROVED REPORT Patient Location: Inpatient PROCEDURES Pericardiocentesis Placement of pericardial pigtail catheter into the pericardial space INDICATION Pericardial effusion, Cardiac tamponade Informed consent was obtained prior to the procedure. COMPLICATIONS None TECHNIQUE 1% lidocaine used anesthetize the subxiphoid process. The pericardial space was accessed using a long needle under fluoroscopic and ultrasound guidance. A wire was advanced into the pericardial space also confirmed by echocardiogram and fluoroscopy. A dilator was advanced followed by a pigtail catheter. There was extensive fibrous the hemorrhagic pericardial fluid which easily clogged the pigtail catheter. Because of this an 8 Swiss sheath was advanced into the pericardial space and used to aspirate larger debris. Eventually the pigtail catheter was placed back into the pericardial space and placed to gravity drain. 200 cc of hemorrhagic fibrous-like aspirate was removed. The pigtail catheter was sewn into place IMPRESSION Successful placement of pericardial drain Successful diagnostic and therapeutic pericardiocentesis PLAN 1. [place] drain overnight 2. Repeat echocardiogram Electronically signed by : Mg oBx MD 09/24/2023 13:51:13
[2023-09-24] MEDS: diphenhydrAMINE 50MG/ML VIAL 50 MG IV (12:39)
[2023-09-24] MEDS: VERAPAMIL 2.5MG/ML 2ML VIAL 2.5 MG IV (12:40)
[2023-09-24] MEDS: MIDAZOLAM HCL 1MG/1ML 5ML VIAL 1 MG IV (13:18)
[2023-09-24] MEDS: LIDOCAINE 1% 10ML MDV 20 ML IJ (13:27)
[2023-09-24] MEDS: FENTANYL 100MCG/2ML VIAL 25 MCG IV (13:28)
[2023-09-24] MEDS: HEPARIN 1,000 UNITS/500ML NS (CATH LAB) 3000 UNIT IV (13:29)
[2023-09-24] MEDS: NITROGLYCERIN 800MCG/8ML SYR (CATH LAB) 800 MCG IA (13:30)
--- NOTE | 2023-09-24 13:34 | EXP.PN ---
Subjective *Date: 09/24/23 *Time: 13:34 Interval history: Seen and examined at bedside. appears alert and awake today, says I feel alright Patient appears cachectic, but not in distress Exam Data for Last 24 hours Vital signs and Labs for Last 24 Hours: Temp Pulse Resp BP Pulse Ox O2 Del Method O2 Flow Rate 98.7 F 119 H 20 93/63 L 100 Nasal Cannula 3 09/24/23 11:47 09/24/23 11:47 09/24/23 11:47 09/24/23 11:47 09/24/23 11:47 09/24/23 11:47 09/24/23 11:47 Laboratory Results - last 24 hr 09/24/23 06:35: WBC 17.7 H D, RBC 3.70 L, Hgb 11.1 L, Hct 35.0 L, MCV 94.5, MCH 30.1, MCHC 31.8, RDW 15.1, Plt Count 265, MPV 9.1, Neut % (Auto) 82.6 H, Lymph % (Auto) 12.3, [place] % (Auto) 4.6, Eos % (Auto) 0.2, Baso % (Auto) 0.2, Neut # (Auto) 14.7 H, Lymph # (Auto) 2.2, [place] # (Auto) 0.8, Eos # (Auto) 0.0, Baso # (Auto) 0.0, Total Counted 100, Neutrophils % (Manual) 76, Lymphocytes % (Manual) 20, Monocytes % (Manual) 4, Platelet Estimate Normal, RBC Morphology Normal, Sodium 141 09/24/23 06:35: Sodium 142, Potassium 4.9 09/24/23 06:35: Potassium 5.0, Chloride 107 09/24/23 06:35: Chloride 107, Carbon Dioxide 31 H 09/24/23 06:35: Carbon Dioxide 32 H, Anion Gap 7.9 09/24/23 06:35: Anion Gap 8.0, BUN 11 D 09/24/23 06:35: BUN 11, Creatinine 0.80 09/24/23 06:35: Creatinine 0.80, Estimated Creat Clear 41 09/24/23 06:35: Estimated Creat Clear 41, Estimated GFR 72 09/24/23 06:35: Estimated GFR 72, Est GFR ( Amer) 87 09/24/23 06:35: Est GFR ( Amer) 87, Glucose 95 09/24/23 06:35: Glucose 94, Calcium 8.5 09/24/23 06:35: Calcium 8.6, Total Bilirubin 0.8, AST 24, ALT 16, Alkaline Phosphatase 86, Total Protein 6.0 L, Albumin 2.5 L, Globulin 3.5 H, Albumin/Globulin Ratio 0.7 L I & O for Last 24 hours: Intake & Output 09/21/23 09/22/23 09/23/23 09/24/23 23:59 23:59 23:59 23:59 Intake Total 1050 / 1360 3002 / 3002 795 / 795 Output Total 0 / 0 2550 / 2550 1250 / 1250 1200 / 1200 Balance 1050 / 1360 452 / 452 -455 / -455 -1200 / -1200 Weight 45.84 kg 48.308 kg 48.308 kg 47.854 kg Microbiology Reports for the Last 24 Hours: Microbiology 09/20/23 18:05 Blood Blood Culture - Preliminary 09/20/23 22:00 Blood Blood Culture - Preliminary Constitutional Constitutional: no acute distress *Routine HEENT Exam Head: Present normocephalic Eye: Present EOMI and PERRL ENT: Present mucous membranes moist *Routine Neck Exam Neck: Present supple; Absent lymphadenopathy *Routine Respiratory Exam Respiratory: Present CTA bilaterally *Routine Cardiovascular Exam Cardiovascular: Present RRR *Routine Abdominal Exam Abdominal: Present soft and normoactive bowel sounds; Absent tenderness *Routine Extremities Exam Extremities: Absent cyanosis, clubbing or edema *Routine Skin Exam Skin: Present warm; Absent rash *Routine Neurological Exam Neurological: Present alert and oriented X3 Assessment and Plan *Assessment and plan (1) Hypokalemia: Status: Acute Category: Medical Code(s): E87.6 - Hypokalemia (2) Diarrhea: Status: Acute Qualifiers: Diarrhea type: unspecified type Qualified Code(s): R19.7 - Diarrhea, unspecified Category: Medical Code(s): R19.7 - Diarrhea, unspecified (3) Generalized weakness: Status: Acute Category: Medical Code(s): R53.1 - Weakness (4) Dehydration, moderate: Status: Acute Category: Medical Code(s): E86.0 - Dehydration (5) COPD mixed type: Status: Chronic Category: Medical Code(s): J44.9 - Chronic obstructive pulmonary disease, unspecified (6) Smoking greater than 30 pack years: Status: Chronic Category: Social Hx Code(s): F17.210 - Nicotine dependence, cigarettes, uncomplicated (7) Pulmonary cachexia due to COPD: Status: Acute Category: Medical Code(s): J44.9 - Chronic obstructive pulmonary disease, unspecified; R64 - Cachexia (8) Severe protein-calorie malnutrition: Status: Acute Category: Medical Code(s): E43 - Unspecified severe protein-calorie malnutrition Plan 67-year-old female with extensive PMHx, including but not limited to COPD, with cachexia, smoker, ILD, Afib, of presented today c/o weakness, secondary to diarrhea. Patient arrived to the ER with an empty oxygen tank. Supposed to be on 2L . Dehydrated. Labs showed severe hypokalemia. CO2 was elevated. As well as lactic acid. Patient started on IV fluids. Magnesium and potassium being replaced. ER called for admission. Discussed findings with the provider. In the setting of chronic diarrhea and previous antibiotic regimen, C. difficile colitis concern has been raised. Blood culture was taking diarrhea panel ordered. Patient continues to require inpatient management. Plan as follows: -Severe hypokalemia, likely secondary to chronic diarrhea: - improved, no BM in past 2 days -Suspected C. difficile colitis -Generalized weakness -Severe protein calorie malnutrition continue IV fluid hydration. Normal saline at 50. PT/OT to eval and treat - patient and family wishes to go to Home with Nutrition consulted, supplementation with meals Lung opacities on CT abd check CXR start empirical Abx with vanc and cefepime check PCT check blood cultures - NGTD consult Pumonary Pleural efffusion elevated proBNP and troponin consult cardiology, monitor troponin order CTA chest to r/o PE - No PE -History of COPD, pulmonary aspergillosis,ILD: Elevated CO2 on admission. Monitor for O2 saturation O2 sat goal greater than 90%. Currently on 5 L nasal cannula oxygen douneb increased to every 4 hours scheduled Resume home nebulizer home regimen History of tobacco dependency:Nicotine patch as needed. Lovenox for DVT prophylaxis On Protonix for GI bleed protection and GERD Full code Plan for pericardiocentesis today, ok to dc Abx per pulmonaary, dc PO vanc
[2023-09-24] MEDS: EPINEPHrine 0.1 MG/ML 10ML SYRINGE (CRASH CART) 0.5 MG IV (14:01)
[2023-09-24] MEDS: IOPAMIDOL-370 (76%);100ML BOTTLE 45 ML IV (14:08)
--- NOTE | 2023-09-24 16:32 | PC.NURSE ---
PT B/P HAVE BEEN SOFT SINCE ARRIVAL BACK FROM PROCEDURE. CONTACTED AYE FUENTES TO UPDATE ON PT STATUS. NNO PLACED AT THIS TIME, JUST TO CONTINUE TO MONITOR. ALSO STATES OKAY TO HOLD ENTRESTO TONIGHT IF B/P REMAINS LOW.
--- NOTE | 2023-09-24 17:42 | PC.NURSE ---
PT HAS REMAINED VERY SLEEPY AND SOLEMN TODAY. EYES HAVE BEEN FIXED MAJORITY OF DAY. PT WILL RESPOND TO NAME AND SOMETIMES SHAKING. PT IS ABLE TO STATE NAME// AND WHERE SHE IS. PT UNDERWENT PROCEDURES TODAY, HAS TOLERATED WELL. CATH SITE TO R GROIN CDI. PERICARDIAL DRAIN PRESENT, DRAINING BRIGHT RED BLOODY FLUID. PT B/P REMAIN SOFT. I DO HAVE PT ON RA AT THIS TIME, O2 SAT REMAINS MID-HIGH 90S. PT RESPIRATIONS DO STILL SEEM TO BE LABORED. PT HAS REFUSED EATING ALL MEALS TODAY. SHE HAS TAKEN A COUPLE SIPS OF WATER, BUT DOES COUGH EACH TIME. AWAITING SPEECH THERAPY TO SEE PT TOMORROW. MULTIPLE FAMILY MEMBERS AT BEDSIDE T/O DAY. VERY SUPPORTIVE AND HELPFUL. PT SON, HARLAN, SEEMS TO BE THE MAIN CARE PROVIDER. HE STATED TODAY THAT HE KNOWS GOING HOME AFTER D/C MAY NOT BE AN OPTION , AND THEY ARE OKAY WITH THAT AT THIS TIME. HARLAN ALSO VOICED THAT HE IS INTERESTED IN SETTING UP A POA. WILL PASS THIS ON FOR DAY-SHIFT TO PASS ON TO CARE MANAGEMENT TOMORROW. PT HAS VOICED NO NEEDS OR CONCERNS T/O SHIFT. PURE WICK IN PLACE DRAINING BRIGHTER YELLOW URINE, ADEQUATE U/O. VSS.
[2023-09-24] MEDS: BUDESONIDE 0.5MG/2ML NEB 0.5 MG IH (17:53)
--- NOTE | 2023-09-24 18:40 | PC.NURSE ---
THIS NURSE NOTIFIED MD GREENWOOD OF PT CONDITION, INCLUDING B/P AND INCREASED RESPIRATORY EFFORT AND RESPIRATORY RATE (40). ASKED MD GREENWOOD IF HE WOULD COME LAY EYES ON PT. THE NIGHT-SHIFT HOSPITALIST WILL COME ASSESS PT. FAMILY UPDATED AT THIS TIME.
--- NOTE | 2023-09-24 19:36 | PC.NURSE ---
1918 DR GREENWOOD NOTIFIED OF PATIENTS RESP 44/MIN, TEMP 100.3 AX, 105/62 BP, HR 122/MIN, 02 SAT 100% ON 2LNC. 300 ML BLOODY DRAINAGE IN DRAINAGE BAG FROM PERICARDIALCENTESIS. DRSG TO RIGHT GROIN C/D/I. TO PLACE ORDERS AND HAVE NIGHT HOSPITALIST CHECK ON PATIENT.
--- NOTE | 2023-09-24 19:51 | PC.NURSE ---
1944 BANG Braswell NP NOTIFIED TO COME EVALUATE PATIENT. DR GREENWOOD PREVIOUSLY NOTIFIED. RADIOLOGY WILL NOT PERFORM CTs WITHOUT 20 GAUGE IV. HAS U/S GUIDED IV LFA. SENIOR MATERIALS SCIENTIST NOTIFIED.
[2023-09-24 19:58] LABS: Chloride 104 mmol/L (98-107); Potassium 4.9 mmoL/L (3.5-5.1); Sodium 141 mmol/L (136-145)
--- NOTE | 2023-09-24 20:00 | PC.NURSE ---
1954 BRICE Solorio NP HERE TO SEE PATIENT. ORDER FOE CXR. ALSO AWAITING ABG. ER STAFF TO DO U/S GUIDED IV 20 GAUGE ATTEMPTS TO OBTAIN ONE IS UNSUCCESSFUL.
[2023-09-24 20:01] LABS: Alanine Aminotransferase 25 U/L (12-78); Albumin Level 3.1 g/dl (3.5-5.0); Albumin/Globulin Ratio 0.8 (1.1-1.8); Alkaline Phosphatase 102 U/L (38-126); Anion Gap 11.9 mEq/L (5-15); Aspartate Amino Transferase 30 U/L (14-36); Bilirubin,Total 0.8 mg/dl (0.2-1.3); Blood Urea Nitrogen 14 mg/dl (7-17); Calcium 8.8 mg/dl (8.4-10.2); Carbon Dioxide 30 mmol/L (22.0-30.0); Creatinine Clearance Estimated 41 mL/min (50-200); Estimated Glomerular Filt Rate 62 ml/min (>60); GFR (African American) 76 ML/MIN (>60); Globulin 4.1 g/dL (1.3-3.2); Glucose 198 mg/dl (74-100); Total Protein,Serum 7.2 g/dl (6.3-8.2)
--- NOTE | 2023-09-24 20:01 | XR_ITS ---
PROCEDURE INFORMATION: Exam: XR Chest Exam date and time: 09/24/2023 8:03 PM Age: 67 years old Clinical indication: Shortness of breath; Prior surgery; Surgery date: Post-operative (0-2 days); Surgery type: Cardiac cath today; Additional info: SOB TECHNIQUE: Imaging protocol: Radiologic exam of the chest. Views: 1 view. COMPARISON: CT ANGIO CHEST PE PROTOCOL 09/23/2023 3:04 PM FINDINGS: Tubes, catheters and devices: Curve catheter overlies the cardiac silhouette. Lungs: Right apical pleural thickening combined with near-complete right upper lobe atelectasis and elevation of the minor fissure could be secondary to endobronchial lesion with atelectasis. Pleural spaces: See Lungs finding. Heart/Mediastinum: Unremarkable. No cardiomegaly. Bones/joints: Unremarkable. IMPRESSION: Right apical pleural thickening combined with near-complete right upper lobe atelectasis and elevation of the minor fissure could be secondary to endobronchial lesion with atelectasis. Recommend pulmonary consultation.
--- NOTE | 2023-09-24 20:05 | PC.NURSE ---
2005 rachel/dusty pharmacict notified re vanc consult.
--- NOTE | 2023-09-24 20:06 | EXP.EVENT.NO ---
Discussed case with Dr. Box cardiology regarding Tachycardia, Hypotension. Pericardial drain is in place. I also ordered PE CTA chest, VBG and have paged out to pulmonary as well.
--- NOTE | 2023-09-24 20:19 | PC.NURSE ---
2015 DR KAT ORDER TO TRANSFER TO STEPDOWN AND START LEVOPHED DRIP.
--- NOTE | 2023-09-24 20:41 | PC.NURSE ---
2011: Dr. Box called to inquire about patient. Informed him that patient's BP: 76/42, HR: 138. Patient is Sinus Tachycardic on the monitor. Informed MD patient has scattered crackles noted throughout lung rios. Patient's pericardial drain is intact and draining; 300ml blood noted in bag. Patient's breathing is labored. Informed MD portable CXR had been done; MD reviewed film. Informed MD that R.T. is at bedside attempting an ABG. MD gave order to move patient to Stepdown unit and place on a Levophed gtt. I informed MD that Battery Assembler [employer] GINA Mandel was speaking with family about Code status. Dr. Box stated to cancel CTA and IVF bolus that GINA Mandel ordered. Dr. Box asked that I update family of our conversation. Son's updated on Dr. Box's recommendations. Son's state they are waiting on a brother to arrive before making any decisions about Code Status. I spoke with ESTELA Estevez receiving Stepdown RN and informed her of Dr. Box's orders. Also, introduced Zenaida to patient's son and made her aware of plan to disuss Code status when brother arrives.
--- NOTE | 2023-09-24 21:07 | PC.NURSE ---
2049 PATIENT TRANSFERED TO STEPDOWN VIA BED. ALL BELONGINGS WITH PATIENT. REPORT GIVEN TO MARIE PALMER.
[2023-09-24] MEDS: NOREPINEPHRINE BITARTRATE/D5W 8 MG/250 ML PLAST..BAG 28.129999999999999 MG IV (21:14)
[2023-09-24 21:44] LABS: VBG Base Excess 3.5 mmol/L (-2.4-2.3); VBG HCO3 27.5 mmol/L (23-30); VBG Oxygen Saturation 58.5 % (50-70); VBG PCO2 41.1 mmol/L (35-51); VBG PH 7.44 mmol/L (7.31-7.41); VBG PO2 27.5 mmol/L (28-40); VBG Total CO2 28.8 mmol/L (23-27)
--- NOTE | 2023-09-24 21:55 | P.PN_ITS ---
Acute Rapid Response Note Subjective Date Responded: 09/24/23 Time Responded: 07:34 Provider Note: RN called for patient assessment. Patient found hypotensive and tachycardic. unresponsive and tachypneic patient underwent earlier for pericardiocentesis. 300ml blood seen in the drainage bag. HH ordered STAT. Hb 12. stable bedside US performed by ER, showed minimal pericardial effusion. heart presumably hyperdynamic. CXR confirm drainage patency. Right upper lung cavity with total atelectasis. patient had previuos Hx of aspergillosis. Suspected that is the root case of her pericardial effusion. 1 unit on blood ordered and started on levophed. moved to ICU. While interacting with sons, explained the critical of the patient status and the possibility deteriorate her even more. verifying the code status they all three agreed to do intubate patient and proceed with comfort measure only. patient was made DNR/DNI. Hospice consult place. Objective Findings: Vital Signs - Last 4 Hours Temperature 100.3 F H 09/24/23 19:15 Temperature Source Axillary 09/24/23 19:15 Pulse Rate 130 H 09/24/23 20:15 Respiratory Rate 40 H 09/24/23 20:15 Blood Pressure 76/57 L 09/24/23 20:15 Blood Pressure Mean 63 09/24/23 20:15 Blood Pressure Source Automatic Cuff 09/24/23 20:15 Blood Pressure Position Supine 09/24/23 20:15 02 Sat by Pulse Oximetry 100 09/24/23 20:15 Oxygen Delivery Method Nasal Cannula 09/24/23 21:00 Oxygen Flow Rate (LPM) 2 09/24/23 20:15 Lab Results for Past 12 Hours 09/24/23 21:10: Hgb 12.0 L, Hct 38.0, Blood Type O Positive, Crossmatch (AHG) See Detail 09/24/23 20:22: VBG pH 7.44 H, VBG pCO2 41.1, VBG pO2 27.5 L, VBG HCO3 27.5, VBG Total CO2 28.8 H, VBG O2 Saturation 58.5, VBG Base Excess 3.5 H 09/24/23 19:40: Sodium 141, Potassium 4.9, Chloride 104, Carbon Dioxide 30, Anion Gap 11.9, BUN 14 D, Creatinine 0.90, Estimated Creat Clear 41, Estimated GFR 62, Est GFR ( Amer) 76, Glucose 198 H D, Calcium 8.8, Total Bilirubin 0.8, AST 30, ALT 25 D, Alkaline Phosphatase 102, Total Protein 7.2, Albumin 3.1 L D, Globulin 4.1 H, Albumin/Globulin Ratio 0.8 L 09/24/23 06:35: Total Counted 100, Neutrophils % (Manual) 76, Lymphocytes % (Man ual) 20, Monocytes % (Manual) 4, Platelet Estimate Normal, RBC Morphology Normal My Orders Category Date Time Status Blood transfusion [Red Blood Cells] Routine BBK 09/24/23 21:10 Received Type and Screen Stat BBK 09/24/23 21:10 Received Central line,3 lumen cath tray ONCE Care 09/24/23 21:17 Active Saline Lock Insertion Once Care 09/24/23 21:16 Completed Consult to Hospice [CONS] Routine Cons 09/24/23 21:36 Active Chest XR -- portable [XR chest portable] Stat Exams 09/24/23 20:01 Completed HH [Hemoglobin and Hematocrit] Stat Lab 09/24/23 21:10 Completed 0.9 % Sodium Chloride 1000ML [Sod Chlor 0.9% 1000mL Bag Med 09/24/23 20:01 Discontinued ] 500 ml IV 999 mls/hr 0.9 % Sodium Chloride [Sod Chlor 0.9% 250mL Bag] 250 ml Med 09/24/23 21:30 Stop Req IV 25 mls/hr 0.9 % Sodium Chloride [Sodium Chloride 0.9% 10mL Vial] Med 09/24/23 21:52 Ordered 10 ml IV NEEDED PRN LORazepam [Ativan 2mg/mL vial] Med 09/24/23 21:52 Ordered 1 mg IV Q4HP PRN Morphine Sulfate [Morphine 2mg/mL syringe] Med 09/24/23 21:52 Ordered 2 mg IV Q6HP PRN Norepinephrine Bitartrate/D5w [Norepinephrine 8mg/250mL Med 09/24/23 20:21 Stop Req -D5W Premix] 8 mg in 250 ml IV 8 mcg/min Code Status Routine Oth 09/24/23 21:37 Ordered VBG [Venous Blood Gas] Stat RT 09/24/23 20:22 Completed Radiology Findings #1: Xray Reviewed: Chest Image Reviewed: Yes I reviewed the patient's radiology results and Yes I reviewed the patient's radiology image XR Narrative: IMPRESSION: Right apical pleural thickening combined with near-complete right upper lobe atelectasis and elevation of the minor fissure could be secondary to endobronchial lesion with atelectasis. Recommend pulmonary consultation. Rapid Response Exam minimally responsive. General General appearance: appears intoxicated and cachectic Head Head exam: atraumatic and normocephalic Eye Eye exam: Present normal appearance ENT ENT exam: Present normal exam and mucous membranes moist Neck Neck exam: Present normal inspection and full ROM Chest Chest inspection: Present symmetric chest wall rise Respiratory Respiratory exam: Present accessory muscle use and prolonged expiratory phase Expanded Respiratory Exam Location: Right: decreased breath sounds and Upper: decreased breath sounds Cardiovascular Cardiovascular exam: Present normal rhythm, tachycardia, +S1 and +S2 Abdominal Exam Abdominal exam: Present soft; Absent distention or tenderness Extremities Exam Extremities exam: Present normal inspection RR Procedures/Assess/Plan Additional Bedside Procedures Other: US Physician Consults Physician Consulted: Cardiology Time consultation 1: 08:00 (1) PAF (paroxysmal atrial fibrillation): Status: Acute (2) PNA (pneumonia): Status: Acute Qualifiers: Laterality: bilateral Lung location: lower lobe of lung Pneumonia type: due to unspecified organism Qualified Code(s): J18.9 - Pneumonia, unspecified organism (3) Declining functional status: Status: Acute (4) Generalized weakness: Status: Acute (5) ILD (interstitial lung disease): Status: Chronic (6) Smoking greater than 30 pack years: Status: Chronic (7) COPD (chronic obstructive pulmonary disease): Status: Chronic Qualifiers: COPD type: chronic bronchitis Chronic bronchitis type: unspecified Qualified Code(s): J42 - Unspecified chronic bronchitis (8) Tobacco abuse: Status: Chronic (9) Pericardial effusion: Status: Acute Assessment and plan all Dx Assessment and Plan for all problems:: family would like to proceed with comfort measure only. made patient DNR/DNI.
--- NOTE | 2023-09-24 21:57 | PC.NURSE ---
Patient's family discussed at length and decided to transition to comfort measures, no intubation and no central line. Form filled out and placed in chart for MD signature.
[2023-09-24] MEDS: MORPHINE 2MG/ML SYRINGE 2 MG IV (22:05)
[2023-09-24] MEDS: LORazepam 2MG/ML VIAL 1 MG IV (22:52)
[2023-09-25] VITALS (7 sets, daily range): BP systolic 63–85; BP diastolic 35–53; PULSE 104–119; RESP 11–20; TEMP 36.3–37.2; O2SAT 95–100
[2023-09-25] MEDS: LORazepam 2MG/ML VIAL 1 MG IV ×3 (03:13→21:10)
[2023-09-25] MEDS: MORPHINE 2MG/ML SYRINGE 2 MG IV ×4 (05:06→23:51)
--- NOTE | 2023-09-25 10:00 | EXP.PULM.PN ---
Subjective *Date: 09/25/23 *Time: 10:00 Pulmonology Exam Inpatient Vital signs and Labs for Last 24 Hours: Temp Pulse Resp BP Pulse Ox O2 Del Method O2 Flow Rate 97.4 F L 104 H 20 70/45 L 99 Nasal Cannula 4 09/25/23 08:00 09/25/23 08:00 09/25/23 08:00 09/25/23 08:00 09/25/23 08:00 09/25/23 08:51 09/25/23 08:00 Laboratory Results - last 24 hr 09/24/23 06:35: Total Counted 100, Neutrophils % (Manual) 76, Lymphocytes % (Manual) 20, Monocytes % (Manual) 4, Platelet Estimate Normal, RBC Morphology Normal 09/24/23 19:40: Sodium 141, Potassium 4.9, Chloride 104, Carbon Dioxide 30, Anion Gap 11.9, BUN 14 D, Creatinine 0.90, Estimated Creat Clear 41, Estimated GFR 62, Est GFR ( Amer) 76, Glucose 198 H D, Calcium 8.8, Total Bilirubin 0.8, AST 30, ALT 25 D, Alkaline Phosphatase 102, Total Protein 7.2, Albumin 3.1 L D, Globulin 4.1 H, Albumin/Globulin Ratio 0.8 L 09/24/23 20:22: VBG pH 7.44 H, VBG pCO2 41.1, VBG pO2 27.5 L, VBG HCO3 27.5, VBG Total CO2 28.8 H, VBG O2 Saturation 58.5, VBG Base Excess 3.5 H 09/24/23 21:10: Hgb 12.0 L, Hct 38.0, Blood Type O Positive, Antibody Screen Negative, Crossmatch (AHG) See Detail I & O for Labs for Last 24 Hours: Intake & Output 09/22/23 09/23/23 09/24/23 09/25/23 23:59 23:59 23:59 23:59 Intake Total 3002 / 3002 795 / 795 20.16 / 20.16 Output Total 2550 / 2550 1250 / 1250 1800 / 1800 200 / 200 Balance 452 / 452 -455 / -455 -1779.84 / -1779.84 -200 / -200 Weight 106 lb 8 oz 106 lb 8.014 oz 105 lb 8 oz Microbiology Reports for the Last 24 Hours: Microbiology 09/20/23 18:05 Blood Blood Culture - Preliminary 09/20/23 22:00 Blood Blood Culture - Preliminary Assessment and Plan *Assessment and plan (1) COPD mixed type: Status: Chronic Category: Medical Code(s): J44.9 - Chronic obstructive pulmonary disease, unspecified (2) Acute and chronic respiratory failure with hypoxia: Status: Acute Category: Medical Code(s): J96.21 - Acute and chronic respiratory failure with hypoxia (3) Fungal pneumonia: Status: Chronic Category: Medical Code(s): J16.8 - Pneumonia due to other specified infectious organisms; B49 - Unspecified mycosis Plan Ms. Yuan is a 67-year-old female history of COPD, chronic hypoxic respiratory failure, right upper lobe cavitary lesion positive serology for Aspergillus, will do bronchoscopy transbronchial biopsy, initial itraconazole 200 mg twice daily in October 2022 he was last seen in pulmonary clinic presented to the ER on 09/20/2023 complaining of worsening weakness and diarrhea. Patient also been treating with levofloxacin for lower extremity cellulitis. Patient since admission is being treated for diarrhea, C. difficile colitis, pneumonia for noted pulm infiltrates with vancomycin and cefepime. CTA on this admission no evidence of pulmonary embolism. Improving right upper lobe cavitary lesion. No other dense consolidation or airspace disease noted. Echocardiogram severely reduced LV systolic function with a EF of 25%. Moderate pericardial effusion status post pericardiocentesis. Plan: DuoNebs every 6 hours scheduled along with Pulmicort every 12 scheduled Continue oxygen supplementation to maintain O2 saturation goal of 90% and above Antibiotics can be weaned to Augmentin to complete a total of 7-day course from pulmonary standpoint fpr presumed Pneumoia given no concerning evidence of airspace disease noted We will hold off on reinitiating itraconazole at this point of time given improvement in her cavitary lung disease, will follow as an outpatient basis Follow with cardiology recommendations # Thank you for involving pulmonary in this patient care. Will continue to follow.
--- NOTE | 2023-09-25 11:15 | EXP.PN ---
Subjective *Date: 09/25/23 *Time: 11:15 Interval history: Patient became hypotensive, Tachypneic over night, family requested to make patient comfort care and did not want to start IV pressors support. Exam Data for Last 24 hours Vital signs and Labs for Last 24 Hours: Temp Pulse Resp BP Pulse Ox O2 Del Method O2 Flow Rate 97.4 F L 104 H 20 70/45 L 99 Nasal Cannula 4 09/25/23 08:00 09/25/23 08:00 09/25/23 08:00 09/25/23 08:00 09/25/23 08:00 09/25/23 10:50 09/25/23 10:50 Laboratory Results - last 24 hr 09/24/23 19:40: Sodium 141, Potassium 4.9, Chloride 104, Carbon Dioxide 30, Anion Gap 11.9, BUN 14 D, Creatinine 0.90, Estimated Creat Clear 41, Estimated GFR 62, Est GFR ( Amer) 76, Glucose 198 H D, Calcium 8.8, Total Bilirubin 0.8, AST 30, ALT 25 D, Alkaline Phosphatase 102, Total Protein 7.2, Albumin 3.1 L D, Globulin 4.1 H, Albumin/Globulin Ratio 0.8 L 09/24/23 20:22: VBG pH 7.44 H, VBG pCO2 41.1, VBG pO2 27.5 L, VBG HCO3 27.5, VBG Total CO2 28.8 H, VBG O2 Saturation 58.5, VBG Base Excess 3.5 H 09/24/23 21:10: Hgb 12.0 L, Hct 38.0, Blood Type O Positive, Antibody Screen Negative, Crossmatch (AHG) See Detail I & O for Last 24 hours: Intake & Output 09/22/23 09/23/23 09/24/23 09/25/23 23:59 23:59 23:59 23:59 Intake Total 3002 / 3002 795 / 795 20.16 / 20.16 Output Total 2550 / 2550 1250 / 1250 1800 / 1800 200 / 200 Balance 452 / 452 -455 / -455 -1779.84 / -1779.84 -200 / -200 Weight 48.308 kg 48.308 kg 47.854 kg Microbiology Reports for the Last 24 Hours: Microbiology 09/20/23 18:05 Blood Blood Culture - Preliminary 09/20/23 22:00 Blood Blood Culture - Preliminary Constitutional Comments: lethargic *Routine HEENT Exam Head: Present normocephalic Eye: Present EOMI and PERRL ENT: Present mucous membranes moist *Routine Neck Exam Neck: Present supple; Absent lymphadenopathy *Routine Respiratory Exam Respiratory: Present CTA bilaterally *Routine Cardiovascular Exam Cardiovascular: Present RRR *Routine Abdominal Exam Abdominal: Present soft and normoactive bowel sounds; Absent tenderness *Routine Extremities Exam Extremities: Absent cyanosis, clubbing or edema *Routine Skin Exam Skin: Present warm; Absent rash *Routine Neurological Exam Comments: not following commands Assessment and Plan *Assessment and plan (1) Hypokalemia: Status: Acute Category: Medical Code(s): E87.6 - Hypokalemia (2) Diarrhea: Status: Acute Qualifiers: Diarrhea type: unspecified type Qualified Code(s): R19.7 - Diarrhea, unspecified Category: Medical Code(s): R19.7 - Diarrhea, unspecified (3) Generalized weakness: Status: Acute Category: Medical Code(s): R53.1 - Weakness (4) Dehydration, moderate: Status: Acute Category: Medical Code(s): E86.0 - Dehydration (5) COPD mixed type: Status: Chronic Category: Medical Code(s): J44.9 - Chronic obstructive pulmonary disease, unspecified (6) Smoking greater than 30 pack years: Status: Chronic Category: Social Hx Code(s): F17.210 - Nicotine dependence, cigarettes, uncomplicated (7) Pulmonary cachexia due to COPD: Status: Acute Category: Medical Code(s): J44.9 - Chronic obstructive pulmonary disease, unspecified; R64 - Cachexia (8) Severe protein-calorie malnutrition: Status: Acute Category: Medical Code(s): E43 - Unspecified severe protein-calorie malnutrition Plan 67-year-old female with extensive PMHx, including but not limited to COPD, with cachexia, smoker, ILD, Afib, of presented today c/o weakness, secondary to diarrhea. Patient arrived to the ER with an empty oxygen tank. Supposed to be on 2L . Dehydrated. Labs showed severe hypokalemia. CO2 was elevated. As well as lactic acid. Patient started on IV fluids. Magnesium and potassium being replaced. ER called for admission. Discussed findings with the provider. In the setting of chronic diarrhea and previous antibiotic regimen, C. difficile colitis concern has been raised. Blood culture was taking diarrhea panel ordered. Patient continues to require inpatient management. Plan as follows: Plan for Hospice and comfort care, Hospice consulted
--- NOTE | 2023-09-25 14:03 | PC.NURSE ---
Family at bedside with patient. Family reports that patient started to try to move arms/legs appearing uncomfortable/agitated. Upon assessment patient with labored breathing, turning head back and forth, and grabbing at sheets. PRN Lorazepam given IV per order. Much discussion with the family about the effects, verbalized understanding. Morphine given earlier to keep patient comfortable per MD order, at this time patient appears to be resting comfortably.
--- NOTE | 2023-09-25 18:00 | PC.NURSE ---
Patient is in bed with family at bedside. PRN morphine given to patient as she shows signs/symptoms of pain, extending arms into air and shaking.
--- NOTE | 2023-09-25 22:43 | PC.NURSE ---
ROUNDED ON PT AT 1999 NO NEEDS AT THIS TIME
--- NOTE | 2023-09-26 02:40 | PC.NURSE ---
0100 FAMILY WENT HOME. PATIENT TURNED AND REPOSITIONED Q 2 HRS. HEEL PADS TO PRESSURE AREA TO HEELS (UNSTAGEABLE). MULTIPLE PILLOWS USED FOR SUPPORT. OPENS EYES NOW TO NAME. FOLLOWS SIMPLE COMMANDS. COMFORT MEASURES ONLY. PUREWICK IN USE. SCANT UOP. 02 AT 4LNC.
[2023-09-26] MEDS: MORPHINE 2MG/ML SYRINGE 2 MG IV ×3 (07:10→23:32)
[2023-09-26 08:00] VITALS: O2SAT 97
[2023-09-26 08:17] VITALS: BP 80/64; PULSE 96; RESP 18; TEMP 36.4; O2SAT 93
[2023-09-26] MEDS: LORazepam 2MG/ML VIAL 1 MG IV ×2 (11:46→23:57)
--- NOTE | 2023-09-26 12:29 | EXP.PN ---
Subjective *Date: 09/26/23 *Time: 12:29 Interval history: Patient became hypotensive, Tachypneic over night, family requested to make patient comfort care and did not want to start IV pressors support. Exam Data for Last 24 hours Vital signs and Labs for Last 24 Hours: Temp Pulse Resp BP Pulse Ox O2 Del Method O2 Flow Rate 97.6 F 96 H 18 80/64 L 93 L Nasal Cannula 4 09/26/23 08:17 09/26/23 08:17 09/26/23 08:17 09/26/23 08:17 09/26/23 08:17 09/26/23 10:58 09/26/23 10:58 I & O for Last 24 hours: Intake & Output 09/23/23 09/24/23 09/25/23 09/26/23 23:59 23:59 23:59 23:59 Intake Total 795 / 795 20.16 / 20.16 Output Total 1250 / 1250 1800 / 1800 200 / 200 Balance -455 / -455 -1779.84 / -1779.84 -200 / -200 Weight 48.308 kg 47.854 kg Constitutional Constitutional: no acute distress *Routine HEENT Exam Head: Present normocephalic Eye: Present EOMI and PERRL ENT: Present mucous membranes moist *Routine Neck Exam Neck: Present supple; Absent lymphadenopathy *Routine Respiratory Exam Respiratory: Present CTA bilaterally *Routine Cardiovascular Exam Cardiovascular: Present RRR *Routine Abdominal Exam Abdominal: Present soft and normoactive bowel sounds; Absent tenderness *Routine Extremities Exam Extremities: Absent cyanosis, clubbing or edema *Routine Skin Exam Skin: Present warm; Absent rash *Routine Neurological Exam Neurological: Present alert and oriented X3 Assessment and Plan *Assessment and plan (1) Hypokalemia: Status: Acute Category: Medical Code(s): E87.6 - Hypokalemia (2) Diarrhea: Status: Acute Qualifiers: Diarrhea type: unspecified type Qualified Code(s): R19.7 - Diarrhea, unspecified Category: Medical Code(s): R19.7 - Diarrhea, unspecified (3) Generalized weakness: Status: Acute Category: Medical Code(s): R53.1 - Weakness (4) Dehydration, moderate: Status: Acute Category: Medical Code(s): E86.0 - Dehydration (5) COPD mixed type: Status: Chronic Category: Medical Code(s): J44.9 - Chronic obstructive pulmonary disease, unspecified (6) Smoking greater than 30 pack years: Status: Chronic Category: Social Hx Code(s): F17.210 - Nicotine dependence, cigarettes, uncomplicated (7) Pulmonary cachexia due to COPD: Status: Acute Category: Medical Code(s): J44.9 - Chronic obstructive pulmonary disease, unspecified; R64 - Cachexia (8) Severe protein-calorie malnutrition: Status: Acute Category: Medical Code(s): E43 - Unspecified severe protein-calorie malnutrition Plan 67-year-old female with extensive PMHx, including but not limited to COPD, with cachexia, smoker, ILD, Afib, of presented today c/o weakness, secondary to diarrhea. Patient arrived to the ER with an empty oxygen tank. Supposed to be on 2L . Dehydrated. Labs showed severe hypokalemia. CO2 was elevated. As well as lactic acid. Patient started on IV fluids. Magnesium and potassium being replaced. ER called for admission. Discussed findings with the provider. In the setting of chronic diarrhea and previous antibiotic regimen, C. difficile colitis concern has been raised. Blood culture was taking diarrhea panel ordered. Patient continues to require inpatient management. Plan as follows: Plan for Hospice and comfort care, Hospice consulted
--- NOTE | 2023-09-26 16:35 | PC.NURSE ---
PT RESTING COMFORTABLY AT THIS TIME AND HAS BEEN TURNED AND REPOSITIONED. FAMILY IN ROOM. PT HAS BEEN MORE AWAKE THIS SHIFT AND RESPONDS TO YES OR NO QUESTIONS. PT HAS BEEN MEDICATED PER MAR FOR DISCOMFORT. DISCOLORATION NOTED TO BILATERAL HEELS. LUNG SOUNDS DIMINISHED ON BOTH SIDES AND HAS SHALLOW RESPIRATIONS. BLOODY DRAINAGE NOTED IN PERICARDIAL DRAIN. WILL CONTINUE TO MONITOR.
[2023-09-26 20:00] VITALS: BP 86/62; PULSE 104; RESP 17; TEMP 37.2; O2SAT 96
[2023-09-27] MEDS: MORPHINE 2MG/ML SYRINGE 2 MG IV ×4 (04:16→20:13)
[2023-09-27 08:06] VITALS: BP 78/40; PULSE 103; RESP 16; TEMP 36.4; O2SAT 97
[2023-09-27] MEDS: LORazepam 2MG/ML VIAL 1 MG IV (08:43)
[2023-09-27 10:30] VITALS: O2SAT 97
--- NOTE | 2023-09-27 14:47 | EXP.PN ---
Subjective *Date: 09/27/23 *Time: 14:47 Exam Data for Last 24 hours Vital signs and Labs for Last 24 Hours: Temp Pulse Resp BP Pulse Ox O2 Del Method O2 Flow Rate 97.6 F 103 H 16 78/40 L 97 Nasal Cannula 4 09/27/23 08:06 09/27/23 08:06 09/27/23 08:06 09/27/23 08:06 09/27/23 10:30 09/27/23 13:00 09/27/23 13:00 I & O for Last 24 hours: Intake & Output 09/24/23 09/25/23 09/26/23 09/27/23 23:59 23:59 23:59 23:59 Intake Total 20.16 / 20.16 Output Total 1800 / 1800 200 / 200 300 / 300 350 / 350 Balance -1779.84 / -1779.84 -200 / -200 -300 / -300 -350 / -350 Weight 47.854 kg Assessment and Plan *Assessment and plan (1) Hypokalemia: Status: Acute Category: Medical Code(s): E87.6 - Hypokalemia (2) Diarrhea: Status: Acute Qualifiers: Diarrhea type: unspecified type Qualified Code(s): R19.7 - Diarrhea, unspecified Category: Medical Code(s): R19.7 - Diarrhea, unspecified (3) Generalized weakness: Status: Acute Category: Medical Code(s): R53.1 - Weakness (4) Dehydration, moderate: Status: Acute Category: Medical Code(s): E86.0 - Dehydration (5) COPD mixed type: Status: Chronic Category: Medical Code(s): J44.9 - Chronic obstructive pulmonary disease, unspecified (6) Smoking greater than 30 pack years: Status: Chronic Category: Social Hx Code(s): F17.210 - Nicotine dependence, cigarettes, uncomplicated (7) Pulmonary cachexia due to COPD: Status: Acute Category: Medical Code(s): J44.9 - Chronic obstructive pulmonary disease, unspecified; R64 - Cachexia (8) Severe protein-calorie malnutrition: Status: Acute Category: Medical Code(s): E43 - Unspecified severe protein-calorie malnutrition Plan 67-year-old female with extensive PMHx, including but not limited to COPD, with cachexia, smoker, ILD, Afib, of presented today c/o weakness, secondary to diarrhea. Patient arrived to the ER with an empty oxygen tank. Supposed to be on 2L . Dehydrated. Labs showed severe hypokalemia. CO2 was elevated. As well as lactic acid. Patient started on IV fluids. Magnesium and potassium being replaced. ER called for admission. Discussed findings with the provider. In the setting of chronic diarrhea and previous antibiotic regimen, C. difficile colitis concern has been raised. Blood culture was taking diarrhea panel ordered. Patient continues to require inpatient management. Plan as follows: Plan for Hospice and comfort care, Hospice consulted and following
--- NOTE | 2023-09-27 17:26 | PC.NURSE ---
pt has received morphine x1 since care was assumed by this nurse. pt eyes are noted to be open, no blinking noted. per family pt was attempting to move in bed on her own and appeared uncomfortable. pt was medicated for pain. upon turning pt approx 1 hour following admin of med pt was noted to moan in pain when right leg was floated on pillow. (bue and ble were elevated on pillows as well ) pt is on 4 lpm, pt has purwick in place. family is present at bedside. lungs are diminished t/o. bowel sounds are hypoactive.
[2023-09-27 20:00] VITALS: BP 98/61; PULSE 103; RESP 10; TEMP 36.8; O2SAT 94
[2023-09-28] MEDS: MORPHINE 2MG/ML SYRINGE 2 MG IV ×6 (00:18→21:31)
--- NOTE | 2023-09-28 05:10 | PC.NURSE ---
Patient has rested comfortably this shift. Did get a bath this shift. Patient was turned every 2hrs. Patient was not responsive when moved. Son remains at bedside
--- NOTE | 2023-09-28 07:40 | PC.NURSE ---
pt was increasingly restless this morning upon assessment. I gave her prn medication. family is @ bedside
[2023-09-28 08:00] VITALS: BP 128/80; PULSE 107; RESP 16; TEMP 36.5; O2SAT 98
--- NOTE | 2023-09-28 11:45 | EXP.PN ---
Subjective *Date: 09/28/23 *Time: 11:45 Interval history: I was reported that patient is having rapid breathing spells, she is under hospice care and family is at bedside, study hall supervisor is also on the floor Exam Data for Last 24 hours Vital signs and Labs for Last 24 Hours: Temp Pulse Resp BP Pulse Ox O2 Del Method O2 Flow Rate 97.7 F 107 H 16 128/80 98 Nasal Cannula 4 09/28/23 08:00 09/28/23 08:00 09/28/23 08:00 09/28/23 08:00 09/28/23 08:00 09/28/23 09:00 09/28/23 08:00 I & O for Last 24 hours: Intake & Output 09/25/23 09/26/23 09/27/23 09/28/23 23:59 23:59 23:59 23:59 Output Total 200 / 200 300 / 300 350 / 350 Balance -200 / -200 -300 / -300 -350 / -350 Microbiology Reports for the Last 24 Hours: Microbiology 09/20/23 22:00 Blood Blood Culture - Final 09/20/23 18:05 Blood Blood Culture - Final Assessment and Plan *Assessment and plan (1) Hypokalemia: Status: Acute Category: Medical Code(s): E87.6 - Hypokalemia (2) Diarrhea: Status: Acute Qualifiers: Diarrhea type: unspecified type Qualified Code(s): R19.7 - Diarrhea, unspecified Category: Medical Code(s): R19.7 - Diarrhea, unspecified (3) Generalized weakness: Status: Acute Category: Medical Code(s): R53.1 - Weakness (4) Dehydration, moderate: Status: Acute Category: Medical Code(s): E86.0 - Dehydration (5) COPD mixed type: Status: Chronic Category: Medical Code(s): J44.9 - Chronic obstructive pulmonary disease, unspecified (6) Smoking greater than 30 pack years: Status: Chronic Category: Social Hx Code(s): F17.210 - Nicotine dependence, cigarettes, uncomplicated (7) Pulmonary cachexia due to COPD: Status: Acute Category: Medical Code(s): J44.9 - Chronic obstructive pulmonary disease, unspecified; R64 - Cachexia (8) Severe protein-calorie malnutrition: Status: Acute Category: Medical Code(s): E43 - Unspecified severe protein-calorie malnutrition Plan 67-year-old female with extensive PMHx, including but not limited to COPD, with cachexia, smoker, ILD, Afib, of presented today c/o weakness, secondary to diarrhea. Patient arrived to the ER with an empty oxygen tank. Supposed to be on 2L . Dehydrated. Labs showed severe hypokalemia. CO2 was elevated. As well as lactic acid. Patient started on IV fluids. Magnesium and potassium being replaced. ER called for admission. Discussed findings with the provider. In the setting of chronic diarrhea and previous antibiotic regimen, C. difficile colitis concern has been raised. Blood culture was taking diarrhea panel ordered. Patient continues to require inpatient management. Plan as follows: Plan for Hospice and comfort care, Hospice consulted and following
--- NOTE | 2023-09-28 17:53 | PC.NURSE ---
nursing has continued to turn and reposition patient, family has been at bedside all day. I emptied 200cc out of the drain in pts chest. she is comfortable.
[2023-09-28 20:00] VITALS: TEMP 37.4; O2SAT 91
[2023-09-28] MEDS: LORazepam 2MG/ML VIAL 1 MG IV (20:55)
--- NOTE | 2023-09-28 21:56 | PC.NURSE ---
Patient have periods of apnea with hyperventilation 34bpm; spoke with Hospitalist NICK Nation requested I call Hospice on-call. Spoke with Nurse Aggie Fischer RN - gave report and she recvd v.o. from on-call Hospice Physician to increase Morphine to 4mg IVP every 6 hours scheduled and 4mg IVP every 2 hours PRN for SOA & Pain also add Ativan 1mg IVP every 6 hours scheduled and to continue Ativan 1mg IVP every 4 hours PRN. Hospitalist NICK Nation notified.
--- NOTE | 2023-09-29 | P.DN_ITS ---
Pronouncement Note Date and Time of Date of : 09/28/23 Time of : 23:35 PCOD Preliminary cause of : Cardiopulmonary arrest Contributing Factors (1) Hypokalemia: (2) Diarrhea: (3) Generalized weakness: (4) Dehydration, moderate: (5) COPD mixed type: (6) Smoking greater than 30 pack years: (7) Pulmonary cachexia due to COPD: (8) Severe protein-calorie malnutrition: Summary Additional details: Pt was admitted to [facility] on 09/20/23. The pt was admitted for electrolyte abnormalities from chronic diarrhea. Pt had pericardiocentesis during admission due to having early signs of tamponade. The pt was transitioned to hospice care on 09/24/23. Pt with family at bedside on 09/28/23 @ 2335. Additional Data Confirmation of : no pulse, no respirations, no heart sounds and pupils fixed and dilated Family: at bedside Attending/PCP notified?: Yes Attending physician: Jordan Pacheco MD Was code activated?: No Autopsy requested?: No test examiner notified?: Yes Organ bank notified?: Yes Advance directives: Yes
--- NOTE | 2023-09-29 00:12 | P.DN_ITS ---
Discharge Sum: Prov Provider Primary care physician: Branden Rivas MD Visit Care Team Role Provider Type Branden Rivas MD Primary Care Provider Staff Physician Chidi Napoles MD Other Providers Staff Physician Ana Rosa Aly MD Other Providers Staff Physician Argelia Dozier MD Other Providers Consulting Physician Mg Box MD Other Providers Staff Physician Yair Baum PA Other Providers Physician Delivery Rep Rossy Wood MD Other Providers Consulting Physician Tirso Patel MD Other Providers Consulting Physician PARUL Martinez Other Providers Physician Delivery Rep Wade Guerra MD Other Providers Staff Physician Isabella Colon APRN Other Providers Nurse Practitioner Edilma Ovalle APRN Other Providers Nurse Practitioner Priyanka Lenz MD Emergency Provider ER Physician Jordan Pacheco MD Admit Provider Staff Physician Attending Provider Admitting clinician: Jordan Pacheco Attending physician on admission: Jordan Pacheco Consults: 09/21/23 11:11 Consult to Case Management [CONS] Routine Reason For Consult: Please consult home health for PT, OT. Eval and treat 09/21/23 16:24 Consult to Case Management [CONS] Routine Reason For Consult: Consult home health PT, OT, eval and treat. 09/23/23 14:27 Consult to Cardiology [CONS] Routine Consulting Provider: Cardiology Reason For Consult: SOB Consult to Pulmonology [CONS] Routine Consulting Provider: Ana Rosa Aly Reason For Consult: hypoxia, SOB 09/24/23 21:36 Consult to Hospice [CONS] Routine Comment: chronic respiratory failure Consulting Provider: Pronouncing clinician: Rios Forrester Discharge Sum: Diag PCOD Cause of : Cardiopulmonary arrest Contributing Factors (1) Hypokalemia: (2) Diarrhea: (3) Generalized weakness: (4) Dehydration, moderate: (5) COPD mixed type: (6) Smoking greater than 30 pack years: (7) Pulmonary cachexia due to COPD: (8) Severe protein-calorie malnutrition: Discharge Sum: Summary Date and Time Date of admission: 09/22/23 12:40 Date of : 09/28/23 Time of : 23:35 Hospital Course prior to Hospital Course Information: 67-year-old female with extensive PMHx, including but not limited to COPD, with cachexia, smoker, ILD, Afib, of presented on 09/20/23 to [facility] with c/o weakness, secondary to diarrhea. Patient arrived to the ER with an empty oxygen tank. Supposed to be on 2L . Dehydrated. Labs showed severe hypokalemia. CO2 was elevated. The pt was admitted for further medical management. The pt was receiving treatment for pna adn c. diff, tachycardia, copd, and abnormal elect rolyte. Despite treatment efforts continued to decline. A consult was placed for hospice on 09/24/23. Summary Details: Pt was admitted to [facility] on 09/20/23. The pt was admitted for electrolyte abnormalities from chronic diarrhea. Pt had pericardiocentesis during admission due to having early signs of tamponade. The pt was transitioned to hospice care on 09/24/23. Pt with family at bedside on 09/28/23 @ 2335. Additional Data Confirmation of as documented by pronouncing clinician: no pulse, no respirations, no heart sounds and pupils fixed and dilated Family: at bedside Attending/PCP notified?: Yes Attending physician: Jordan Pacheco MD Was code activated?: No Autopsy requested?: No fur examiner notified?: Yes Organ bank notified?: Yes Advance directives: Yes Hospice patient?: Yes
== END 2023-09-29 03:15 | disposition expired | DRG 286 ==
LOC: ER 19:00 → 2ND 20:06
PROVIDERS: Internal Medicine; Nurse Practitioner Family; Admitting Provider Internal Medicine Adolescent Medicine; Emergency Provider Student in an Organized Health Care Education/Training Program; PCP Family Medicine; Visit Provider Internal Medicine Adolescent Medicine
PROC: 0W9D30Z Drainage of Pericardial Cavity with Drainage Device, Percutaneous Approach (ICD-10-PCS; principal; 2023-09-24 13:45)
PROC: 0W9D30Z Drainage of Pericardial Cavity with Drainage Device, Percutaneous Approach (ICD-10-PCS; 2023-09-24 13:45)
DX: I31.39 Other pericardial effusion (noninflammatory) (principal); E43 Unspecified severe protein-calorie malnutrition; J16.8 Pneumonia due to other specified infectious organisms; A04.72 Enterocolitis due to Clostridium difficile, not specified as recurrent; Z68.1 Body mass index [BMI] 19.9 or less, adult; J96.11 Chronic respiratory failure with hypoxia; I50.20 Unspecified systolic (congestive) heart failure; J84.9 Interstitial pulmonary disease, unspecified; B49 Unspecified mycosis; R57.9 Shock, unspecified; J44.0 Chronic obstructive pulmonary disease with (acute) lower respiratory infection; I31.4 Cardiac tamponade; E87.6 Hypokalemia; E86.0 Dehydration; F17.210 Nicotine dependence, cigarettes, uncomplicated; Z66 Do not resuscitate; Z51.5 Encounter for palliative care; I25.5 Ischemic cardiomyopathy; R62.7 Adult failure to thrive; J43.9 Emphysema, unspecified; I48.0 Paroxysmal atrial fibrillation; E77.8 Other disorders of glycoprotein metabolism; Z99.81 Dependence on supplemental oxygen
CPT/HCPCS: 33010; 33017; 36415; 71045; 71275; 74176; 76930; 80048; 80053; 81001; 82803; 83605; 83735; 83880; 84100; 84145; 84484; 85007; 85014; 85018; 85025; 86850; 87040; 87636; 93005; 93306; 93308; 93458; 94640; 94761; 97110; 97163; 97166; 97530; 99152; 99153; 99285; C1725; C1769; C1894; J1644; J3370; J3475; Q9967